=== PATIENT | female | born 1945 | race Caucasian/White ===

== ENCOUNTER → 2017-01-08 | Outpatient (CLI) | payer BC ==
--- NOTE | 2017-01-08 15:13 | MAMMOGRAPHY REPORT ---
BILATERAL DIGITAL SCREENING MAMMOGRAM WITH CAD: 01/08/2017 CLINICAL HISTORY: Routine screening. Patient has no complaints. TECHNIQUE: Bilateral CC and MLO views were obtained. Current study was also evaluated with a Compute r Aided Detection (CAD) system. COMPARISON: Comparison is made to exams dated: 01/04/2016 mammogram, 12/31/2014 mammogram, 4 mammogram, 12/27/2012 mammogram, 12/27/2011 mammogram, and 12/21/2010 mammogram - [facility]. BREAST COMPOSITION: The tissue of both breasts is heterogeneously dense, which may obscure small mas ses. FINDINGS: Linear dense, markers overlie each breast, denoting areas of prior surgery. There are marbella gn vascular calcifications in both breasts. There are diffuse bilateral benign rim calcifications an d scattered and grouped punctate benign-appearing microcalcifications. No obvious new mass, webmethods architect ural distortion or cluster of new, suspicious microcalcifications is seen. IMPRESSION: ACR BI-RADS CATEGORY 2: BENIGN There is no mammographic evidence of malignancy. A 1 year screening mammogram is recommended. The pa tient will receive written notification of the results. Approximately 10% of breast cancers are not detected with mammography. A negative mammographic report should not delay biopsy if a clinically suggestive mass is present. Eri Wiley M.D. ay/:01/08/2017 11:02:33 Director Of Student Financial Services: Mirian BULLARDR, M, [facility] letter sent: Normal 1/2 BI-RADS Code: ACR BI-RADS Category 2: Benign
== END | disposition home or self-care (01) ==
LOC: C.MAMM 10:35
PROVIDERS: ATTEND Family Medicine
DX: Z12.31 Encounter for screening mammogram for malignant neoplasm of breast (principal)

== ENCOUNTER → 2017-06-13 | Outpatient (CLI) | payer BC ==
--- NOTE | 2017-06-13 11:12 | DIAGNOSTIC IMAGING REPORT ---
ABDOMEN LIMITED (US) CLINICAL HISTORY: 71 years-old Female presenting with ELEVATED LFT'S. TECHNIQUE: Real-time grayscale and limited color Doppler ultrasound imaging of the abdomen limited to the right upper quadrant was performed. COMPARISON: None. FINDINGS: Pancreas: Visualized portions of the pancreatic head and body normal. Liver: Moderately hyperechogenic parenchyma with partial obscuration of the right hemidiaphragm, likely indicating moderate steatosis. The liver measures 16 cm in maximal sagittal dimension. No sonographic evidence of hepatic mass. Main portal vein patent with normal directional flow. Biliary: No intrahepatic biliary ductal dilatation. Common bile duct measures up to 4 mm in diameter. Gallbladder: Gallstones without evidence of gallbladder distention, wall thickening, or pericholecystic fluid or inflammatory change. Right kidney: Multiple simple cysts evident, the largest at the upper pole measuring 2.7 cm. No hydronephrosis. Ascites: None. Other: None. IMPRESSION: 1. Cholelithiasis. No evidence of cholecystitis or biliary ductal dilatation. 2. Hepatic steatosis. Correlate with liver function tests to exclude steatohepatitis as a cause for abdominal pain. Electronically signed by: Ayo Kimball M.D. 06/13/2017 11:10 AM Dictated Date/Time: 06/13/2017 11:09 AM
== END | disposition home or self-care (01) ==
LOC: C.ULTR 09:26
PROVIDERS: ATTEND Family Medicine
DX: R79.89 Other specified abnormal findings of blood chemistry (principal); Z88.2 Allergy status to sulfonamides; Z88.8 Allergy status to other drugs, medicaments and biological substances; K80.20 Calculus of gallbladder without cholecystitis without obstruction; K76.0 Fatty (change of) liver, not elsewhere classified

== ENCOUNTER 2019-07-08 14:04 | Inpatient (IN) ==
[2019-07-08] MEDS ORDERED: SODIUM CHLORIDE 0.9% 1000ML 1,000 ML IV SCH (14:45)
[2019-07-08] MEDS ORDERED: SODIUM CHLORIDE 0.9% 1000ML 2,000 ML IV ONE (15:02)
--- NOTE | 2019-07-08 15:02 | Emergency Department Note ---
Impression & Plan Weakness, Breast cancer, Abnormal ECG, Diarrhea ED Provider Note NAME: BRENDA GONSAELS AGE: 73 SEX: F : 1945 ARRIVES VIA: Ambulance INFORMANT: Patient ED PROVIDER(S): Rocael Barragan DO CHIEF COMPLAINT: weakness HPI: Patient is a 73-year-old female that presents the ER for weakness. She notes that she was going to get IV fluids from the cancer center and she has needed this throughout her entire treatment of chemo. When she was walking down she became extremely weak. She was lowered to the ground. She did not pass out. This occurred just prior to arrival. She was brought in by EMS. She has history of breast cancer which is metastatic. Last dose of chemo was 3 weeks ago. She denies any dizziness, lightheadedness, chest pain shortness of breath or vomiting. She admits to 4-5 episodes of diarrhea which she has been having throughout her chemotherapy per day. She has also been having persistent nausea as well. No other exacerbating or remitting factors. She notes she has been having bowel incontinence. No focal weakness or numbness in her arms or legs. ROS: See above HPI for pertinent positives & negatives. A total of 10 systems reviewed and were otherwise negative. PAST MEDICAL HISTORY:See Below PAST SURGICAL HISTORY:See Below FAMILY HISTORY:See Below SOCIAL HISTORY:See Below HOME MEDICATIONS:See Below ALLERGIES:See Below VITALS:See Below PHYSICAL EXAMINATION: GENERAL: Sitting up in bed, alert, well appearing, well nourished, no distress, non-toxic EYE EXAM: normal conjunctiva. OROPHARYNX: no exudate, no erythema, lips, buccal mucosa, and tongue normal and mucous membranes are moist NECK: supple, no nuchal rigidity, no adenopathy, non-tender CHEST: Port in right chest LUNGS: Clear to auscultation. Normal chest wall mechanics HEART: no murmurs, S1 normal and S2 normal ABDOMEN: abdomen soft, non-tender, normo-active bowel sounds, no masses, no rebound or guarding. BACK: Back is symmetrical on inspection and there is no deformity, no midline tenderness, no CVA tenderness. SKIN: no rashes and no bruising UPPER EXTREMITIES: upper extremities are grossly normal. LOWER EXTREMITIES: No pitting edema. Calves are equal bilateral NEURO EXAM: Normal sensorium, cranial nerves II-XII grossly intact, normal spe ech, no gross weakness of arms, no gross weakness of legs. MEDICAL DECISION MAKING: Patient is a 73-year-old female with a past medical history of metastatic breast cancer that presents the ER for diffuse weakness loss of bowel function. She was brought in by EMS. IV was established blood work was obtained. Labs show no significant leukocytosis or anemia. INR was unremarkable. D-dimer was elevated. BMP with mild hypokalemia. Creatinine slightly elevated at 1.4 off of baseline of 1. Potassium was repleted. Magnesium was slightly low at 1.7. Mild transaminitis. Troponin was negative. Lipase unremarkable. TSH was elevated but free T4 was normal. Chest x-ray was unremarkable. CTA was performed of the chest due to the positive d-dimer and abnormal EKG with ST depressions and T WI in the inferior and lateral leads which are new. CTA was negative. Patient was updated bedside. She was given 2 L IV fluids. Discussed with hospitalist for observation due to the weakness and questionable dizziness associate with an abnormal EKG. Triage Nursing notes reviewed. Prior medical records reviewed Vital Signs: reviewed and remarkable for no significant abnormalities Differential diagnosis: Infection, dehydration, metabolic abnormality, hypo/hyperglycemia, electrolyte disturbance, anemia, hypoxia, cardiac sources, intracerebral event, toxicologic, neurologic, as well as other pathologies. ER treatment provided: See below Diagnostics interpreted by me: ECG: Sinus rhythm rate of [address] depressions in the inferior anterior and lateral with T wave inversion which is new from old EKG This is new from 03/06/2019 Cardiac Monitoring: An order was placed for continuous cardiac monitoring. The monitor shows a rate of 71 with sinus rhythm. Laboratory studies: As stated above and show below. Imaging studies: Portable AP upright 1 view of the chest shows no focal infiltrate CT Radha of the chest shows no PEs. Consultation(s): Discussed with Gio Shah for further evaluation. ED COURSE: Procedures: none Critical Care: None Past Med/Surg History Medical History (Updated 07/08/19 @ 17:24 by Rocael Barragan DO) Breast cancer, left Constipation Fatty liver High blood pressure High cholesterol Hypothyroidism Lichen sclerosus Rosacea Surgical History (Updated 03/24/19 @ 12:07 by Shira Salinas RN) H/O tooth extraction History of colonoscopy Port-A-Cath in place (03/24/19) Port placement. Dr. Bowling 03/24/19 Social History (Updated 02/28/19 @ 09:43 by Citlalli Bedolla RN) Preferred Language: Faroese Communication Ability: Effective Cloth Stretcher Required: No Beliefs That Will Affect Care: None marital status: Single Current Living Situation: Spouse current occupational status: retired Feels Safe at Home: Yes Smoking Status: Never smoker Hx Alcohol Use: No Hx Substance Use: No Allergies Allergies Allergy/AdvReac Type Severity Reaction Status Date / Time Sulfa (Sulfonamide Allergy Unknown Rash Verified 07/08/19 15:40 Antibiotics) Dxtcrog-Slk-Tbm Reductase AdvReac Unknown Muscle Pain Verified 07/08/19 15:40 Inhibitor Home Meds Home Medications Medication Instructions Recorded Confirmed [id number] 1 drp OPHTHALMIC (EYE) UD PRN 07/08/19 07/08/19 [Refresh Optive Advanced] diphenoxylate-atropine [Lomotil] 1 tab PO UD PRN 07/08/19 07/08/19 levothyroxine 50 mcg PO DAILY 07/08/19 07/08/19 loratadine [Claritin] 10 mg PO DAILY PRN 07/08/19 07/08/19 lorazepam [Ativan] 1 mg PO BID 07/08/19 07/08/19 ondansetron HCl [Zofran] 4 mg PO UD PRN 07/08/19 07/08/19 scopolamine base [Transderm-Scop] 1 patch TRANSDERMAL .Q3DAYS 07/08/19 07/08/19 Results & Data (ED) Vital Signs Vital Signs - 24 hr 07/08/19 14:10 07/08/19 14:42 07/08/19 16:00 Temperature 36.7 C Temperature Source Oral Pulse Rate 92 H 67 Pulse Rate from SpO2 Sensor 68 Pulse Rhythm Regular Pulse Strength Normal Respiratory Rate 20 23 Respiratory Effort / Characteristics Non-Labored Spontaneous Respiratory Depth Normal Respiratory Pattern Regular Blood Pressure 142/67 H Blood Pressure Mean 92 Blood Pressure Position Lying Pulse Oximetry 96 95 100 Oxygen Delivery Method Room Air Room Air Sepsis Recent Fever Within 48 Hours No Sepsis New/Unexplained Change in Mental Status No Sepsis Action Taken by Nursing No Action Required 07/08/19 16:44 Temperature Temperature Source Pulse Rate 75 Pulse Rate from SpO2 Sensor 75 Pulse Rhythm Pulse Strength Respiratory Rate 22 Respiratory Effort / Characteristics Respiratory Depth Respiratory Pattern Blood Pressure 149/58 H Blood Pressure Mean 76 Blood Pressure Position Pulse Oximetry 100 Oxygen Delivery Method Sepsis Recent Fever Within 48 Hours Sepsis New/Unexplained Change in Mental Status Sepsis Action Taken by Nursing Laboratory Data Result diagrams: 07/08/19 15:25 07/08/19 15:25 Lab Results 07/08/19 07/08/19 07/08/19 Range/Units 15:25 15:25 15:25 WBC 10.75 (4.8-10.8) K/uL RBC 4.05 L (4.2-5.4) M/uL Hgb 12.2 (12.0-16.0) g/dL Hct 36.5 L (37-47) % MCV 90.1 (80-100) fL MCH 30.1 (25-34) pg MCHC 33.4 (32-36) g/dL RDW Std Deviation 49.7 H (36.4-46.3) fL RDW Coeff of Rafael 15.0 H (11.5-14.5) % Plt Count 194 (130-400) K/uL MPV 10.3 (7.4-10.4) fL Immature Gran % (Auto) 1.7 % Neut % (Auto) 70.8 % Lymph % (Auto) 15.8 % [place] % (Auto) 11.5 % Eos % (Auto) 0.1 % Baso % (Auto) 0.1 % Immature Gran # (Auto) 0.18 H (0.00-0.02) K/uL Neut # (Auto) 7.61 H (1.4-6.5) K/uL Lymph # (Auto) 1.70 (1.2-3.4) K/uL [place] # (Auto) 1.24 H (0.11-0.59) K/uL Eos # (Auto) 0.01 (0-0.5) K/uL Baso # (Auto) 0.01 (0-0.2) K/uL Toxic Granulation 1+ Dohle Bodies 1+ PT 11.3 (9.0-12.0) Seconds INR 1.1 (0.9-1.1) APTT 24.2 (21.0-31.0) Seconds PTT Ratio 0.9 D-Dimer 1270 H* (0-500) ug/L FEU Sodium 135 L (136-145) mmol/L Potassium 3.1 L (3.5-5.1) mmol/L Chloride 101 (98-107) mmol/L Carbon Dioxide 22 (21-32) mmol/L Anion Gap 12.0 H (3-11) BUN 43 H (7-18) mg/dl Creatinine 1.46 H (0.6-1.2) mg/dl Est Cr Clr Drug Dosing 32.6 ml/min Est GFR ( Amer) 41.2 Est GFR (Non-Af Amer) 35.6 BUN/Creatinine Ratio 29.5 H (10-20) Glucose 140 H (70-99) mg/dl Calcium 9.4 (8.5-10.1) mg/dl Magnesium 1.7 L (1.8-2.4) mg/dl Total Bilirubin 0.8 (0.2-1) mg/dl AST 46 H (15-37) U/L ALT 94 H (12-78) U/L Alkaline Phosphatase 92 (45-117) U/L Total Creatine Kinase 31 (26-192) U/L Troponin I < 0.015 (0-0.045) ng/ml Total Protein 6.9 (6.4-8.2) gm/dl Albumin 3.5 (3.4-5.0) gm/dl Globulin 3.4 (2.5-4.0) gm/dl Albumin/Globulin Ratio 1.0 (0.9-2) Lipase 349 (73-393) U/L TSH 6.610 H (0.300-4.500) uIu/ml Free T4 1.53 (0.8-1.6) ng/dl Administered Medications Ioversol (Optiray 320 125ml) 119 ml IV ONCE PRN PRN Reason: Interaction Checking Stop: 07/12/19 16:28 Last Admin: 07/08/19 16:29 Dose: 119 ml Documented by: [id number] Discontinued Medications Sodium Chloride (Nss 1000ml) 1,000 mls @ 999 mls/hr IV .Q1H1M LISSETTE Stop: 07/08/19 15:45 Last Infusion: 07/08/19 16:25 Dose: 0 mls/hr Documented by: [id number] Admin: 07/08/19 15:30 Dose: 999 mls/hr Documented by: [id number] Sodium Chloride (Nss 1000ml) 2,000 mls @ 999 mls/hr IV .Q2H1M ONE Stop: 07/08/19 17:02 Last Admin: 07/08/19 16:25 Dose: 999 mls/hr Documented by: [id number] Discharge Plan Visit Data Chief Complaint: Syncope (Near Syncope) ED Provider: Rocael Barragan Discharge Problem: Weakness, Breast cancer, Abnormal ECG, Diarrhea Forms Stand Alone Forms: [facility] xaitment Prescriptions Prescriptions: No Action ondansetron HCl [Zofran] 8 mg tablet 4 mg PO UD PRN (Reason: Nausea) RF: 0 diphenoxylate-atropine [Lomotil] 2.5-0.025 mg tablet 1 tab PO UD PRN (Reason: Diarrhea) RF: 0 levothyroxine 50 mcg tablet 50 mcg PO DAILY RF: 0 lorazepam [Ativan] 1 mg tablet 1 mg PO BID RF: 0 scopolamine base [Transderm-Scop] 1 mg over 3 days patch 3 day 1 patch transdermal .Q3DAYS RF: 0 loratadine [Claritin] 10 mg Tablet 10 mg PO DAILY PRN (Reason: ALLERGIES) RF: 0 Refresh Optive Advanced 0.5-1-0.5 % Drops 1 drp OPHTHALMIC (EYE) UD PRN (Reason: Dry Eyes) RF: 0 Discharge Problem: Breast cancer Qualifiers: Breast location: unspecified site of breast Estrogen receptor status: unspecified Patient sex: female Laterality: unspecified laterality Qualified Code(s): C50.919 - Malignant neoplasm of unspecified site of unspecified female breast Diarrhea Qualifiers: Diarrhea type: unspecified type Qualified Code(s): R19.7 - Diarrhea, unspecified
--- NOTE | 2019-07-08 15:09 | XRay Report ---
XR chest 1V portable HISTORY: syncope COMPARISON: None. FINDINGS: Mild elevation of the right hemidiaphragm, unchanged. The lungs are clear. No pleural effus ions. No pneumothorax. The heart is normal in size. Right subclavian Port-A-Cath terminates at the pr oximal SVC. IMPRESSION: No acute process. ACT 112: Negative or not required by law. Electronically signed by: James Hollingsworth M.D. 07/08/2019 3:07 PM
[2019-07-08 15:35] LABS: Hematocrit (blood only) 36.5 % (37-47); Hemoglobin 12.2 g/dL (12.0-16.0); Mean Corpuscular Hemoglobin 30.1 pg (25-34); Mean Corpuscular Hgb Conc 33.4 g/dL (32-36); Mean Corpuscular Volume 90.1 fL (80-100); Mean Platelet Volume 10.3 fL (7.4-10.4); Platelet Count 194 K/uL (130-400); RDW Standard Deviation 49.7 fL (36.4-46.3); Red Blood Count 4.05 M/uL (4.2-5.4); White Blood Count 10.75 K/uL (4.8-10.8)
[2019-07-08 16:03] LABS: Alanine Aminotransferase 94 U/L (12-78); Albumin Level 3.5 gm/dl (3.4-5.0); Aspartate Aminotransferase 46 U/L (15-37); BUN Creatinine Ratio 29.5 (10-20); Blood Urea Nitrogen 43 mg/dl (7-18); Calcium 9.4 mg/dl (8.5-10.1); Carbon Dioxide 22 mmol/L (21-32); Chloride 101 mmol/L (98-107); Creatinine Clr Calc Pharmacy 32.6 ml/min; Est GFR (African American) 41.2; Est GFR (Non-African American) 35.6; Glucose 140 mg/dl (70-99); Lipase 349 U/L (73-393); Magnesium 1.7 mg/dl (1.8-2.4); Potassium 3.1 mmol/L (3.5-5.1); Sodium 135 mmol/L (136-145)
[2019-07-08 16:04] LABS: INR 1.1 (0.9-1.1); Partial Thromboplastin Ratio 0.9; Partial Thromboplastin Time 24.2 Seconds (21.0-31.0); Prothrombin Time 11.3 Seconds (9.0-12.0)
[2019-07-08 16:09] LABS: D Dimer 1270 ug/L FEU (0-500)
[2019-07-08 16:13] LABS: Alkaline Phosphatase 92 U/L (45-117); Bilirubin,Total 0.8 mg/dl (0.2-1); Creatine Kinase 31 U/L (26-192); Globulin 3.4 gm/dl (2.5-4.0); Total Protein 6.9 gm/dl (6.4-8.2); Troponin I < 0.015 ng/ml (0-0.045)
--- NOTE | 2019-07-08 16:14 | Electrocardiogram Report ---
Test Reason : Blood Pressure : / mmHG Vent. Rate : 093 BPM Atrial Rate : 093 BPM P-R Int : 140 ms QRS Dur : 090 ms QT Int : 352 ms P-R-T Axes : 030 041 -84 degrees QTc Int : 437 ms Poor data quality, interpretation may be adversely affected Normal sinus rhythm Abnormal ECG When compared with ECG of 06-MAR-2019 11:15, Vent. rate has increased BY 34 BPM T wave inversion now evident in Inferior leads T wave inversion now evident in Anterolateral leads Confirmed by Rishi Bautista ([id number]) on 07/08/2019 4:14:33 PM Referred By: Confirmed By:Rishi Bautista
[2019-07-08 16:25] LABS: T4 Free Thyroxine 1.53 ng/dl (0.8-1.6)
[2019-07-08 16:29] LABS: Basophils # (auto) 0.01 K/uL (0-0.2); Basophils % (auto) 0.1 %; Dohle Bodies 1+; Eosinophils # (auto) 0.01 K/uL (0-0.5); Eosinophils % (auto) 0.1 %; Immature Granulocytes # (auto) 0.18 K/uL (0.00-0.02); Immature Granulocytes % (auto) 1.7 %; Lymphocytes % (auto) 15.8 %; Monocytes # (auto) 1.24 K/uL (0.11-0.59); Monocytes % (auto) 11.5 %; Neutrophils # (auto) 7.61 K/uL (1.4-6.5); Neutrophils % (auto) 70.8 %; Toxic Granulation 1+
[2019-07-08] MEDS ORDERED: OPTIRAY 320 125ml IV PRN (16:29)
--- NOTE | 2019-07-08 16:38 | CT Scan Report ---
CT angio chest PE protocol CT DOSE: 541.45 mGy.cm HISTORY: Chest pain. Dyspnea. PE TECHNIQUE: Multiaxial CT images of the chest were performed following the intravenous administration of contrast to evaluate the pulmonary arteries. Maximal intensity projection images were also obtaine d. A dose lowering technique was utilized adhering to the principles of ALARA. COMPARISON STUDY: None. FINDINGS: There is a normal caliber thoracic aorta with no evidence for dissection. There is no evide nce for pulmonary embolus. No pleural effusions. No pneumothorax. The liver and spleen are unremarkab le. No mediastinal or hilar lymphadenopathy. The central airways are patent. The lungs are clear. IMPRESSION: No evidence for pulmonary embolus. The lungs are considered clear. ACT 112: Negative or not required by law. The above report was generated using voice recognition software. It may contain grammatical, syntax or spelling errors. Electronically signed by: Sachin Ko M.D. 07/08/2019 4:37 PM
[2019-07-08] MEDS ORDERED: MAGNESIUM SULFATE / D5W 1 GM/100 ML BAG IV STA (17:37)
--- NOTE | 2019-07-08 18:11 | History & Physical Report ---
Date of Service July 08, 2019 Assessment & Plan (1) Weakness: Generalized suspected secondary to severe protein-calorie malnutrition and dehydration from diarrhea. Dietary consult PT eval (2) Abnormal ECG: ST changes without chest pain or shortness of breath. Will repeat troponin in AM but suspect demand-ischemia related to dehydration. Patient to be observed on telemetry for this reason (3) Diarrhea: Continue to monitor. Unlikely c. diff as related to chemotherapy but if watery will need to test for this. (4) Anisocoria: Left mydriasis suspect secondary to scopolamine patch Monitor for improvement off of patch. Lack of other focal neurological findings therefore do not feel CT head required at this stage. (5) Breast cancer, left: taking a break from chemotherapy due to reduced weight and malnourished state (6) Severe protein-calorie malnutrition: Boost ordered Dietary consult (7) Nausea: Suspect related to chemotherapy, no longer on this therefore will continue ondansetron PRN but will discontinue scopolamine patch due to anisocoria as above and in case contributing towards her drowsiness. (8) DVT prophylaxis: Heparin 5000 units BID Admission and Anticipated Discharge Date Admission Date: 07/08/2019 History of Present Illness Chief Complaint: Generalized weakness Primary Care Provider: Josemanuel Lee MD Ciarra Barrios is a 73 year old female who presents to the ER after being unable to walk into the [facility] center for her IV fluid treatment for ongoing diarrhea secondary to chemotherapy. She notes her chemotherapy is currently on hold due to this side effect and her weight loss. Today while trying to walk up the stops she sudden felt very weak in her legs and was unable to get any further so sat down and her friend alerted the [facility] center who advised her to call for an ambulance. On prior documentation it was noted she was presyncopal however the patient denies this to me and just reports generalized weakness. She has not been out of the bed since then but feels improved since coming to the ER. With regards to her EKG changes she denies any shortness of breath or chest pain. No claudication, presyncope, syncope or palpitations. Allergies Allergy/AdvReac Type Severity Reaction Status Date / Time Sulfa (Sulfonamide Allergy Unknown Rash Verified 07/08/19 15:40 Antibiotics) Ropwfmy-Vzw-Mkv Reductase AdvReac Unknown Muscle Pain Verified 07/08/19 15:40 Inhibitor Home Medications Home Medications Medication Instructions Recorded Confirmed Type [id number] 1 drp OPHTHALMIC (EYE) UD PRN 07/08/19 07/08/19 History [Refresh Optive Advanced] diphenoxylate-atropine [Lomotil] 1 tab PO BID PRN 07/08/19 07/08/19 History levothyroxine 50 mcg PO DAILY 07/08/19 07/08/19 History loratadine [Claritin] 10 mg PO DAILY PRN 07/08/19 07/08/19 History lorazepam [Ativan] 1 mg PO BID 07/08/19 07/08/19 History ondansetron HCl [Zofran] 4 mg PO UD PRN 07/08/19 07/08/19 History scopolamine base [Transderm-Scop] 1 patch TRANSDERMAL .Q3DAYS 07/08/19 07/08/19 History Past Med/Surg History Medical History (Updated 07/08/19 @ 22:01 by Gio Shah MD) Breast cancer, left Constipation Fatty liver High blood pressure High cholesterol Hypothyroidism Lichen sclerosus Rosacea Surgical History (Updated 03/24/19 @ 12:07 by Shira Salinas RN) H/O tooth extraction History of colonoscopy Port-A-Cath in place (03/24/19) Port placement. Dr. Bowling 03/24/19 Social History (Updated 02/28/19 @ 09:43 by Citlalli Bedolla, RN) Preferred Language: Mauritian Communication Ability: Effective Buggy Runner Required: No Beliefs That Will Affect Care: Hinduism Hinduism Beliefs: Jainism marital status: Single Current Living Situation: Alone current occupational status: retired Other Information That Helps Us Care for You: No Feels Safe at Home: No Is there a partner from a previous relationship who is making you feel unsafe now?: No Any Concerns about Your Family Situation: No Would You Like to Speak to Someone About Your Situation: No Safety Concerns: Feels Safe At This Time Smoking Status: Never smoker Hx Alcohol Use: No Hx Substance Use: No Review of Systems Review of Systems: All systems reviewed & are unremarkable except as noted in HPI & below Physical Exam Constitutional: well developed and + cachectic; + not well nourished and no acute distress Eyes: + anicteric sclerae and + anisocoria (mydriasis left eye) ENMT: external ear and nose normal, oropharynx normal Neck: trachea midline, no thyromegaly Respiratory: normal respiratory effort, lungs clear to auscultation Cardiovascular: RRR, no murmur, no edema Gastrointestinal (Abdomen): normal bowel sounds, soft, nontender, no hepatosplenomegaly Musculoskeletal: no cyanosis or clubbing, extremities motor strength 5/5 Skin: no rashes, warm and dry Neurologic: moves all extremities and awake; no focal motor deficits (LE stren gth 5/5 b/l equal) and not confused Speech / Cognition: normal speech Motor/Sensory: no tremor, no pronator drift and no sensory deficit Psychiatric: A+Ox3, euthymic affect Results & Data Results & Data ([facility]) Vital Signs (Past 12 Hours) Vital Signs Temp Pulse Resp BP Pulse Ox 07/08/19 17:30 68 22 156/56 H 100 07/08/19 17:01 68 18 122/65 98 07/08/19 16:44 75 22 149/58 H 100 07/08/19 16:00 67 23 100 07/08/19 14:42 95 07/08/19 14:10 36.7 C 92 H 20 142/67 H 96 Diagnostic Findings XR chest 1V portable IMPRESSION: No acute process. CT angio chest PE protocol IMPRESSION: No evidence for pulmonary embolus. The lungs are considered clear. ECG Indication: weakness Rate (beats per minute): 93 Rhythm: normal sinus Findings: + T-wave inversion (anterlateral, inferior) Comparison ECG Date: from (03/06/2019) Change: the following changes noted (TWI are new) Code Status & VTE Plan Code Status DNR/DNI as per patient wishes VTE Prophylaxis Plan VTE Prophylaxis will be ordered: Yes PG Care Time/CCT Total # of Minutes Spent Total Time Spent with Patient: Total time spent is greater than 50% in coordination of care (as documented) at patient's floor/unit and/or counseling patient: Coding Level of Care Code 40603 OBS Care - Level 3 Diagnoses Weakness R53.1 Abnormal ECG R94.31 Diarrhea R19.7 Diarrhea type: unspecified type Anisocoria H57.02 Breast cancer, left C50.912 Severe protein-calorie malnutrition E43 Nausea R11.0 DVT prophylaxis Z29.9 (1) Diarrhea Diarrhea type: unspecified type Qualified Code(s): R19.7 - Diarrhea, unspecified
[2019-07-08] MEDS ORDERED: ONDANSETRON INJ 2 MG/ML 2 ML VIAL ONE (19:37)
[2019-07-08] MEDS ORDERED: DIPHENOXYLATE/ATROPINE 2.5/0.025MG TAB PO PRN ×2 (19:55→21:53)
[2019-07-08] MEDS ORDERED: LORATADINE 10 MG TAB PO PRN (19:55)
[2019-07-08] MEDS ORDERED: ARTIFICIAL TEARS OP PRN (20:00)
[2019-07-08] MEDS: HEPARIN SOD 5,000 UNIT/0.5 ML VIAL SQ SCH (20:48)
[2019-07-08] MEDS: POTASSIUM CHLORIDE 40 MEQ in SODIUM CHLORIDE 0.9% 1000ML 1,000 ML IV SCH (20:48)
[2019-07-08] MEDS ORDERED: ACETAMINOPHEN 325 MG TAB PO PRN (21:02)
[2019-07-08] MEDS ORDERED: ONDANSETRON INJ 2 MG/ML 2 ML VIAL IV PRN (21:02)
[2019-07-08] MEDS ORDERED: LORazepam 0.5 MG TAB PO PRN (21:23)
[2019-07-09] MEDS ORDERED: ONDANSETRON INJ 2 MG/ML 2 ML VIAL IV STA (00:11)
[2019-07-09] MEDS: LEVOTHYROXINE SODIUM 50 MCG TABLET PO SCH (05:32)
[2019-07-09] MEDS: HEPARIN SOD 5,000 UNIT/0.5 ML VIAL SQ SCH ×2 (07:47→20:35)
[2019-07-09] MEDS: POTASSIUM CHLORIDE 40 MEQ in SODIUM CHLORIDE 0.9% 1000ML 1,000 ML IV SCH ×2 (07:47→19:10)
[2019-07-09 08:40] LABS: Albumin Level 2.6 gm/dl (3.4-5.0); BUN Creatinine Ratio 30.4 (10-20); Calcium 8.3 mg/dl (8.5-10.1); Creatinine Clr Calc Pharmacy 50.1 ml/min; Est GFR (African American) 69.4; Est GFR (Non-African American) 59.8; Potassium 3.3 mmol/L (3.5-5.1)
[2019-07-09 08:47] LABS: Albumin Globulin Ratio 0.9 (0.9-2); Bilirubin,Total 0.6 mg/dl (0.2-1); Globulin 2.9 gm/dl (2.5-4.0); Phosphorus 2.6 mg/dl (2.5-4.9); Total Protein 5.5 gm/dl (6.4-8.2); Troponin I 0.017 ng/ml (0-0.045)
[2019-07-09] MEDS: METOCLOPRAMIDE HCL INJ 5 MG/ML 2 ML VIAL IV SCH ×2 (13:37→19:10)
--- NOTE | 2019-07-09 16:07 | Hospitalist Progress Note ---
Date of Service July 09, 2019 Assessment & Plan (1) Weakness: Generalized suspected secondary to severe protein-calorie malnutrition and dehydration from diarrhea. participating in therapy start Reglan to try to help with nausea/vomiting, dietary consult placed CM making referral to [facility] for rehab (2) Abnormal ECG: ST changes without chest pain or shortness of breath no elevation in troponin no further work up at this time (3) Diarrhea: C diff negative (4) Anisocoria: Left mydriasis suspect secondary to scopolamine patch improved (5) Breast cancer, left: taking a break from chemotherapy due to reduced weight and malnourished state (6) Severe protein-calorie malnutrition: Boost ordered Dietary consult (7) Nausea: Suspect related to chemotherapy, no longer on this therefore will continue ondansetron PRN but will discontinue scopolamine patch due to anisocoria as above and in case contributing towards her drowsiness start on Reglan 10mg IV q6, see if she has improvement over next 48 hours (8) DVT prophylaxis: Heparin 5000 units BID (9) Hypokalemia: improving with IV fluids, continue 40mEq in fluids, repeat BMP tomorrow (10) Dehydration: resolving with IV fluids, continue another 24 hours as PO intake is sub optimal Admission and Anticipated Discharge Date Admission Date: July 08, 2019 Subjective patient with difficult time eating, she vomits anything she tries to eat says she has tried numerous anti-emetics stopped chemo in May but still with poor oral intake, vomiting, diarrhea, getting weaker participating in therapy d/w CM, made referral to [facility], patient agrees will try some Reglan for her nausea/vomiting no chest pain, no dyspnea, no fever/chills Review of Systems Review of Systems: All systems reviewed & are unremarkable except as noted in HPI & below Constitutional: + fatigue and + weakness; no fever Respiratory: no cough and no dyspnea Cardiovascular: no chest pain and no edema Gastrointestinal: + nausea and + vomiting; no abdominal pain, no constipation and no diarrhea/loose stools Physical Exam Constitutional: well developed and + thin; no acute distress Eyes: PERRL, conjunctivae normal, anicteric sclerae ENMT: external ear and nose normal, oropharynx normal Neck: trachea midline, no thyromegaly Respiratory: normal respiratory effort, lungs clear to auscultation Cardiovascular: RRR, no murmur, no edema Gastrointestinal (Abdomen): normal bowel sounds, soft, nontender, no hepatosplenomegaly Musculoskeletal: no cyanosis or clubbing, extremities motor strength 5/5 Skin: no rashes, warm and dry Neurologic: patellar DTR's 2+ bilat, sensation intact and PERRL, EOMI, accommodation nl, no face palsy, no dysarthria Psychiatric: A+Ox3, euthymic affect Lymphatic: no cervical or axillary lymphadenopathy Results & Data Results & Data ([facility]) Vital Signs (Past 12 Hours) Vital Signs Temp Pulse Pulse Resp BP Pulse Ox 07/09/19 15:17 36.6 C 73 18 151/70 H 92 07/09/19 14:49 75 07/09/19 11:13 36.7 C 80 18 157/67 H 96 07/09/19 07:44 36.9 C 61 20 147/85 H 97 07/09/19 07:15 67 Laboratory Results Laboratory Results - last 24 hr 07/08/19 07/08/19 07/08/19 15:25 15:25 15:25 Immature Gran % (Auto) 1.7 Neut % (Auto) 70.8 Lymph % (Auto) 15.8 [place] % (Auto) 11.5 Eos % (Auto) 0.1 Baso % (Auto) 0.1 Immature Gran # (Auto) 0.18 H Neut # (Auto) 7.61 H Lymph # (Auto) 1.70 [place] # (Auto) 1.24 H Eos # (Auto) 0.01 Baso # (Auto) 0.01 Toxic Granulation 1+ Dohle Bodies 1+ PT 11.3 INR 1.1 APTT 24.2 PTT Ratio 0.9 D-Dimer 1270 H* Sodium Potassium Chloride Carbon Dioxide Anion Gap BUN Creatinine Est Cr Clr Drug Dosing Est GFR ( Amer) Est GFR (Non-Af Amer) BUN/Creatinine Ratio Glucose POC Glucose Calcium Phosphorus Magnesium Total Bilirubin 0.8 AST ALT Alkaline Phosphatase 92 Total Creatine Kinase 31 Troponin I < 0.015 Total Protein 6.9 Albumin Globulin 3.4 Albumin/Globulin Ratio 1.0 TSH 6.610 H Free T4 1.53 07/09/19 07/09/19 07:26 07:33 Immature Gran % (Auto) Neut % (Auto) Lymph % (Auto) [place] % (Auto) Eos % (Auto) Baso % (Auto) Immature Gran # (Auto) Neut # (Auto) Lymph # (Auto) [place] # (Auto) Eos # (Auto) Baso # (Auto) Toxic Granulation Dohle Bodies PT INR APTT PTT Ratio D-Dimer Sodium 141 Potassium 3.3 L Chloride 111 H Carbon Dioxide 22 Anion Gap 8.0 BUN 29 H Creatinine 0.95 D Est Cr Clr Drug Dosing 50.1 Est GFR ( Amer) 69.4 Est GFR (Non-Af Amer) 59.8 BUN/Creatinine Ratio 30.4 H Glucose 91 POC Glucose 87 Calcium 8.3 L Phosphorus 2.6 Magnesium 2.0 Total Bilirubin 0.6 AST 29 ALT 63 Alkaline Phosphatase 70 Total Creatine Kinase Troponin I 0.017 Total Protein 5.5 L D Albumin 2.6 L Globulin 2.9 Albumin/Globulin Ratio 0.9 TSH Free T4 Medications Administered Current Inpatient Medications Acetaminophen (Tylenol) 650 mg PO Q4H PRN PRN Reason: Pain or Fever Stop: 08/07/19 21:01 Artificial Tears (Artificial Tears) 1 drops OP PRN PRN PRN Reason: DRY EYES Stop: 08/07/19 19:59 Diphenoxylate HCl/Atropine (Lomotil) 1 tab PO Q6H PRN PRN Reason: Diarrhea Stop: 08/07/19 19:54 Heparin Sodium (Porcine) (Heparin Sodium (Porcine)) 5,000 units SQ Q12 [facility] Stop: 08/07/19 20:59 Last Admin: 07/09/19 07:47 Dose: 5,000 units Documented by: Potassium Chloride 40 meq/ (Sodium Chloride) 1,020 mls @ 100 mls/hr IV .[id number] [facility] Stop: 08/07/19 20:14 Last Admin: 07/09/19 07:47 Dose: 100 mls/hr Documented by: Levothyroxine Sodium (Synthroid) 50 mcg PO DAILYBB [facility] Stop: 08/08/19 06:29 Last Admin: 07/09/19 05:32 Dose: Not Given Documented by: Loratadine (Claritin) 10 mg PO DAILY PRN PRN Reason: ALLERGIES Stop: 08/07/19 19:54 Lorazepam (Ativan) 0.5 mg PO Q12H PRN PRN Reason: Anxiety Stop: 08/07/19 21:22 Metoclopramide HCl (Reglan) 10 mg IV Q6H [facility] Stop: 08/08/19 12:59 Last Admin: 07/09/19 13:37 Dose: 10 mg Documented by: Ondansetron HCl (Zofran) 4 mg IV Q6H PRN PRN Reason: Nausea Stop: 08/07/19 21:01 PG Care Time/CCT Total # of Minutes Spent Total Time Spent with Patient: Total time spent is greater than 50% in coordination of care (as documented) at patient's floor/unit and/or counseling patient: Coding Level of Care Code 16017 Subseq Hosp Care Lvl 3 Diagnoses Weakness R53.1 Abnormal ECG R94.31 Diarrhea R19.7 Diarrhea type: unspecified type Anisocoria H57.02 Breast cancer, left C50.912 Severe protein-calorie malnutrition E43 Nausea R11.0 DVT prophylaxis Z29.9 Hypokalemia E87.6 Dehydration E86.0 (1) Diarrhea Diarrhea type: unspecified type Qualified Code(s): R19.7 - Diarrhea, unspecified
[2019-07-10] MEDS: METOCLOPRAMIDE HCL INJ 5 MG/ML 2 ML VIAL IV SCH ×4 (00:07→19:33)
[2019-07-10] MEDS: POTASSIUM CHLORIDE 40 MEQ in SODIUM CHLORIDE 0.9% 1000ML 1,000 ML IV SCH ×2 (05:17→15:52)
[2019-07-10] MEDS: LEVOTHYROXINE SODIUM 50 MCG TABLET PO SCH (05:17)
[2019-07-10] MEDS: HEPARIN SOD 5,000 UNIT/0.5 ML VIAL SQ SCH ×2 (08:36→21:21)
[2019-07-10] MEDS ORDERED: ONDANSETRON INJ 2 MG/ML 2 ML VIAL IV PRN (10:39)
[2019-07-10] MEDS ORDERED: DEXAMETHASONE SOD PHOSPHATE 6 MG in SYRINGE 0 ML IV SCH (11:00)
[2019-07-10] MEDS: HEPARIN 100 UNIT/ML 5ML FLUSH FLUSH PRN (12:19)
--- NOTE | 2019-07-10 13:00 | Magnetic Resonance Report ---
MR brain wo con HISTORY: 73 years-old Female Intractable vomiting, breast CA, r/o brain mets acute vomiting. History of breast cancer. COMPARISON: PET CT 02/24/2019 TECHNIQUE: Planar multisequence MRI of the brain was obtained without the use of IV contrast. FINDINGS: Steno Pool Supervisor localizer images demonstrate no gross extracranial abnormality. There is no restricted diffusio n to suggest acute or subacute infarct. Midline structures including the corpus callosum, brainstem, optic chiasm, pituitary and pineal glands appear unremarkable on the sagittal T1 series. There is no cerebellar tonsillar herniation. Note is made of hyperostosis frontalis interna. Degenerative changes are seen involving the imaged cervical spine. There is no acute intracranial hemorrhage, midline shift, abnormal extra axial collection, hydrocepha lana or intracranial mass. Age-related involutional changes. Extensive T2/FLAIR hyperintensities about the white matter are suggestive of chronic microvascular ischemic disease. Evaluation for metastatic disease is limited without the use of IV contrast. Major vascular flow voids are unremarkable. Masto id air cells are clear. Mild mucosal thickening of the ethmoid air cells and nasal turbinates. The sk ull, orbits and soft tissues are otherwise unremarkable. IMPRESSION: 1. No acute intracranial abnormality. 2. Age-related involutional changes with T2/FLAIR hyperintensities throughout the white matter sugges tive of probable chronic microvascular ischemic disease. 3. Limited evaluation for metastatic disease without the use of IV contrast. ACT 112: Negative or not required by law. The above report was generated using voice recognition software. It may contain grammatical, syntax o r spelling errors. Electronically signed by: Tomas Valdes M.D. 07/10/2019 12:59 PM
--- NOTE | 2019-07-10 17:33 | Hospitalist Progress Note ---
Date of Service July 10, 2019 Assessment & Plan (1) Weakness: Generalized suspected secondary to severe protein-calorie malnutrition and dehydration from diarrhea. participating in therapy start Reglan to try to help with nausea/vomiting -- no improvement today CM making referral to [facility] for rehab not medically stable, will make a full admission (2) Abnormal ECG: ST changes without chest pain or shortness of breath no elevation in troponin no further work up at this time (3) Diarrhea: C diff negative can use Lomotil PRN but not keeping anything down (4) Anisocoria: Left mydriasis suspect secondary to scopolamine patch improved (5) Breast cancer, left: taking a break from chemotherapy due to reduced weight and malnourished state patient says she wants quality of life over quantity right now she has no quality with her nausea discussed palliative care consult, will wait for time being, confirms she is DNR, DNI (6) Severe protein-calorie malnutrition: Boost ordered Dietary consult (7) Nausea: Suspect related to chemotherapy but no longer on it since May start on Reglan 10mg IV q6 - no improvement consider gall bladder imaging tomorrow, but no pain in RUQ, dyskinesis? (8) DVT prophylaxis: Heparin 5000 units BID (9) Hypokalemia: resolved with IV fluids, continue 40mEq in fluids, repeat BMP tomorrow (10) Dehydration: resolving with IV fluids, continue another 24 hours, reduce rate Admission and Anticipated Discharge Date Admission Date: July 10, 2019 Subjective ongoing nausea and vomiting, cannot keep anything down no improvement with Zofran and Reglan sent for MRI brain -- no evidence of brain mets patient frustrated, cannot keep anything down she does not feel well enough to go to rehab today, I agree no labs today Review of Systems Review of Systems: All systems reviewed & are unremarkable except as noted in HPI & below Gastrointestinal: + nausea, + vomiting and + diarrhea/loose stools; no abdominal pain and no constipation Physical Exam Constitutional: well developed and + thin; no acute distress Eyes: PERRL, conjunctivae normal, anicteric sclerae ENMT: external ear and nose normal, oropharynx normal Neck: trachea midline, no thyromegaly Respiratory: normal respiratory effort, lungs clear to auscultation Cardiovascular: RRR, no murmur, no edema Gastrointestinal (Abdomen): normal bowel sounds, soft, nontender, no hepatosplenomegaly Musculoskeletal: no cyanosis or clubbing, extremities motor strength 5/5 Skin: no rashes, warm and dry Neurologic: patellar DTR's 2+ bilat, sensation intact and PERRL, EOMI, accommodation nl, no face palsy, no dysarthria Psychiatric: A+Ox3, euthymic affect Lymphatic: no cervical or axillary lymphadenopathy Results & Data Results & Data ([facility]) Vital Signs (Past 12 Hours) Vital Signs Temp Pulse Pulse Resp BP Pulse Ox 07/10/19 16:06 62 07/10/19 15:03 37.1 C 72 20 125/64 92 07/10/19 11:10 36.7 C 59 L 20 144/64 H 98 07/10/19 07:46 36.7 C 62 20 138/74 98 07/10/19 07:24 74 Diagnostic Findings MR brain wo con HISTORY: 73 years-old Female Intractable vomiting, breast CA, r/o brain mets acute vomiting. History of breast cancer. COMPARISON: PET CT 02/24/2019 TECHNIQUE: Planar multisequence MRI of the brain was obtained without the use of IV contrast. FINDINGS: Desk Pen Set Assembler localizer images demonstrate no gross extracranial abnormality. There is no restricted diffusion to suggest acute or subacute infarct. Midline structures including the corpus callosum, brainstem, optic chiasm, pituitary and pineal glands appear unremarkable on the sagittal T1 series. There is no cerebellar tonsillar herniation. Note is made of hyperostosis frontalis interna. Degenerative changes are seen involving the imaged cervical spine. There is no acute intracranial hemorrhage, midline shift, abnormal extra axial collection, hydrocephalus or intracranial mass. Age-related involutional changes. Extensive T2/FLAIR hyperintensities about the white matter are suggestive of chronic microvascular ischemic disease. Evaluation for metastatic disease is limited without the use of IV contrast. Major vascular flow voids are unremarkable. Mastoid air cells are clear. Mild mucosal thickening of the ethmoid air cells and nasal turbinates. The skull, orbits and soft tissues are otherwise unremarkable. IMPRESSION: 1. No acute intracranial abnormality. 2. Age-related involutional changes with T2/FLAIR hyperintensities throughout the white matter suggestive of probable chronic microvascular ischemic disease. 3. Limited evaluation for metastatic disease without the use of IV contrast. Medications Administered Current Inpatient Medications Acetaminophen (Tylenol) 650 mg PO Q4H PRN PRN Reason: Pain or Fever Stop: 08/07/19 21:01 Artificial Tears (Artificial Tears) 1 drops OP PRN PRN PRN Reason: DRY EYES Stop: 08/07/19 19:59 Diphenoxylate HCl/Atropine (Lomotil) 1 tab PO Q6H PRN PRN Reason: Diarrhea Stop: 08/07/19 19:54 Heparin Sodium (Porcine) (Heparin Sodium (Porcine)) 5,000 units SQ Q12 [facility] Stop: 08/07/19 20:59 Last Admin: 07/10/19 08:36 Dose: 5,000 units Documented by: Heparin Sodium (Porcine) (Heparin Sod 100 Unit/Ml Flush) 5 ml FLUSH PRN PRN PRN Reason: Flush Stop: 08/08/19 23:44 Last Admin: 07/10/19 12:19 Dose: 5 ml Documented by: Potassium Chloride 40 meq/ (Sodium Chloride) 1,020 mls @ 100 mls/hr IV .[id number] [facility] Stop: 08/07/19 20:14 Last Admin: 07/10/19 15:52 Dose: 100 mls/hr Documented by: Ondansetron HCl 8 mg/ Dextrose 54 mls @ 216 mls/hr IV Q6H PRN PRN Reason: Nausea Stop: 08/09/19 10:46 Levothyroxine Sodium (Synthroid) 50 mcg PO DAILYBB [facility] Stop: 08/08/19 06:29 Last Admin: 07/10/19 05:17 Dose: 50 mcg Documented by: Loratadine (Claritin) 10 mg PO DAILY PRN PRN Reason: ALLERGIES Stop: 08/07/19 19:54 Lorazepam (Ativan) 0.5 mg PO Q12H PRN PRN Reason: Anxiety Stop: 08/07/19 21:22 Metoclopramide HCl (Reglan) 10 mg IV Q6H [facility] Stop: 08/08/19 12:59 Last Admin: 07/10/19 13:22 Dose: 10 mg Documented by: PG Care Time/CCT Total # of Minutes Spent Total Time Spent with Patient: Total time spent is greater than 50% in coordination of care (as documented) at patient's floor/unit and/or counseling patient: Coding Level of Care Code 53566 Subseq Hosp Care Lvl 3 Diagnoses Weakness R53.1 Abnormal ECG R94.31 Diarrhea R19.7 Diarrhea type: unspecified type Anisocoria H57.02 Breast cancer, left C50.912 Severe protein-calorie malnutrition E43 Nausea R11.0 DVT prophylaxis Z29.9 Hypokalemia E87.6 Dehydration E86.0 (1) Diarrhea Diarrhea type: unspecified type Qualified Code(s): R19.7 - Diarrhea, unspecified
[2019-07-10] MEDS: ondansetron HCL 8 MG in DEXTROSE 5% 50 ML IV PRN (21:55)
[2019-07-10] MEDS ORDERED: MoRPHine SULFATE 2 MG/ML CARP IV STA ×2 (22:47→23:56)
[2019-07-10] MEDS ORDERED: IOVERSOL 100ml IV PRN (23:12)
[2019-07-10] MEDS ORDERED: PIPERACILL/TAZOBAC CONSULT ACTIVE PRN (23:57)
[2019-07-11] MEDS ORDERED: PIPERACILLIN/TAZOBACTAM 3.375 GM in DEXTROSE 5% 100 ML IV ONE (00:15)
[2019-07-11] MEDS ORDERED: SODIUM CHLORIDE 0.9% 1000ML 1,000 ML IV SCH (00:30)
[2019-07-11] MEDS ORDERED: MoRPHine SULFATE 2 MG/ML CARP IV STA ×2 (00:31→00:48)
[2019-07-11] MEDS: PANTOprazole 40 MG in SYRINGE 0 ML IV SCH ×3 (00:35→21:58)
--- NOTE | 2019-07-11 00:49 | Surgery Consultation ---
Date of Consultation July 11, 2019 Assessment & Plan (1) Duodenal ulcer perforation: pt is a 73 year-old female who was admitted to hospital for dehydration, last evening pt started have abdominal pain, CT scan - duodenal ulcer perforation, IMP: Duodenal ulcer perforation, Plan, I recommend to do emergent exploratory laparotomy, repair duodenal perforation, D/W benefits, risks and alternatives of the surgery, the risks - infection, bleeding, sepsis, Mi, DVT, , pt understood, she agrees with the surgery, I answered all questions, pre-op antibiotic History of Present Illness Attending Physician: Willam Farias DO History of Present Illness Chief Complaint: Generalized weakness Primary Care Provider: Josemanuel Lee MD Ciarra Barrios is a 73 year old female who presents to the ER after being unable to walk into the [facility] center for her IV fluid treatment for ongoing diarrhea secondary to chemotherapy. She notes her chemotherapy is currently on hold due to this side effect and her weight loss. Today while trying to walk up the stops she sudden felt very weak in her legs and was unable to get any further so sat down and her friend alerted the [facility] center who advised her to call for an ambulance. On prior documentation it was noted she was presyncopal however the patient denies this to me and just reports generalized weakness. She has not been out of the bed since then but feels improved since coming to the ER. With regards to her EKG changes she denies any shortness of breath or chest pain. No claudication, presyncope, syncope or palpitations. I ( Thompson Bains MD ) got a call consult duodenal ulcer perforation, free air in abdomen, I reviewed pt's H/P , labs, CT scan with pt, pt started have abdominal pain this evening. the pain is 7/10, with nausea, no vomiting, pt denies chest pain, no fever. pt had CT scan this evening showed- duodenal ulcer perforation with free air. Allergies Allergy/AdvReac Type Severity Reaction Status Date / Time Sulfa (Sulfonamide Allergy Unknown Rash Verified 07/08/19 15:40 Antibiotics) Hrnmzjq-Kci-Jnc Reductase AdvReac Unknown Muscle Pain Verified 07/08/19 15:40 Inhibitor Home Medications Home Medications Medication Instructions Recorded Confirmed Type [id number] 1 drp OPHTHALMIC (EYE) UD PRN 07/08/19 07/08/19 History [Refresh [employer]] diphenoxylate-atropine [Lomotil] 1 tab PO BID PRN 07/08/19 07/08/19 History levothyroxine 50 mcg PO DAILY 07/08/19 07/08/19 History loratadine [Claritin] 10 mg PO DAILY PRN 07/08/19 07/08/19 History lorazepam [Ativan] 1 mg PO BID 07/08/19 07/08/19 History ondansetron HCl [Zofran] 4 mg PO UD PRN 07/08/19 07/08/19 History scopolamine base [Transderm-Scop] 1 patch TRANSDERMAL .Q3DAYS 07/08/19 07/08/19 History Past Med/Surg History Medical History (Updated 07/08/19 @ 22:01 by Gio Shah MD) Breast cancer, left Constipation Fatty liver High blood pressure High cholesterol Hypothyroidism Lichen sclerosus Rosacea Surgical History (Updated 03/24/19 @ 12:07 by Shira Salinas RN) H/O tooth extraction History of colonoscopy Port-A-Cath in place (03/24/19) Port placement. Dr. Bowling 03/24/19 Social History (Updated 02/28/19 @ 09:43 by Citlalli Bedolla RN) Preferred Language: Barbadian Communication Ability: Effective Financial Investment Manager Required: No Beliefs That Will Affect Care: Rastafarian Rastafarian Beliefs: Baptist marital status: Single Current Living Situation: Alone current occupational status: retired Other Information That Helps Us Care for You: No Feels Safe at Home: No Is there a partner from a previous relationship who is making you feel unsafe now?: No Any Concerns about Your Family Situation: No Would You Like to Speak to Someone About Your Situation: No Safety Concerns: Feels Safe At This Time Smoking Status: Never smoker Hx Alcohol Use: No Hx Substance Use: No Review of Systems Review of Systems: All systems reviewed & are unremarkable except as noted in HPI & below Allergies Allergy/AdvReac Type Severity Reaction Status Date / Time Sulfa (Sulfonamide Allergy Unknown Rash Verified 07/08/19 15:40 Antibiotics) Fqexhwl-Tbk-Ajc Reductase AdvReac Unknown Muscle Pain Verified 07/08/19 15:40 Inhibitor Home Medications Home Medications Medication Instructions Recorded Confirmed Type [id number] 1 drp OPHTHALMIC (EYE) UD PRN 07/08/19 07/08/19 History [Refresh [employer]] diphenoxylate-atropine [Lomotil] 1 tab PO BID PRN 07/08/19 07/08/19 History levothyroxine 50 mcg PO DAILY 07/08/19 07/08/19 History loratadine [Claritin] 10 mg PO DAILY PRN 07/08/19 07/08/19 History lorazepam [Ativan] 1 mg PO BID 07/08/19 07/08/19 History ondansetron HCl [Zofran] 4 mg PO UD PRN 07/08/19 07/08/19 History scopolamine base [Transderm-Scop] 1 patch TRANSDERMAL .Q3DAYS 07/08/19 07/08/19 History Patient History Medical History (Updated 07/11/19 @ 00:51 by Thompson Bains MD) Breast cancer, left Constipation Fatty liver High blood pressure High cholesterol Hypothyroidism Lichen sclerosus Rosacea Surgical History (Updated 03/24/19 @ 12:07 by Shira Salinas RN) H/O tooth extraction History of colonoscopy Port-A-Cath in place (03/24/19) Port placement. Dr. Bowling 03/24/19 Social History (Updated 02/28/19 @ 09:43 by Citlalli Bedolla RN) Preferred Language: Barbadian Communication Ability: Effective Financial Investment Manager Required: No Beliefs That Will Affect Care: Rastafarian Rastafarian Beliefs: Baptist marital status: Single Current Living Situation: Alone current occupational status: retired Other Information That Helps Us Care for You: No Feels Safe at Home: No Is there a partner from a previous relationship who is making you feel unsafe now?: No Any Concerns about Your Family Situation: No Would You Like to Speak to Someone About Your Situation: No Safety Concerns: Feels Safe At This Time Smoking Status: Never smoker Hx Alcohol Use: No Hx Substance Use: No Review of Systems Review of Systems: All systems reviewed & are unremarkable except as noted in HPI & below Constitutional: as per Subjective / HPI Eyes: as per Subjective / HPI Ear, Nose, Mouth, Throat: as per Subjective / HPI Respiratory: as per Subjective / HPI Cardiovascular: as per Subjective / HPI Additional Comments: HTN Gastrointestinal: as per Subjective / HPI diarrhea Genitourinary: as per Subjective / HPI breast cancer, port insertion Musculoskeletal: as per Subjective / HPI Integumentary: as per Subjective / HPI Neurologic: as per Subjective / HPI Psychiatric: as per Subjective / HPI Endocrine: as per Subjective / HPI Hematologic / Lymphatic: as per Subjective / HPI Physical Exam Constitutional: WD/WN, vitals as above + acute distress and + ill appearing Eyes: PERRL, conjunctivae normal, anicteric sclerae ENMT: external ear and nose normal, oropharynx normal Neck: trachea midline, no thyromegaly Respiratory: normal respiratory effort, lungs clear to auscultation Cardiovascular: RRR, no murmur, no edema Rate/Rhythm: regular rate and regular rhythm Heart Sounds: normal S1 and normal S2 Gastrointestinal (Abdomen): Percussion/Palpation: + abdomen tender, + guarding and + abdomen rigid tenderness at whole abdomen, with rebound pain, BS - Musculoskeletal: no cyanosis or clubbing, extremities motor strength 5/5 Skin: no rashes, warm and dry Neurologic: patellar DTR's 2+ bilat, sensation intact Psychiatric: Orientation: alert and oriented x 3 Results & Data Vital Signs (Past 12 Hours) Vital Signs Temp Pulse Pulse Resp BP Pulse Ox 07/10/19 23:00 36.7 C 79 18 152/67 H 99 07/10/19 22:43 36.4 C L 07/10/19 20:00 36.4 C L 65 19 165/76 H 100 07/10/19 16:06 62 07/10/19 15:03 37.1 C 72 20 125/64 92 Laboratory Results Abnormal Labs 07/08/19 07/08/19 07/08/19 15:25 15:25 15:25 RBC 4.05 L Hct 36.5 L RDW Std Deviation 49.7 H RDW Coeff of Rafael 15.0 H Immature Gran # (Auto) 0.18 H Neut # (Auto) 7.61 H [place] # (Auto) 1.24 H D-Dimer 1270 H* Sodium 135 L Potassium 3.1 L Chloride Anion Gap 12.0 H BUN 43 H Creatinine 1.46 H BUN/Creatinine Ratio 29.5 H Glucose 140 H Calcium Magnesium 1.7 L AST 46 H ALT 94 H Total Protein Albumin TSH 6.610 H 07/09/19 07:33 RBC Hct RDW Std Deviation RDW Coeff of Rafael Immature Gran # (Auto) Neut # (Auto) [place] # (Auto) D-Dimer Sodium Potassium 3.3 L Chloride 111 H Anion Gap BUN 29 H Creatinine BUN/Creatinine Ratio 30.4 H Glucose Calcium 8.3 L Magnesium AST ALT Total Protein 5.5 L D Albumin 2.6 L TSH Diagnostic Findings CT scan- duodenal ulcer perforation with free air
--- NOTE | 2019-07-11 00:56 | History & Physical Bridge Note ---
Date of Service July 11, 2019 History & Physical Bridge Note I have examined the patient, reviewed the History & Physical and in the interval since the performance of the History & Physical I have noted the following changes of clinical significance: no changes noted
[2019-07-11] MEDS ORDERED: BACITRACIN OINT 15 GM TUBE ONE (01:10)
[2019-07-11] MEDS ORDERED: BUPIVACAINE 0.5 % 5 MG/1 ML MPF 30ML VIAL ONE (01:10)
[2019-07-11] MEDS ORDERED: LIDOCAINE HCL 1% 20 ML VIAL ONE (01:10)
[2019-07-11] MEDS ORDERED: PROPOFOL IV EMULSION 10 MG/ML 20 ML VIAL IV ONE (01:11)
[2019-07-11] MEDS ORDERED: fentaNYL citrate 100 MCG/2 ML VIAL ONE (01:12)
[2019-07-11] MEDS ORDERED: ROCURONIUM BROMID 50MG/5ML SYR ONE (01:12)
[2019-07-11] MEDS ORDERED: SUCCINYLCHOLINE 100MG/5ML SYR IV ONE (01:15)
--- NOTE | 2019-07-11 01:27 | Anesthesiology Consultation ---
Date of Service July 11, 2019 Assessment & Plan ASA [id number] Proposed Anesthesia Anesthesia Type: General Risk / Benefits Reviewed With: PT / POA / Parent / Guardian, Accepts Plan and Informed Consent Obtained History Surgery Operation Date: 07/11/19 01:15 Proposed Procedures p Exploratory Laparotomy - Thompson Bains MD Height/Weight Height: 5 ft 6 in Weight: 63 kg Allergies Allergy/AdvReac Type Severity Reaction Status Date / Time Sulfa (Sulfonamide Allergy Unknown Rash Verified 07/08/19 15:40 Antibiotics) Tjfdkby-Rht-Csc Reductase AdvReac Unknown Muscle Pain Verified 07/08/19 15:40 Inhibitor Medications Home Medications Medication Instructions Recorded Confirmed Last Taken niyxqaxzxamxamf-[id number] 1 drp OPHTHALMIC (EYE) UD PRN 07/08/19 07/08/19 Unknown [Refresh Optive Advanced] diphenoxylate-atropine [Lomotil] 1 tab PO BID PRN 07/08/19 07/08/19 Unknown levothyroxine 50 mcg PO DAILY 07/08/19 07/08/19 Unknown loratadine [Claritin] 10 mg PO DAILY PRN 07/08/19 07/08/19 Unknown lorazepam [Ativan] 1 mg PO BID 07/08/19 07/08/19 Unknown ondansetron HCl [Zofran] 4 mg PO UD PRN 07/08/19 07/08/19 Unknown scopolamine base [Transderm-Scop] 1 patch TRANSDERMAL .Q3DAYS 07/08/19 07/08/19 Unknown Active Medications Generic Name Dose Route Start Last Admin Trade Name Freq PRN Reason Stop Dose Admin Heparin Sodium (Porcine) 5,000 units 07/08/19 21:00 07/10/19 21:21 Heparin Sodium (Porcine) SQ 08/07/19 20:59 5,000 units Q12 LISSETTE Administration Heparin Sodium (Porcine) 5 ml 07/09/19 23:57 07/10/19 12:19 Heparin Sod 100 Unit/Ml Flush FLUSH 08/08/19 23:44 5 ml PRN PRN Administration Flush Potassium Chloride 40 meq/ 1,020 mls @ 150 mls/hr 07/08/19 20:15 07/11/19 00:57 Sodium Chloride IV 08/07/19 20:14 150 mls/hr .Q6H48M LISSETTE Infusion Ondansetron HCl 8 mg/ Dextrose 54 mls @ 216 mls/hr 07/10/19 10:47 07/10/19 22:31 IV 08/09/19 10:46 Infused Q6H PRN Infusion Nausea Pantoprazole Sodium 40 mg/ 10 mls @ 5 mls/min 07/11/19 00:15 07/11/19 00:35 Syringe IV 08/10/19 00:14 5 mls/min BID LISSETTE Administration Ioversol 100 ml 07/10/19 23:12 07/10/19 23:13 Optiray 320 100ml IV 07/14/19 23:11 94 ml ONCE PRN Administration Interaction Checking Levothyroxine Sodium 50 mcg 07/09/19 06:30 07/10/19 05:17 Synthroid PO 08/08/19 06:29 50 mcg DAILYBB LISSETTE Administration Metoclopramide HCl 10 mg 07/09/19 13:00 07/10/19 19:33 Reglan IV 08/08/19 12:59 10 mg Q6H LISSETTE Administration NPO Date Last Intake of Fluids: 07/10/19 Time Last Intake of Fluids: 11:30 Last Intake of Fluids Comment: sips Date Last Intake of Solids: 07/10/19 Time Last Intake of Solids: 11:30 Last Intake of Solids Comment: a few bites Past Medical History Medical History Breast cancer, left Constipation Fatty liver High blood pressure High cholesterol Hypothyroidism Lichen sclerosus Rosacea Exercise / Class Metabolic Activity II 4-5 Yardwork/Stairs/Walk up hill Past Family History Family History Grandmother Diabetes Mother Cancer Past Surgical History Surgical History H/O tooth extraction History of colonoscopy Port-A-Cath in place (03/24/19) Port placement. Dr. Bowling 03/24/19 Past Anesthesia History No Hx of Anesthesia Complications and No Family Hx of Anesthesia Complications History of PONV No Hx of PONV and No Hx of Motion Sickness Social History Smoking Status: Never smoker Hx Alcohol Use: No Hx Substance Use: No substance use type: does not use Review of Systems denies fever/cough/ colds/ chest pain/ SOB/ DEVIN Constitutional: no fever and no chills Respiratory: no cough and no dyspnea denies DEVIN Cardiovascular: no chest pain and no dyspnea on exertion Physical Exam Vital Signs Last Vital Signs Temp 36.7 C 07/10/19 23:00 Pulse 79 07/10/19 23:00 Resp 18 07/10/19 23:00 BP 152/67 H 07/10/19 23:00 Pulse Ox 99 07/10/19 23:00 ENMT Mouth: + dentition abnormality and + chipped teeth; no TMJ abnormality Thyromental Distance: > or= 3.5 Finger Breadths Mallampati Class: III Neck neck extension not limited Respiratory normal respiratory effort; no respiratory distress Auscultation: lungs clear to auscultation bilaterally Cardiovascular Rate/Rhythm: regular rate and regular rhythm Neurologic moves all extremities Psychiatric Orientation: alert and oriented x 3 Testing Laboratory Results 07/08/19 15:25 07/09/19 07:33 PT 11.3 Seconds (9.0-12.0) 07/08/19 15: INR 1.1 (0.9-1.1) 07/08/19 15:25 APTT 24.2 Seconds (21.0-31.0) 07/08/19 15:25
[2019-07-11 01:34] LABS: Hematocrit (blood only) 35.5 % (37-47); Hemoglobin 11.3 g/dL (12.0-16.0); Mean Corpuscular Hemoglobin 29.9 pg (25-34); Mean Corpuscular Hgb Conc 31.8 g/dL (32-36); Mean Corpuscular Volume 93.9 fL (80-100); Mean Platelet Volume 9.1 fL (7.4-10.4); Nucleated RBC # (auto) 0.02 K/uL (0-0); Nucleated RBC % (auto) 0.1 %; Platelet Count 228 K/uL (130-400); RDW Coefficient of Variation 16.2 % (11.5-14.5); RDW Standard Deviation 55.4 fL (36.4-46.3); Red Blood Count 3.78 M/uL (4.2-5.4); White Blood Count 32.56 K/uL (4.8-10.8)
[2019-07-11] MEDS ORDERED: HYDROmorphone INJ 2 MG/ML SYR/VIAL IV PRN (01:44)
[2019-07-11] MEDS ORDERED: ATROPINE SULFATE 0.1 MG/ML 10ML SYR IV PRN (01:44)
[2019-07-11] MEDS ORDERED: fentaNYL citrate 100 MCG/2 ML VIAL IV PRN (01:44)
[2019-07-11] MEDS ORDERED: ePHEDrine sulfate 50 MG/ML AMP IV PRN (01:44)
[2019-07-11] MEDS ORDERED: ONDANSETRON INJ 2 MG/ML 2 ML VIAL IV PRN (01:44)
[2019-07-11] MEDS: METOCLOPRAMIDE HCL INJ 5 MG/ML 2 ML VIAL IV SCH (01:46)
[2019-07-11 01:49] LABS: ALC (manual) 4.53 K/uL (1.2-3.4); ANC (manual) 27.48 K/uL (1.4-6.5); Dohle Bodies 1+; Echinocytes 1+; Lymphocytes # (manual) 4.53 K/uL (1.2-3.4); Lymphocytes % (manual) 13.9 %; Monocytes # (manual) 0.55 K/uL (0.11-0.59); Monocytes % (manual) 1.7 %; Neutrophils # (manual) 27.48 K/uL (1.4-6.5); Neutrophils % (manual) 84.4 %; Toxic Granulation 1+
[2019-07-11] MEDS ORDERED: HYDROmorphone INJ 2 MG/ML SYR/VIAL ONE (02:22)
[2019-07-11] MEDS ORDERED: MIDAZOLAM HCL 1 MG/ML 2ML VIAL ONE (02:59)
--- NOTE | 2019-07-11 03:23 | Post Operative Brief Note ---
Immediate Post Op Note v1 Date of Surgery July 11, 2019 Pre & Post Diagnosis Operation Date: 07/11/19 01:15 Pre-Op Diagnosis: Duodenal ulcer perforation Post-Op Diagnosis: Duodenal ulcer perforation I identified the patient and participated in the time-out.: Yes Procedure Operation Date: 07/11/19 01:15 Actual Procedures p Emergent Exploratory Laparotomy, Repair of perforated duodenal ulcer(Not Applicable) - Thompson Bains MD Surgeon Thompson Bains MD Cancellation Clerk surgical assistant certified Estimated Blood Loss 10 Findings Consistent with Post-Op Diagnosis duodenal ulcer perforation Fluids 1500ml Specimens none Drains Ivy Catheter (16 fr ivy catheter inserted by staff without issues and draining clear yellow urine) and Nirav-Melchor Drain (10 fr flat) Anesthesia Type General Complications none Disposition Accompanied Patient To Recovery: Yes Disposition: Surgical ICU Overlapping Procedure I was immediately available: during the entire case.
--- NOTE | 2019-07-11 04:09 | Anesthesiology Progress Note ---
Date of Service July 11, 2019 Anesthesia Post Procedure Vital Signs Vital Signs: Temp Pulse Pulse Resp BP Pulse Ox 07/10/19 23:30 68 07/10/19 23:00 36.7 C 79 18 152/67 H 99 07/10/19 22:43 36.4 C L 07/10/19 20:00 36.4 C L 65 19 165/76 H 100 07/10/19 16:06 62 07/10/19 15:03 37.1 C 72 20 125/64 92 07/10/19 11:10 36.7 C 59 L 20 144/64 H 98 07/10/19 07:46 36.7 C 62 20 138/74 98 07/10/19 07:24 74 Transfer of Care Handoff Completed per policy Notes Mental Status: see notes below (pt sedated) Patient Amnestic to Procedure: Yes Nausea / Vomiting: adequately controlled Pain: adequately controlled Airway Patency, RR, SpO2: see Notes below (on ventilator) BP & HR: stable & adequate Hydration State: stable & adequate Anesthetic Complications: no major complications apparent and Pt Satisfied with anesthetic care
[2019-07-11] MEDS ORDERED: HYDROmorphone INJ 1 MG/ML SYRINGE IV PRN (04:28)
[2019-07-11] MEDS ORDERED: MIDAZOLAM HCL 1 MG/ML 2ML VIAL IV PRN (04:31)
[2019-07-11] MEDS ORDERED: FENTANYL BOLUS FROM BAG IV PRN (04:31)
[2019-07-11] MEDS ORDERED: STAT IV Infusion **Titration per Protocol STA (04:31)
[2019-07-11] MEDS ORDERED: ICU PROTOCOL FOR HYPERGLYCEMIA PRN (04:31)
[2019-07-11 04:35] LABS: iSTAT Allen Test Pass; iSTAT Arterial Blood Gas HCO3 17 meg/L (19-24); iSTAT Arterial Blood Gas pCO2 38 mmHg (35-46); iSTAT Arterial Blood Gas pH 7.25 (7.35-7.45); iSTAT Arterial Blood Gas pO2 168 mmHg (80-95); iSTAT Carbon Dioxide 18 mmol/L (24-31); iSTAT FiO2 50 %; iSTAT Site R Radial
--- NOTE | 2019-07-11 04:35 | Critical Care Consultation ---
Date of Consultation July 11, 2019 Assessment & Plan (1) Admitted to intensive care unit: Reason Critically Ill: 73-year-old female with perforated duodenal ulcer status post exploratory laparotomy requiring close hemodynamic monitoring and ventilatory support status post extensive surgical intervention. NEURO - * CAM ICU: Unable to assess secondary to level sedation. * Pain medication: Fentanyl drip * Sedation: PRN Versed CARDIAC/VASCULAR - * Abnormal EKG: * Patient with inferior/lateral ST depressions on presentation. * No apparent complaints of chest pain. * Negative troponins to this point. * EKG: NSR@93bpm. ST depressions in inferior/lateral leads * Monitor on telemetry. RESPIRATORY - * Respiratory failure: * Likely in the setting of anesthesia secondary to significant surgical intervention. * Minimal ventilator settings at this point. * Check ABG and wean settings as tolerated. * Plan for early extubation. GI/NUTRITION - * Perforated duodenal ulcer status post exploratory laparotomy: * Continue with twice daily PPI. * NG tube to low intermittent suction. * Appreciate general surgery recommendations. * Continue to cover with broad-spectrum antibiotics * Prophylaxis: Protonix twice daily RENAL/LYTES - * Hypokalemia: * Repeat electrolytes. Replace as needed. * Dehydration: * Clinically dehydrated in the setting of profound vomiting and recent intense surgical intervention. * IVF: D5W & 1/2NSS with 20 mEq potassium chloride at 100 mL's per hour. - * Acosta in place - Strict I&Os. ENDO - * No h/o DM * BSGs per unit protocol. ISS --> gtt per unit policy. * Hypothyroidism: * Continue home dosing of levothyroxine. * Consider starting w/ IV dosing if she is to be NPO for an extended period of time. HEME - * Breast Cancer: * Recently receiving chemotherapy. * Stopped 2/2 side effects. * Leukocytosis: * Multifactorial in the setting of perforated duodenal ulcer, metabolic stresses, and intense vomiting. * Stable H&H: * Will trend H&H s/p surgical intervention. ID - * Perforated Duodenal Ulcer: * Agree with broad-spectrum coverage. * Zosyn alone for now. * Check PCT/Lactate. * Consider Blood Cx's if febrile. LINES/IV ACCESS - * PIVs x1 * A-port * Acosta * ET Tube DVT PROPHYLAXIS - * Heparin sq * SCDs I have personally spent 45 minutes of critical care time in the direct management of this patient. This is a life/limb threatening event. This includes time spent evaluating patient, direct bedside care, chart review, placing orders, interpretation of diagnostic studies, discussion with consultants, patient, and family members, as well as other required patient management activities. This time is exclusive of all separately billable procedures, and teaching time and separate from and in addition to any other critical care service time. Thank you for allowing us to participate in the care of this patient. Please refer to my attending physician's documentation for any further recommendations. (2) S/P exploratory laparotomy: (3) Duodenal ulcer perforation: (4) Dehydration: (5) Hypokalemia: (6) Nausea: (7) Severe protein-calorie malnutrition: (8) Weakness: (9) Breast cancer, left: (10) Hypothyroidism: (11) High cholesterol: (12) High blood pressure: (13) Breast cancer: History of Present Illness Attending Physician: Willam Farias DO History of Present Illness Patient is a 73-year-old female with a significant past medical history of hypertension, hyperlipidemia, hypothyroidism, and recent diagnosis of breast cancer. She was recently undergoing chemotherapy treatments, however they were discontinued as the patient was becoming increasingly protein calorie malnourished. She was admitted this facility with dehydration and intense vomiting. Last evening, the patient developed intense abdominal pain. CT of the abdomen pelvis demonstrated perforated duodenal ulcer. Decision was made to take the patient to the operating suite for exploratory laparotomy with surgical intervention. Patient had an otherwise uneventful operative course, however she failed initial weaning trial. She was brought to the ICU for ongoing ventilatory management. Patient unable to contribute to history of present illness secondary to current state of sedation with intubation. Allergies Allergy/AdvReac Type Severity Reaction Status Date / Time Sulfa (Sulfonamide Allergy Unknown Rash Verified 07/08/19 15:40 Antibiotics) Kchbthn-Dvd-Fhh Reductase AdvReac Unknown Muscle Pain Verified 07/08/19 15:40 Inhibitor Home Medications Home Medications Medication Instructions Recorded Confirmed Type adqzcjzyrfwqwlg-[id number] 1 drp OPHTHALMIC (EYE) UD PRN 07/08/19 07/08/19 History [Refresh Optive Advanced] diphenoxylate-atropine [Lomotil] 1 tab PO BID PRN 07/08/19 07/08/19 History levothyroxine 50 mcg PO DAILY 07/08/19 07/08/19 History loratadine [Claritin] 10 mg PO DAILY PRN 07/08/19 07/08/19 History lorazepam [Ativan] 1 mg PO BID 07/08/19 07/08/19 History ondansetron HCl [Zofran] 4 mg PO UD PRN 07/08/19 07/08/19 History scopolamine base [Transderm-Scop] 1 patch TRANSDERMAL .Q3DAYS 07/08/19 07/08/19 History Patient History Medical History Breast cancer, left Constipation Fatty liver High blood pressure High cholesterol Hypothyroidism Lichen sclerosus Rosacea Surgical History H/O tooth extraction History of colonoscopy Port-A-Cath in place (03/24/19) Port placement. Dr. Bowling 03/24/19 Family History Grandmother Diabetes Mother Cancer Social History Preferred Language: Togolese Communication Ability: Effective Solderer Required: No Beliefs That Will Affect Care: Mu-Ism Mu-Ism Beliefs: Holiness marital status: Single Current Living Situation: Alone current occupational status: retired Other Information That Helps Us Care for You: No Feels Safe at Home: No Is there a partner from a previous relationship who is making you feel unsafe now?: No Any Concerns about Your Family Situation: No Would You Like to Speak to Someone About Your Situation: No Safety Concerns: Feels Safe At This Time Smoking Status: Never smoker Hx Alcohol Use: No Hx Substance Use: No Review of Systems Review of Systems: Unobtainable due to endotracheal tube Physical Exam Physical Exam: VITAL SIGNS - Vital signs and nursing notes were reviewed. GENERAL - 73-year-old female appearing her stated age who is in no acute distress. Intubated and sedated. SKIN - Without rashes. HEAD - NC/AT. EYES - PERRL with EOMI bilaterally. Sclera anicteric. EARS - No deformities of external structures noted on gross examination bilaterally. NOSE - Midline and without cyanosis. No epistaxis or purulent drainage noted. MOUTH/OROPHARYNX - ET Tube in place. Without perioral cyanosis. Buccal mucosa pink and moist and without leukoplakia. NECK - Neck with FROM. Supple to palpation. No nuchal rigidity. LUNGS - Chest wall symmetric without accessory muscle use, intercostals retractions, or central cyanosis. Normal vesicular breath sounds CTA B/L. No wheezes, rales, or rhonchi appreciated. CARDIAC - RRR with S1/S2. No murmur, rubs, or gallops appreciated. ABDOMEN - postoperative incision site clean, dry, and intact. ANDREW drain with pinkish serosanguineous discharge. Abdominal contour flat without pulsations or visible masses. BS hypoactive all four quadrants. EXTREMITIES - No clubbing or peripheral cyanosis. No pretibial edema present. +3/5 radial and dorsalis pedis pulses palpated throughout. NEUROLOGIC - Cranial nerves II through XII grossly intact. Moves all 4 extremities independently. Results & Data Results & Data ([facility]) Vital Signs (Past 12 Hours) Vital Signs Temp Pulse Pulse Resp BP BP Pulse Ox 07/11/19 04:00 99 H 12 188/117 H 100 07/11/19 03:56 91 H 17 178/89 H 100 07/11/19 03:55 94 H 18 100 07/11/19 03:50 93 H 16 177/87 H 99 07/11/19 03:45 90 16 142/75 H 07/11/19 03:44 100 07/10/19 23:30 68 07/10/19 23:00 36.7 C 79 18 152/67 H 99 07/10/19 22:43 36.4 C L 07/10/19 20:00 36.4 C L 65 19 165/76 H 100 Coding Level of Care Code Critical Care 1st 30-74 mins Diagnoses Admitted to intensive care unit Z78.9 S/P exploratory laparotomy Z98.890 Duodenal ulcer perforation K26.5 Dehydration E86.0 Hypokalemia E87.6 Nausea R11.0 Severe protein-calorie malnutrition E43 Weakness R53.1 Breast cancer, left C50.912 Hypothyroidism E03.9 High cholesterol E78.00 High blood pressure I10 Breast cancer C50.919 Breast location: unspecified site of breast Estrogen receptor status: unspecified Laterality: unspecified laterality Patient sex: female Time Spent (min) 45 (1) Breast cancer Breast location: unspecified site of breast Estrogen receptor status: unspecified Laterality: unspecified laterality Patient sex: female Qualified Code(s): C50.919 - Malignant neoplasm of unspecified site of unspecified female breast
[2019-07-11] MEDS ORDERED: fentaNYL DRIP 1,250 MCG/250 ML BAG IV SCH (04:45)
--- NOTE | 2019-07-11 04:52 | Operative Report (OR) ---
DATE OF OPERATION: 07/11/2019 PREOPERATIVE DIAGNOSIS: Duodenal ulcer perforation, sepsis. POSTOPERATIVE DIAGNOSIS: Duodenal ulcer perforation, sepsis. OPERATION: Emergency exploratory laparotomy, repair of duodenal ulcer perforation. SURGEON: Thompson Bains MD. ANESTHESIA: General. ESTIMATED BLOOD LOSS: About 10 mL. FINDINGS: Duodenal ulcer perforation, peritonitis. COMPLICATIONS: None. INDICATIONS FOR THE PROCEDURE: This is a 73-year-old female who was admitted to hospital for dehydration; however, last night, the patient developed acute abdominal pain. The patient had a CT scan diagnosis of perforated duodenal ulcer, free air. So I recommended to do emergency exploratory laparotomy, repair of duodenal ulcer perforation. I did talk to the patient about the benefits, the risks, alternate procedures. I indicated the risks may include but not limited such as bleeding, infection, sepsis, myocardial infarction, DVT, stroke, even . The patient understands. She signed informed consent and I answered all questions. DETAILS OF THE PROCEDURE: We brought in the patient to the OR, put the patient in the supine position. The patient received SCDs on bilateral legs to prevent DVT. Also, the patient received 3.375 grams of Zosyn IV for prophylactic antibiotic. The patient received general anesthesia without difficulty. Then patient received Acosta catheter insertion. The abdomen was prepped and draped in routine sterile fashion. After timeout, I made an upper midline incision about 15 cm long and got into the abdomen without difficulty. There was some yellow flow around the stomach, duodenal area, we suctioned it out. Then we also found the patient had a duodenal ulcer perforation, the perforation size about 0.5 x 0.5 cm. Once we suctioned all the flow and we checked the liver; liver shows normal finding, no mass on the liver. Then I used 2-0 Vicryl to close the duodenal ulcer perforation interruptedly with omental fat pad. Rechecked, no leak. Then we used normal saline and flushed the whole abdomen and suctioned normal saline out. Then we put one 10 mm ANDREW drainage, using 3-0 nylon fixed the ANDREW on the skin. Hemostasis was obtained. Then I closed the fascial layer incision by using #1 PDS continuous running, closed subcutaneous layer by using 2-0 Vicryl continuous running, closed skin by using staple. Then we put the dressing on. The patient tolerated the procedure well. All the instrument, needle, and sponge counts were correct x2 at the end of the case. The patient transferred to ICU in stable condition. I attest to the content of the Intraoperative Record and any orders documented therein. Any exception s are noted below.
[2019-07-11] MEDS: PIPERACILLIN/TAZOBACTAM 3.375 GM in DEXTROSE 5% 100 ML IV SCH ×3 (04:57→21:58)
[2019-07-11] MEDS: D5W AND 1/2NSS + 20MEQ KCL 20 MEQ/1,000 ML BAG IV SCH ×2 (04:57→15:33)
[2019-07-11] MEDS: LEVOTHYROXINE SODIUM 50 MCG TABLET PO SCH (04:57)
[2019-07-11] MEDS ORDERED: ONDANSETRON 4 MG OD TAB PO PRN (04:58)
[2019-07-11] MEDS ORDERED: SCOPOLAMINE 1.5 MG TDSY TD SCH (05:00)
[2019-07-11 05:13] LABS: Hematocrit (blood only) 35.5 % (37-47); Hemoglobin 11.4 g/dL (12.0-16.0); Mean Corpuscular Hemoglobin 30.1 pg (25-34); Mean Corpuscular Hgb Conc 32.1 g/dL (32-36); Mean Corpuscular Volume 93.7 fL (80-100); Mean Platelet Volume 9.5 fL (7.4-10.4); Platelet Count 218 K/uL (130-400); RDW Coefficient of Variation 16.2 % (11.5-14.5); RDW Standard Deviation 55.6 fL (36.4-46.3); Red Blood Count 3.79 M/uL (4.2-5.4); White Blood Count 29.66 K/uL (4.8-10.8)
[2019-07-11 05:42] LABS: Albumin Globulin Ratio 0.9 (0.9-2); Albumin Level 2.5 gm/dl (3.4-5.0); BUN Creatinine Ratio 19.8 (10-20); Bilirubin,Total 0.6 mg/dl (0.2-1); Est GFR (African American) 100.8; Globulin 2.8 gm/dl (2.5-4.0); Magnesium 1.2 mg/dl (1.8-2.4); Phosphorus 3.8 mg/dl (2.5-4.9); Potassium 4.3 mmol/L (3.5-5.1); Total Protein 5.3 gm/dl (6.4-8.2); Troponin I 0.085 ng/ml (0-0.045)
[2019-07-11 06:03] LABS: ALC (manual) 1.81 K/uL (1.2-3.4); ANC (manual) 26.81 K/uL (1.4-6.5); Dohle Bodies 2+; Echinocytes 1+; Lymphocytes # (manual) 1.81 K/uL (1.2-3.4); Lymphocytes % (manual) 6.1 %; Monocytes # (manual) 0.77 K/uL (0.11-0.59); Monocytes % (manual) 2.6 %; Myelocytes # (manual) 0.27 K/uL (0-0); Myelocytes % (manual) 0.9 %; Neutrophils # (manual) 26.81 K/uL (1.4-6.5); Neutrophils % (manual) 90.4 %; Toxic Granulation 1+
[2019-07-11] MEDS: MAGNESIUM SULFATE / D5W 1 GM/100 ML BAG IV SCH ×2 (06:12→08:06)
[2019-07-11] MEDS: POTASSIUM CHLORIDE 40 MEQ in SODIUM CHLORIDE 0.9% 1000ML 1,000 ML IV SCH (06:49)
--- NOTE | 2019-07-11 07:08 | CT Scan Report ---
CT OF THE ABDOMEN AND PELVIS WITH CONTRAST CLINICAL HISTORY: Worsening abdominal pain and diffuse tenderness. COMPARISON STUDY: Right upper quadrant ultrasound June 13, 2017. PET/CT February 24, 2019. TECHNIQUE: Following IV administration of 94 mL of Optiray-320, axial images of the abdomen and pelvi s were obtained from the lung bases to the proximal femurs. Images were reviewed in the axial, sagitt al, and coronal planes. IV contrast was administered without complication. Automated exposure contro l was utilized for the study. A dose lowering technique was utilized adhering to the principles of A JOANNE. CT DOSE: 360.77 mGy.cm FINDINGS: Moderate pneumoperitoneum is noted. Ascites is also present. Duodenal wall thickening with adjacent infiltration is noted. Suspected duodenal ulcer is present. There is wall thickening of the gallbladder. Gallbladder is mildly distended. The spleen, adrenal glands and pancreas are unremarkabl e. Innumerable bilateral renal lesions are noted. The majority of these measure water attenuation ref lect cysts. Many are too small to characterize. A few hyperdense lesions likely reflect hyperdense cy sts within correlating with PET/CT of February 24, 2019. There is no hydronephrosis. There is no evide nce for a bowel obstruction. Colon is mildly fluid-filled. The appendix is normal. Trace fluid within the pelvis is noted. There are no suspicious osseous lesions.] Diverticulosis is noted without evide nce for acute diverticulitis. No abdominal or pelvic lymphadenopathy is present. IMPRESSION: 1. Moderate pneumoperitoneum. Duodenal wall thickening with suspected duodenal ulcer. The findings rivera ggest a perforated duodenal ulcer. 2. Moderate gallbladder wall thickening. Although nonspecific, this is probably reactive. 3. Mildly fluid-filled colon. No bowel obstruction. ACT 112: Negative or not required by law. Electronically signed by: Juan Olguin M.D. 07/11/2019 7:06 AM
[2019-07-11 07:52] LABS: Appearance Urine Clear (Clear); Bacteria Urine Automated Negative (Negative); Bilirubin Urine Negative (Negative); Blood Urine Trace (Negative); Color Urine Yellow; Glucose Urine UA Trace (Negative); Ketones Urine 1+ (Negative); Leukocyte Esterase Urine Negative (Negative); Nitrite Urine Negative (Negative); Protein Urine Negative (Negative); RBC Urine Automated 0-4 /hpf (0-4); Specific Gravity Urine > 1.045 (1.000-1.030); Urobilinogen Urine Negative (Negative)
[2019-07-11] MEDS ORDERED: CHECK SCOPOLAMINE PATCH PLACEMENT SCH (08:00)
[2019-07-11] MEDS ORDERED: LORazepam 1 MG TAB PO SCH (09:00)
--- NOTE | 2019-07-11 10:51 | Communication Note ---
Date of Service: July 11, 2019 Was called by nurse due to some pain in her upper right quadrant of her abdomen after a particularly violent episode of emesis. Pain was mild at that time and she felt like it might be improving. Called back about thirty minutes later and abdomen appeared more rigid and globally tender. Obtained CT abdomen Pelvis that revealed free air and a likely perforated duodenal ulcer. Stat consulted General Surgery Dr. Bains who came to assess the patient. Decision was made to take patient to surgery tonight to repair perforation. Have started patient on zosyn, Fluids at 150 mls/hour, protonix IV 40 mg. Patient hemodynamically stable at present morphine for pain.
--- NOTE | 2019-07-11 11:27 | Surgery Progress Note ---
Date of Service F/U S/P repair duodenal ulcer perforation, POD 1, pt is doing better, less abdominal pain, no nausea, no vomiting, ANDREW 160ml, July 11, 2019 Assessment & Plan (1) Duodenal ulcer perforation: pt is a 73 year-old female who was admitted to hospital for dehydration, last evening pt started have abdominal pain, CT scan - duodenal ulcer perforation, IMP: Duodenal ulcer perforation, Plan, I recommend to do emergent exploratory laparotomy, repair duodenal perforation, D/W benefits, risks and alternatives of the surgery, the risks - infection, bleeding, sepsis, Mi, DVT, , pt understood, she agrees with the surgery, I answered all questions, pre-op antibiotic 07/11/2019 11:30AM POD 1, S/P repair duodenal ulcer perforation, continue treatment, update or finding, pt understood, I answered all questions, cardiology nurse practitioner surgeon cover the weekend, thanks, Subjective ongoing nausea and vomiting, cannot keep anything down no improvement with Zofran and Reglan sent for MRI brain -- no evidence of brain mets patient frustrated, cannot keep anything down she does not feel well enough to go to rehab today, I agree no labs today Review of Systems Constitutional: as per Subjective / HPI Eyes: as per Subjective / HPI Ear, Nose, Mouth, Throat: as per Subjective / HPI Respiratory: as per Subjective / HPI Cardiovascular: as per Subjective / HPI Additional Comments: HTN Gastrointestinal: as per Subjective / HPI diarrhea Genitourinary: as per Subjective / HPI breast cancer, port insertion Musculoskeletal: as per Subjective / HPI Integumentary: as per Subjective / HPI Neurologic: as per Subjective / HPI Psychiatric: as per Subjective / HPI Endocrine: as per Subjective / HPI Hematologic / Lymphatic: as per Subjective / HPI Physical Exam Constitutional: WD/WN, vitals as above Eyes: PERRL, conjunctivae normal, anicteric sclerae ENMT: external ear and nose normal, oropharynx normal Neck: trachea midline, no thyromegaly Respiratory: normal respiratory effort, lungs clear to auscultation Cardiovascular: RRR, no murmur, no edema Rate/Rhythm: regular rate and regular rhythm Heart Sounds: normal S1 and normal S2 Gastrointestinal (Abdomen): Percussion/Palpation: + abdomen tender soft, mild tenderness at incision site, BS +no distend, incision intact, Musculoskeletal: no cyanosis or clubbing, extremities motor strength 5/5 Skin: no rashes, warm and dry Neurologic: patellar DTR's 2+ bilat, sensation intact Psychiatric: Orientation: alert and oriented x 3 Results & Data Vital Signs (Past 12 Hours) Vital Signs Temp Pulse Resp BP Pulse Ox Pulse Ox 07/11/19 10:16 72 132/61 100 07/11/19 09:16 71 117/63 99 07/11/19 08:16 71 116/55 L 100 07/11/19 08:00 75 07/11/19 07:22 74 17 100 07/11/19 07:16 37.2 C 71 118/59 L 100 07/11/19 06:00 75 129/67 99 07/11/19 05:30 80 148/88 H 99 07/11/19 05:00 79 132/61 99 07/11/19 04:31 99 07/11/19 04:30 81 146/72 H 98 07/11/19 04:15 83 174/82 H 99 07/11/19 04:06 36.4 C L 90 168/107 H 99 07/11/19 04:02 86 20 99 07/11/19 04:00 99 H 12 188/117 H 100 07/11/19 03:56 91 H 17 178/89 H 100 07/11/19 03:55 94 H 18 100 07/11/19 03:50 93 H 16 177/87 H 99 07/11/19 03:45 90 16 142/75 H 07/11/19 03:44 100 07/10/19 23:30 68 Laboratory Results Abnormal lab results 07/11/19 07/11/19 07/11/19 Range/Units 01:11 04:12 04:25 WBC 32.56 H* (4.8-10.8) K/uL RBC 3.78 L (4.2-5.4) M/uL Hgb 11.3 L (12.0-16.0) g/dL Hct 35.5 L (37-47) % MCHC 31.8 L (32-36) g/dL RDW Std Deviation 55.4 H (36.4-46.3) fL RDW Coeff of Rafael 16.2 H (11.5-14.5) % Absolute Nucleated RBC 0.02 H (0-0) K/uL Neutrophils # (Manual) 27.48 H (1.4-6.5) K/uL Total Absolute Neuts 27.48 H (1.4-6.5) K/uL Lymphocytes # (Manual) 4.53 H (1.2-3.4) K/uL Total Abs Lymphocytes 4.53 H (1.2-3.4) K/uL Monocytes # (Manual) (0.11-0.59) K/uL Myelocytes # (Manual) (0-0) K/uL POC pH 7.25 L (7.35-7.45) POC pO2 168 H (80-95) mmHg POC HCO3 17 L (19-24) esdras/L POC Total CO2 18 L (24-31) mmol/L POC Base Excess -11.0 L (-9-1.8) esdras/L POC ABG O2 Sat 99.0 H (90-95) % Chloride (98-107) mmol/L Carbon Dioxide (21-32) mmol/L Glucose (70-99) mg/dl POC Glucose 116 H (70-99) mg/dl Calcium (8.5-10.1) mg/dl Magnesium (1.8-2.4) mg/dl Troponin I (0-0.045) ng/ml Total Protein (6.4-8.2) gm/dl Albumin (3.4-5.0) gm/dl Procalcitonin (0-0.5) ng/ml Ur Specific [place] (1.000-1.030) Urine Glucose (UA) (Negative) Urine Ketones (Negative) Urine Blood (Negative) U Epithel Cells (Auto) (0-5) /lpf 07/11/19 07/11/19 07/11/19 Range/Units 05:02 05:02 05:02 WBC 29.66 H (4.8-10.8) K/uL RBC 3.79 L (4.2-5.4) M/uL Hgb 11.4 L (12.0-16.0) g/dL Hct 35.5 L (37-47) % MCHC (32-36) g/dL RDW Std Deviation 55.6 H (36.4-46.3) fL RDW Coeff of Rafael 16.2 H (11.5-14.5) % Absolute Nucleated RBC (0-0) K/uL Neutrophils # (Manual) 26.81 H (1.4-6.5) K/uL Total Absolute Neuts 26.81 H (1.4-6.5) K/uL Lymphocytes # (Manual) (1.2-3.4) K/uL Total Abs Lymphocytes (1.2-3.4) K/uL Monocytes # (Manual) 0.77 H (0.11-0.59) K/uL Myelocytes # (Manual) 0.27 H (0-0) K/uL POC pH (7.35-7.45) POC pO2 (80-95) mmHg POC HCO3 (19-24) esdras/L POC Total CO2 (24-31) mmol/L POC Base Excess (-9-1.8) esdras/L POC ABG O2 Sat (90-95) % Chloride 114 H (98-107) mmol/L Carbon Dioxide 19 L (21-32) mmol/L Glucose 136 H (70-99) mg/dl POC Glucose (70-99) mg/dl Calcium 8.0 L (8.5-10.1) mg/dl Magnesium 1.2 L (1.8-2.4) mg/dl Troponin I 0.085 H* (0-0.045) ng/ml Total Protein 5.3 L (6.4-8.2) gm/dl Albumin 2.5 L (3.4-5.0) gm/dl Procalcitonin 0.53 H (0-0.5) ng/ml Ur Specific [place] (1.000-1.030) Urine Glucose (UA) (Negative) Urine Ketones (Negative) Urine Blood (Negative) U Epithel Cells (Auto) (0-5) /lpf 07/11/19 07/11/19 Range/Units 07:15 09:57 WBC (4.8-10.8) K/uL RBC (4.2-5.4) M/uL Hgb (12.0-16.0) g/dL Hct (37-47) % MCHC (32-36) g/dL RDW Std Deviation (36.4-46.3) fL RDW Coeff of Rafael (11.5-14.5) % Absolute Nucleated RBC (0-0) K/uL Neutrophils # (Manual) (1.4-6.5) K/uL Total Absolute Neuts (1.4-6.5) K/uL Lymphocytes # (Manual) (1.2-3.4) K/uL Total Abs Lymphocytes (1.2-3.4) K/uL Monocytes # (Manual) (0.11-0.59) K/uL Myelocytes # (Manual) (0-0) K/uL POC pH (7.35-7.45) POC pO2 (80-95) mmHg POC HCO3 (19-24) esdras/L POC Total CO2 (24-31) mmol/L POC Base Excess (-9-1.8) esdras/L POC ABG O2 Sat (90-95) % Chloride (98-107) mmol/L Carbon Dioxide (21-32) mmol/L Glucose (70-99) mg/dl POC Glucose (70-99) mg/dl Calcium (8.5-10.1) mg/dl Magnesium (1.8-2.4) mg/dl Troponin I 0.078 H* (0-0.045) ng/ml Total Protein (6.4-8.2) gm/dl Albumin (3.4-5.0) gm/dl Procalcitonin (0-0.5) ng/ml Ur Specific [place] > 1.045 H (1.000-1.030) Urine Glucose (UA) Trace H (Negative) Urine Ketones 1+ H (Negative) Urine Blood Trace H (Negative) U Epithel Cells (Auto) 10-20 H (0-5) /lpf
--- NOTE | 2019-07-11 14:57 | Hospitalist Progress Note ---
Date of Service July 11, 2019 Assessment & Plan (1) Duodenal ulcer perforation: emergent exploratory lap with duodenal ulcer oversew NG tube in place, low intermittent suction NPO per surgery incision C/D/I, drain in place Zosyn IV, Protonix 40mg IV BID likely had an ulcer for some time, causing her ongoing nausea and vomiting will transfer to surgical floor, post op management per Dr. Bains (2) Weakness: Generalized suspected secondary to severe protein-calorie malnutrition and dehydration from diarrhea. participating in therapy start Reglan to try to help with nausea/vomiting -- no improvement CM making referral to [facility] for rehab will now be here until next week recovering from surgery plan for rehab once medically stable (3) Hypomagnesemia: replace IV (4) JODI (acute kidney injury): Cr elevated at time of admission, due to dehydration resolved with IV fluids, electrolytes stable (5) Abnormal ECG: ST changes without chest pain or shortness of breath no elevation in troponin no further work up at this time (6) Diarrhea: C diff negative can use Lomotil PRN but not keeping anything down watch for return of bowel function once she is eating (7) Anisocoria: Left mydriasis suspect secondary to scopolamine patch improved (8) Breast cancer, left: taking a break from chemotherapy due to reduced weight and malnourished state patient says she wants quality of life over quantity right now she has no quality with her nausea discussed palliative care consult, will wait for time being, confirms she is DNR, DNI (9) Severe protein-calorie malnutrition: Boost ordered Dietary consult now NPO after surgery (10) Nausea: Suspect related to chemotherapy but no longer on it since May now suspect it could have been due to duodenal ulcer (11) Hypokalemia: resolved with IV fluids (12) Dehydration: resolving with IV fluids, continue another 24 hours, reduce rate (13) DVT prophylaxis: Heparin 5000 units BID Admission and Anticipated Discharge Date Admission Date: July 10, 2019 Subjective patient developed severe epigastric pain in the middle of the night, WBC up to 30k sent for CT of the abdomen/pelvis, showed free air, perforated duodenal ulcer general surgery consulted, took patient for exploratory lap, oversew of the ulcer tolerated surgery well, remained intubated in the ICU until this morning, successful spontaneous breathing trial and extubated saw patient this morning, admits to some mild epigastric pain but overall much better breathing well, no fever/chills reviewed labs, WBC 29k, Hb 11, HCO3 19, Cr 0.69, magnesium 1.[address] Crespo, will move to surgical floor d/w Dr. Bains, appreciate his recommendations Review of Systems Review of Systems: All systems reviewed & are unremarkable except as noted in HPI & below Respiratory: no cough and no dyspnea Cardiovascular: no chest pain and no edema Gastrointestinal: + abdominal pain (mild, epigastric); no nausea, no vomiting, no constipation and no diarrhea/loose stools Physical Exam Constitutional: well developed and + thin; no acute distress Eyes: PERRL, conjunctivae normal, anicteric sclerae ENMT: external ear and nose normal, oropharynx normal (NG tube in place) Neck: trachea midline, no thyromegaly Respiratory: normal respiratory effort, lungs clear to auscultation Cardiovascular: RRR, no murmur, no edema Gastrointestinal (Abdomen): Inspection/Auscultation: + abdominal surgical incision, + abdominal surgical drain present and + hypoactive bowel sounds; abdomen not distended Percussion/Palpation: + abdomen tender and abdomen soft Musculoskeletal: no cyanosis or clubbing, extremities motor strength 5/5 Skin: no rashes, warm and dry Neurologic: patellar DTR's 2+ bilat, sensation intact and PERRL, EOMI, accommodation nl, no face palsy, no dysarthria Psychiatric: A+Ox3, euthymic affect Lymphatic: no cervical or axillary lymphadenopathy Results & Data Results & Data ([facility]) Vital Signs (Past 12 Hours) Vital Signs Temp Pulse Pulse Resp BP BP Pulse Ox 07/11/19 14:23 36.4 C L 73 16 131/76 98 07/11/19 12:16 36.6 C 74 125/61 99 07/11/19 12:00 81 07/11/19 11:16 71 124/65 99 07/11/19 10:16 72 132/61 100 07/11/19 09:16 71 117/63 99 07/11/19 08:16 71 116/55 L 100 07/11/19 08:00 75 07/11/19 07:22 74 17 100 07/11/19 07:16 37.2 C 71 118/59 L 100 07/11/19 06:00 75 129/67 99 07/11/19 05:30 80 148/88 H 99 07/11/19 05:00 79 132/61 99 07/11/19 04:31 07/11/19 04:30 81 146/72 H 98 07/11/19 04:15 83 174/82 H 99 07/11/19 04:06 36.4 C L 90 168/107 H 99 07/11/19 04:02 86 20 99 07/11/19 04:00 99 H 12 188/117 H 100 07/11/19 03:56 91 H 17 178/89 H 100 07/11/19 03:55 94 H 18 100 07/11/19 03:50 93 H 16 177/87 H 99 07/11/19 03:45 90 16 142/75 H 07/11/19 03:44 100 Pulse Ox 07/11/19 14:23 07/11/19 12:16 07/11/19 12:00 07/11/19 11:16 07/11/19 10:16 07/11/19 09:16 07/11/19 08:16 07/11/19 08:00 07/11/19 07:22 07/11/19 07:16 07/11/19 06:00 07/11/19 05:30 07/11/19 05:00 07/11/19 04:31 99 07/11/19 04:30 07/11/19 04:15 07/11/19 04:06 07/11/19 04:02 07/11/19 04:00 07/11/19 03:56 07/11/19 03:55 07/11/19 03:50 07/11/19 03:45 07/11/19 03:44 Laboratory Results Laboratory Results - last 24 hr 07/11/19 07/11/19 07/11/19 01:11 01:11 04:12 WBC 32.56 H* RBC 3.78 L Hgb 11.3 L Hct 35.5 L MCV 93.9 MCH 29.9 MCHC 31.8 L RDW Std Deviation 55.4 H RDW Coeff of Rafael 16.2 H Plt Count 228 MPV 9.1 Absolute Nucleated RBC 0.02 H Nucleated RBC % (auto) 0.1 Neutrophils % (Manual) 84.4 Lymphocytes % (Manual) 13.9 Monocytes % (Manual) 1.7 Myelocytes % (Man) Neutrophils # (Manual) 27.48 H Total Absolute Neuts 27.48 H Lymphocytes # (Manual) 4.53 H Total Abs Lymphocytes 4.53 H Monocytes # (Manual) 0.55 Myelocytes # (Manual) Toxic Granulation 1+ Dohle Bodies 1+ Echinocytes 1+ Sample Site R Radial POC pH 7.25 L POC pCO2 38 POC pO2 168 H POC HCO3 17 L POC Total CO2 18 L POC Base Excess -11.0 L POC ABG O2 Sat 99.0 H Archie Test Pass O2 Delivery Device Ventilator POC O2 Rate 16 POC FiO2 50 Tidal Volume 350 PEEP 5 Sodium Potassium Chloride Carbon Dioxide Anion Gap BUN Creatinine Est Cr Clr Drug Dosing Est GFR ( Amer) Est GFR (Non-Af Amer) BUN/Creatinine Ratio Glucose POC Glucose Lactate Calcium Phosphorus Magnesium Total Bilirubin AST ALT Alkaline Phosphatase Troponin I Total Protein Albumin Globulin Albumin/Globulin Ratio Procalcitonin Random Cortisol Urine Color Urine Appearance Urine pH Ur Specific [place] Urine Protein Urine Glucose (UA) Urine Ketones Urine Blood Urine Nitrite Urine Bilirubin Urine Urobilinogen Ur Leukocyte Esterase Urine WBC (Auto) Urine RBC (Auto) U Hyaline Cast (Auto) U Epithel Cells (Auto) Urine Bacteria (Auto) Nasal Screen MRSA (PCR) Blood Type A Positive Antibody Screen NEGATIVE 07/11/19 07/11/19 07/11/19 04:25 05:02 05:02 WBC 29.66 H RBC 3.79 L Hgb 11.4 L Hct 35.5 L MCV 93.7 MCH 30.1 MCHC 32.1 RDW Std Deviation 55.6 H RDW Coeff of Rafael 16.2 H Plt Count 218 MPV 9.5 Absolute Nucleated RBC Nucleated RBC % (auto) Neutrophils % (Manual) 90.4 Lymphocytes % (Manual) 6.1 Monocytes % (Manual) 2.6 Myelocytes % (Man) 0.9 Neutrophils # (Manual) 26.81 H Total Absolute Neuts 26.81 H Lymphocytes # (Manual) 1.81 Total Abs Lymphocytes 1.81 Monocytes # (Manual) 0.77 H Myelocytes # (Manual) 0.27 H Toxic Granulation 1+ Dohle Bodies 2+ Echinocytes 1+ Sample Site POC pH POC pCO2 POC pO2 POC HCO3 POC Total CO2 POC Base Excess POC ABG O2 Sat Archie Test O2 Delivery Device POC O2 Rate POC FiO2 Tidal Volume PEEP Sodium 141 Potassium 4.3 D Chloride 114 H Carbon Dioxide 19 L Anion Gap 8.0 BUN 14 D Creatinine 0.69 Est Cr Clr Drug Dosing 69.0 Est GFR ( Amer) 100.8 Est GFR (Non-Af Amer) 87.0 BUN/Creatinine Ratio 19.8 Glucose 136 H POC Glucose 116 H Lactate Calcium 8.0 L Phosphorus 3.8 D Magnesium 1.2 L Total Bilirubin 0.6 AST 21 ALT 50 Alkaline Phosphatase 117 Troponin I 0.085 H* Total Protein 5.3 L Albumin 2.5 L Globulin 2.8 Albumin/Globulin Ratio 0.9 Procalcitonin Random Cortisol Urine Color Urine Appearance Urine pH Ur Specific [place] Urine Protein Urine Glucose (UA) Urine Ketones Urine Blood Urine Nitrite Urine Bilirubin Urine Urobilinogen Ur Leukocyte Esterase Urine WBC (Auto) Urine RBC (Auto) U Hyaline Cast (Auto) U Epithel Cells (Auto) Urine Bacteria (Auto) Nasal Screen MRSA (PCR) Blood Type Antibody Screen 07/11/19 07/11/19 07/11/19 05:02 05:02 05:02 WBC RBC Hgb Hct MCV MCH MCHC RDW Std Deviation RDW Coeff of Rafael Plt Count MPV Absolute Nucleated RBC Nucleated RBC % (auto) Neutrophils % (Manual) Lymphocytes % (Manual) Monocytes % (Manual) Myelocytes % (Man) Neutrophils # (Manual) Total Absolute Neuts Lymphocytes # (Manual) Total Abs Lymphocytes Monocytes # (Manual) Myelocytes # (Manual) Toxic Granulation Dohle Bodies Echinocytes Sample Site POC pH POC pCO2 POC pO2 POC HCO3 POC Total CO2 POC Base Excess POC ABG O2 Sat Archie Test O2 Delivery Device POC O2 Rate POC FiO2 Tidal Volume PEEP Sodium Potassium Chloride Carbon Dioxide Anion Gap BUN Creatinine Est Cr Clr Drug Dosing Est GFR ( Amer) Est GFR (Non-Af Amer) BUN/Creatinine Ratio Glucose POC Glucose Lactate 1.0 Calcium Phosphorus Magnesium Total Bilirubin AST ALT Alkaline Phosphatase Troponin I Total Protein Albumin Globulin Albumin/Globulin Ratio Procalcitonin 0.53 H Random Cortisol 30.09 Urine Color Urine Appearance Urine pH Ur Specific [place] Urine Protein Urine Glucose (UA) Urine Ketones Urine Blood Urine Nitrite Urine Bilirubin Urine Urobilinogen Ur Leukocyte Esterase Urine WBC (Auto) Urine RBC (Auto) U Hyaline Cast (Auto) U Epithel Cells (Auto) Urine Bacteria (Auto) Nasal Screen MRSA (PCR) Blood Type Antibody Screen 07/11/19 07/11/19 07/11/19 05:30 07:15 09:57 WBC RBC Hgb Hct MCV MCH MCHC RDW Std Deviation RDW Coeff of Rafael Plt Count MPV Absolute Nucleated RBC Nucleated RBC % (auto) Neutrophils % (Manual) Lymphocytes % (Manual) Monocytes % (Manual) Myelocytes % (Man) Neutrophils # (Manual) Total Absolute Neuts Lymphocytes # (Manual) Total Abs Lymphocytes Monocytes # (Manual) Myelocytes # (Manual) Toxic Granulation Dohle Bodies Echinocytes Sample Site POC pH POC pCO2 POC pO2 POC HCO3 POC Total CO2 POC Base Excess POC ABG O2 Sat Archie Test O2 Delivery Device POC O2 Rate POC FiO2 Tidal Volume PEEP Sodium Potassium Chloride Carbon Dioxide Anion Gap BUN Creatinine Est Cr Clr Drug Dosing Est GFR ( Amer) Est GFR (Non-Af Amer) BUN/Creatinine Ratio Glucose POC Glucose Lactate Calcium Phosphorus Magnesium Total Bilirubin AST ALT Alkaline Phosphatase Troponin I 0.078 H* Total Protein Albumin Globulin Albumin/Globulin Ratio Procalcitonin Random Cortisol Urine Color Yellow Urine Appearance Clear Urine pH 5.0 Ur Specific [place] > 1.045 H Urine Protein Negative Urine Glucose (UA) Trace H Urine Ketones 1+ H Urine Blood Trace H Urine Nitrite Negative Urine Bilirubin Negative Urine Urobilinogen Negative Ur Leukocyte Esterase Negative Urine WBC (Auto) 1-5 Urine RBC (Auto) 0-4 U Hyaline Cast (Auto) 1-5 U Epithel Cells (Auto) 10-20 H Urine Bacteria (Auto) Negative Nasal Screen MRSA (PCR) Negative Blood Type Antibody Screen Medications Administered Current Inpatient Medications Acetaminophen (Tylenol) 650 mg PO Q4H PRN PRN Reason: Pain or Fever Stop: 08/07/19 21:01 Artificial Tears (Artificial Tears) 1 drops OP PRN PRN PRN Reason: DRY EYES Stop: 08/07/19 19:59 Diphenoxylate HCl/Atropine (Lomotil) 1 tab PO Q6H PRN PRN Reason: Diarrhea Stop: 08/07/19 19:54 Heparin Sodium (Porcine) (Heparin Sod 100 Unit/Ml Flush) 5 ml FLUSH PRN PRN PRN Reason: Flush Stop: 08/08/19 23:44 Last Admin: 07/10/19 12:19 Dose: 5 ml Documented by: Hydromorphone HCl (Dilaudid) 1 mg IV Q3H PRN PRN Reason: Pain Stop: 07/25/19 04:27 Ondansetron HCl 8 mg/ Dextrose 54 mls @ 216 mls/hr IV Q6H PRN PRN Reason: Nausea Stop: 08/09/19 10:46 Last Infusion: 07/10/19 22:31 Dose: Infused Documented by: Piperacillin Sod/Tazobactam (Sod 3.375 gm/ Dextrose) 115 mls @ 30 mls/hr IV Q8H [facility]; Protocol Stop: 07/21/19 05:59 Last Infusion: 07/11/19 08:49 Dose: Infused Documented by: Pantoprazole Sodium 40 mg/ (Syringe) 10 mls @ 5 mls/min IV BID [place] Stop: 08/10/19 00:14 Last Admin: 07/11/19 10:25 Dose: 5 mls/min Documented by: Potassium Chloride/Dextrose/Sod Cl (D5w And 1/2nss + 20meq Kcl) 20 meq in 1,000 mls @ 100 mls/hr IV .Q10H [place] Stop: 08/10/19 04:27 Last Admin: 07/11/19 04:57 Dose: 100 mls/hr Documented by: Levothyroxine Sodium (Synthroid) 50 mcg PO DAILYBB [facility] Stop: 08/08/19 06:29 Last Admin: 07/11/19 04:57 Dose: Not Given Documented by: Loratadine (Claritin) 10 mg PO DAILY PRN PRN Reason: ALLERGIES Stop: 08/07/19 19:54 Lorazepam (Ativan) 0.5 mg PO Q12H PRN PRN Reason: Anxiety Stop: 08/07/19 21:22 Lorazepam (Ativan) 1 mg PO BID [facility] Stop: 08/10/19 08:59 Last Admin: 07/11/19 10:03 Dose: Not Given Documented by: Miscellaneous Information (Consult) 1 ea N/A UD PRN PRN Reason: Consult Stop: 08/09/19 23:56 Ondansetron HCl (Zofran Odt) 4 mg PO Q6H PRN PRN Reason: Nausea And Vomiting Stop: 08/10/19 04:57 PG Care Time/CCT Total # of Minutes Spent Total Time Spent with Patient: Total time spent is greater than 50% in coordination of care (as documented) at patient's floor/unit and/or counseling patient: Coding Level of Care Code 32896 Subseq Hosp Care Lvl 3 Diagnoses Duodenal ulcer perforation K26.5 Weakness R53.1 Hypomagnesemia E83.42 JODI (acute kidney injury) N17.9 Abnormal ECG R94.31 Diarrhea R19.7 Diarrhea type: unspecified type Anisocoria H57.02 Breast cancer, left C50.912 Severe protein-calorie malnutrition E43 Nausea R11.0 Hypokalemia E87.6 Dehydration E86.0 DVT prophylaxis Z29.9 (1) Diarrhea Diarrhea type: unspecified type Qualified Code(s): R19.7 - Diarrhea, unspecified
[2019-07-11] MEDS ORDERED: ACETAMINOPHEN 1,000 MG/100 ML VIAL IV PRN (15:09)
[2019-07-11] MEDS ORDERED: LORazepam 0.5 MG/1 ML VIAL IV SCH (21:00)
[2019-07-12] MEDS: D5W AND 1/2NSS + 20MEQ KCL 20 MEQ/1,000 ML BAG IV SCH ×3 (01:05→20:56)
[2019-07-12] MEDS: PIPERACILLIN/TAZOBACTAM 3.375 GM in DEXTROSE 5% 100 ML IV SCH ×3 (05:22→22:40)
[2019-07-12] MEDS: LEVOTHYROXINE SODIUM 50 MCG TABLET PO SCH ×2 (05:28→05:31)
[2019-07-12 06:27] LABS: Basophils # (auto) 0.02 K/uL (0-0.2); Basophils % (auto) 0.1 %; Eosinophils # (auto) 0.01 K/uL (0-0.5); Hematocrit (blood only) 29.3 % (37-47); Hemoglobin 9.5 g/dL (12.0-16.0); Immature Granulocytes # (auto) 0.14 K/uL (0.00-0.02); Immature Granulocytes % (auto) 0.7 %; Lymphocytes # (auto) 3.15 K/uL (1.2-3.4); Lymphocytes % (auto) 15.1 %; Mean Corpuscular Hemoglobin 29.7 pg (25-34); Mean Corpuscular Hgb Conc 32.4 g/dL (32-36); Mean Corpuscular Volume 91.6 fL (80-100); Mean Platelet Volume 9.7 fL (7.4-10.4); Monocytes # (auto) 1.01 K/uL (0.11-0.59); Monocytes % (auto) 4.8 %; Neutrophils # (auto) 16.55 K/uL (1.4-6.5); Neutrophils % (auto) 79.3 %; Platelet Count 211 K/uL (130-400); RDW Coefficient of Variation 16.1 % (11.5-14.5); RDW Standard Deviation 54.2 fL (36.4-46.3); White Blood Count 20.88 K/uL (4.8-10.8)
[2019-07-12 07:07] LABS: BUN Creatinine Ratio 12.3 (10-20); Calcium 7.8 mg/dl (8.5-10.1); Creatinine Clr Calc Pharmacy 59.5 ml/min; Est GFR (African American) 85.4; Est GFR (Non-African American) 73.7; Magnesium 1.7 mg/dl (1.8-2.4)
[2019-07-12] MEDS: PANTOprazole 40 MG in SYRINGE 0 ML IV SCH ×2 (08:39→22:36)
--- NOTE | 2019-07-12 10:02 | Surgery Progress Note ---
Date of Service July 12, 2019 Assessment & Plan (1) Duodenal ulcer perforation: pod 2 doing as expected OOB today will await Dr. Bains to decide on UGI sunday or not prior to pulling NGT and starting clears. Subjective pt seen. doing ok. surgical pain improving. Physical Exam Physical Exam: alert. oriented. abd: soft. expected incsional tenderness. wound clean/dry Results & Data Vital Signs (Past 12 Hours) Vital Signs Temp Pulse Resp BP Pulse Ox 07/12/19 07:01 36.6 C 74 16 132/66 97 07/11/19 23:23 36.7 C 76 18 148/80 H 97 PG Care Time/CCT Total # of Minutes Spent Total Time Spent with Patient: Total time spent is greater than 50% in coordination of care (as documented) at patient's floor/unit and/or counseling patient: Coding Level of Care Code None Diagnoses Duodenal ulcer perforation K26.5
[2019-07-12] MEDS: MAGNESIUM SULFATE / D5W 1 GM/100 ML BAG IV SCH ×2 (11:24→13:09)
--- NOTE | 2019-07-12 15:17 | Hospitalist Progress Note ---
Date of Service July 12, 2019 Assessment & Plan (1) Duodenal ulcer perforation: emergent exploratory lap with duodenal ulcer oversew NG tube in place, low intermittent suction NPO per surgery, consider clears on Sunday incision C/D/I, drain in place Zosyn IV, Protonix 40mg IV BID likely had an ulcer for some time, causing her ongoing nausea and vomiting WBC down to 20k from 30k Hb down to 9.5 from 11.4, represents acute blood loss anemia due to surgery repeat labs tomorrow overall doing really well (2) Weakness: Generalized suspected secondary to severe protein-calorie malnutrition and dehydration from diarrhea. participating in therapy CM making referral to [facility] for rehab will now be here until next week recovering from surgery plan for rehab once medically stable (3) Hypomagnesemia: replace IV (4) JODI (acute kidney injury): Cr elevated at time of admission, due to dehydration resolved with IV fluids, electrolytes stable (5) Abnormal ECG: ST changes without chest pain or shortness of breath no elevation in troponin no further work up at this time (6) Diarrhea: C diff negative can use Lomotil PRN but not keeping anything down watch for return of bowel function once she is eating (7) Anisocoria: Left mydriasis suspect secondary to scopolamine patch improved (8) Breast cancer, left: taking a break from chemotherapy due to reduced weight and malnourished state patient says she wants quality of life over quantity right now she has no quality with her nausea discussed palliative care consult, will wait for time being, confirms she is DNR, DNI certainly now that she will be recovering from surgery would not anticipate any chemotherapy (9) Severe protein-calorie malnutrition: Boost ordered Dietary consult now NPO after surgery (10) Nausea: Suspect related to chemotherapy but no longer on it since May now suspect it could have been due to duodenal ulcer, she never c/o pain (11) Hypokalemia: resolved with IV fluids (12) Dehydration: resolved with IV fluids (13) DVT prophylaxis: Heparin 5000 units BID Admission and Anticipated Discharge Date Admission Date: July 10, 2019 Subjective patient sitting up in a chair this morning, doing much better pain is controlled, no nausea, NGT hooked up to suction general surgery plans for NPO this weekend, consider upper GI series Sunday, advance to clears at that time reviewed labs, WBC down to 20k, Hb down to 9.5 from 11.4, BMP stable patient denies chest pain, dyspnea, fever/chills she gets teary eyed thanking me for all the care everyone has given her Review of Systems Review of Systems: All systems reviewed & are unremarkable except as noted in HPI & below Respiratory: no cough and no dyspnea Cardiovascular: no chest pain and no edema Gastrointestinal: + abdominal pain (RUQ, epigastric) and + constipation; no nausea and no vomiting Physical Exam Constitutional: well developed and + thin; no acute distress Eyes: PERRL, conjunctivae normal, anicteric sclerae ENMT: external ear and nose normal, oropharynx normal (NG tube in place) Neck: trachea midline, no thyromegaly Respiratory: normal respiratory effort, lungs clear to auscultation Cardiovascular: RRR, no murmur, no edema Gastrointestinal (Abdomen): normal bowel sounds, soft, nontender, no hepatosplenomegaly Inspection/Auscultation: + abdominal surgical incision, + abdominal surgical drain present and + hypoactive bowel sounds; abdomen not distended Percussion/Palpation: + abdomen tender and abdomen soft Musculoskeletal: no cyanosis or clubbing, extremities motor strength 5/5 Skin: no rashes, warm and dry Neurologic: patellar DTR's 2+ bilat, sensation intact and PERRL, EOMI, acc ommodation nl, no face palsy, no dysarthria Psychiatric: A+Ox3, euthymic affect Lymphatic: no cervical or axillary lymphadenopathy Results & Data Results & Data ([facility]) Vital Signs (Past 12 Hours) Vital Signs Temp Pulse Resp BP Pulse Ox 07/12/19 14:44 36.7 C 74 16 132/97 97 07/12/19 07:01 36.6 C 74 16 132/66 97 Laboratory Results Laboratory Results - last 24 hr 07/12/19 07/12/19 05:19 05:19 WBC 20.88 H RBC 3.20 L Hgb 9.5 L Hct 29.3 L MCV 91.6 MCH 29.7 MCHC 32.4 RDW Std Deviation 54.2 H RDW Coeff of Rafael 16.1 H Plt Count 211 MPV 9.7 Immature Gran % (Auto) 0.7 Neut % (Auto) 79.3 Lymph % (Auto) 15.1 [place] % (Auto) 4.8 Eos % (Auto) 0.0 Baso % (Auto) 0.1 Immature Gran # (Auto) 0.14 H Neut # (Auto) 16.55 H Lymph # (Auto) 3.15 [place] # (Auto) 1.01 H Eos # (Auto) 0.01 Baso # (Auto) 0.02 Sodium 137 Potassium 4.0 Chloride 107 Carbon Dioxide 24 Anion Gap 6.0 BUN 10 Creatinine 0.80 Est Cr Clr Drug Dosing 59.5 Est GFR ( Amer) 85.4 Est GFR (Non-Af Amer) 73.7 BUN/Creatinine Ratio 12.3 Glucose 116 H Calcium 7.8 L Magnesium 1.7 L Medications Administered Current Inpatient Medications Acetaminophen (Tylenol) 650 mg PO Q4H PRN PRN Reason: Pain or Fever Stop: 08/07/19 21:01 Artificial Tears (Artificial Tears) 1 drops OP PRN PRN PRN Reason: DRY EYES Stop: 08/07/19 19:59 Diphenoxylate HCl/Atropine (Lomotil) 1 tab PO Q6H PRN PRN Reason: Diarrhea Stop: 08/07/19 19:54 Heparin Sodium (Porcine) (Heparin Sod 100 Unit/Ml Flush) 5 ml FLUSH PRN PRN PRN Reason: Flush Stop: 08/08/19 23:44 Last Admin: 07/10/19 12:19 Dose: 5 ml Documented by: Hydromorphone HCl (Dilaudid) 1 mg IV Q3H PRN PRN Reason: Pain Stop: 07/25/19 04:27 Last Admin: 07/12/19 03:15 Dose: 1 mg Documented by: Ondansetron HCl 8 mg/ Dextrose 54 mls @ 216 mls/hr IV Q6H PRN PRN Reason: Nausea Stop: 08/09/19 10:46 Last Infusion: 07/10/19 22:31 Dose: Infused Documented by: Piperacillin Sod/Tazobactam (Sod 3.375 gm/ Dextrose) 115 mls @ 30 mls/hr IV Q8H [facility]; Protocol Stop: 07/21/19 05:59 Last Admin: 07/12/19 13:09 Dose: 30 mls/hr Documented by: Pantoprazole Sodium 40 mg/ (Syringe) 10 mls @ 5 mls/min IV BID [facility] Stop: 08/10/19 00:14 Last Admin: 07/12/19 08:39 Dose: 5 mls/min Documented by: Potassium Chloride/Dextrose/Sod Cl (D5w And 1/2nss + 20meq Kcl) 20 meq in 1,000 mls @ 100 mls/hr IV .Q10H [facility] Stop: 08/10/19 04:27 Last Admin: 07/12/19 10:54 Dose: 100 mls/hr Documented by: Acetaminophen (Ofirmev) 1,000 mg in 100 mls @ 400 mls/hr IV Q8H PRN PRN Reason: Pain or Fever Stop: 07/14/19 15:08 Magnesium Sulfate/Dextrose (Magnesium Sulfate / D5w) 1 gm in 100 mls @ 50 mls/hr IV Q2H [facility] Stop: 07/12/19 15:29 Last Admin: 07/12/19 13:09 Dose: 50 mls/hr Documented by: Levothyroxine Sodium (Synthroid) 50 mcg PO DAILYBB [facility] Stop: 08/08/19 06:29 Last Admin: 07/12/19 05:31 Dose: Not Given Documented by: Loratadine (Claritin) 10 mg PO DAILY PRN PRN Reason: ALLERGIES Stop: 08/07/19 19:54 Lorazepam (Ativan) 0.5 mg PO Q12H PRN PRN Reason: Anxiety Stop: 08/07/19 21:22 Lorazepam (Ativan) 1 mg PO BID [facility] Stop: 08/10/19 08:59 Last Admin: 07/11/19 10:03 Dose: Not Given Documented by: Miscellaneous Information (Consult) 1 ea N/A UD PRN PRN Reason: Consult Stop: 08/09/19 23:56 Ondansetron HCl (Zofran Odt) 4 mg PO Q6H PRN PRN Reason: Nausea And Vomiting Stop: 08/10/19 04:57 PG Care Time/CCT Total # of Minutes Spent Total Time Spent with Patient: Total time spent is greater than 50% in coordination of care (as documented) at patient's floor/unit and/or counseling patient: Coding Level of Care Code 62334 Subseq Hosp Care Lvl 2 Diagnoses Duodenal ulcer perforation K26.5 Weakness R53.1 Hypomagnesemia E83.42 JODI (acute kidney injury) N17.9 Abnormal ECG R94.31 Diarrhea R19.7 Diarrhea type: unspecified type Anisocoria H57.02 Breast cancer, left C50.912 Severe protein-calorie malnutrition E43 Nausea R11.0 Hypokalemia E87.6 Dehydration E86.0 DVT prophylaxis Z29.9 (1) Diarrhea Diarrhea type: unspecified type Qualified Code(s): R19.7 - Diarrhea, unspecified
[2019-07-13] MEDS: LEVOTHYROXINE SODIUM 50 MCG TABLET PO SCH (05:01)
[2019-07-13] MEDS: PIPERACILLIN/TAZOBACTAM 3.375 GM in DEXTROSE 5% 100 ML IV SCH ×2 (05:16→13:35)
[2019-07-13] MEDS: D5W AND 1/2NSS + 20MEQ KCL 20 MEQ/1,000 ML BAG IV SCH (05:28)
[2019-07-13 06:08] LABS: Basophils # (auto) 0.02 K/uL (0-0.2); Basophils % (auto) 0.1 %; Eosinophils # (auto) 0.01 K/uL (0-0.5); Eosinophils % (auto) 0.1 %; Hematocrit (blood only) 28.5 % (37-47); Hemoglobin 9.4 g/dL (12.0-16.0); Immature Granulocytes # (auto) 0.12 K/uL (0.00-0.02); Immature Granulocytes % (auto) 0.7 %; Lymphocytes # (auto) 2.28 K/uL (1.2-3.4); Lymphocytes % (auto) 12.8 %; Mean Corpuscular Volume 91.1 fL (80-100); Mean Platelet Volume 9.4 fL (7.4-10.4); Monocytes # (auto) 0.66 K/uL (0.11-0.59); Monocytes % (auto) 3.7 %; Neutrophils % (auto) 82.6 %; Platelet Count 205 K/uL (130-400); RDW Standard Deviation 53.2 fL (36.4-46.3); Red Blood Count 3.13 M/uL (4.2-5.4); White Blood Count 17.79 K/uL (4.8-10.8)
[2019-07-13 06:38] LABS: Calcium 8.1 mg/dl (8.5-10.1); Creatinine Clr Calc Pharmacy 58.8 ml/min; Est GFR (African American) 84.1; Est GFR (Non-African American) 72.6; Magnesium 1.9 mg/dl (1.8-2.4); Potassium 3.8 mmol/L (3.5-5.1)
[2019-07-13] MEDS: PANTOprazole 40 MG in SYRINGE 0 ML IV SCH ×2 (08:22→22:18)
--- NOTE | 2019-07-13 10:15 | Family Medicine Progress Note ---
Date of Service July 13, 2019 Assessment & Plan (1) Duodenal ulcer perforation: Duodenal ulcer perforation: - POD 3 s/p emergent exploratory lap with duodenal ulcer oversew. - NG tube in place, low intermittent suction. - NPO per surgery, consider removing NGT and advancing diet to clears on Sunday. - TPN to initiate today by pharmacy at 4pm for a total of ~1200 calories. - continue Zosyn IV, Protonix 40mg IV BID. - patient reports a long history of vomiting and occasional discomfort which suggests ulcer has been present for quite some time. - WBC continue to downtrend, today 17.8 from 20.9 yesterday. - Hb stable at 9.4, down overall from 11.4, liekly represents acute blood loss anemia due to surgery. Weakness: - Generalized suspected secondary to severe protein-calorie malnutrition and dehydration from diarrhea, as well as recent surgery. - Continues to work with physical therapy and today feels more able to walk with assistance. - For rehab likely following discharge, referral to [facility]. Severe protein-calorie malnutrition: - NPO following surgery. - Once able will continue Boost, dietary consult. - TPN as above until can tolerate PO intake. JODI (acute kidney injury): - Cr elevated at time of admission, likely 2/2 dehydration. - resolved with IV fluids, electrolytes stable. Abnormal ECG: - ST changes without chest pain or shortness of breath on admission. - no elevation in troponin. - no further work up at this time. Hypomagnesemia: - improved after Mg 1 gram IV. - will continue to replete as necessary. Diarrhea: - C diff negative on admission. - no diarrhea at this time, small BM today. - will continue to watch as patient resumes diet. Anisocoria: - left mydriasis noted on admission, suspected to be secondary to scopolamine patch which was discontinued. - resolved, not noted on my exam today. Breast cancer, left: - taking a break from chemotherapy due to reduced weight and malnourished state. - per prior record by Dr. Farias, patient says she wants quality of life over quantity, feels much better after surgery due to no vomiting, improving abdominal pain. Hypokalemia: - resolved with NSS with KCl 20meq. Dehydration: - resolved with IV fluids Code Status: DNR/DNI FEN/GI: NPO, NGT in place, NSS @ 100mL/hr with KCl 20meq; to be replaced with TPN at 4pm DVT ppx: Heparin 5000u SQ q12 Dispo: Med/Surg, for possible NGT tube removal tomorrow (2) S/P exploratory laparotomy: (3) JODI (acute kidney injury): (4) Hypomagnesemia: (5) Dehydration: (6) Hypokalemia: (7) Hypothyroidism: (8) Severe protein-calorie malnutrition: (9) Anisocoria: (10) Breast cancer, left: (11) High blood pressure: (12) High cholesterol: Admission and Anticipated Discharge Date Admission Date: July 10, 2019 Supervising Physician Co-Signing Physician Notes I personally examined the patient and verified all reyes points of history and exam, discussed case, and agree with decision making with Dr Blackwell. feeling good overall pain reasonably controlled. discussed risk/benefits of TPN. vitals noted nad heent nc at mmm breathing unlabored no accessory muscles good effort skin no rashes no pallor or icterus perforated ulcer - stable post op severe protein calorie malnutrition - since not clear how soon she'll be able to eat, and she appears behind nutritionally - and understands risk/benefit - will start TPN until PO intake is able to improve to meeting her needs/close to meeting her needs otherwise as above Subjective Without acute events overnight. Some abdominal pain at incision site, but otherwise no abdominal pain. No nausea or vomiting, no fevers or chills, no diarrhea. Reports passing of gas and a minimal amount of stool this AM. Still with catheter in place. No CP or SOB. Review of Systems Constitutional: no fever, no chills and no malaise Respiratory: no cough, no dyspnea and no wheezing Cardiovascular: no chest pain, no palpitations and no edema Gastrointestinal: + abdominal pain (incisional); no nausea, no vomiting, no constipation and no diarrhea/loose stools Genitourinary: no hematuria has urinary catheter Physical Exam Constitutional: WD/WN, vitals as above Respiratory: normal respiratory effort, lungs clear to auscultation Cardiovascular: RRR, no murmur, no edema Gastrointestinal (Abdomen): normal bowel sounds, soft, nontender, no hepatosplenomegaly incisional site clean, dry, intact Skin: no rashes, warm and dry Psychiatric: A+Ox3, euthymic affect Results & Data ([facility]) Vital Signs (Past 12 Hours) Vital Signs Temp Pulse Resp BP Pulse Ox 07/13/19 07:30 36.8 C 82 18 127/60 96 07/12/19 23:10 36.8 C 75 20 140/64 95 Resident Activity Tracking Resident Involvement: Resident Care Provided Care Provided: Adult Hospital Medicine
--- NOTE | 2019-07-13 10:41 | Surgery Progress Note ---
Date of Service July 13, 2019 Assessment & Plan (1) Duodenal ulcer perforation: continues to do well/improve will defer to Dr. Bains regarding ? UGI prior to pulling NGT and begin feedings pain control adequate Subjective pt seen. doing well pain improving. Physical Exam Physical Exam: alert. nad abd: soft. expected incisional tenderness. wound looks good/dry/no erythema Results & Data Vital Signs (Past 12 Hours) Vital Signs Temp Pulse Resp BP Pulse Ox 07/13/19 07:30 36.8 C 82 18 127/60 96 07/12/19 23:10 36.8 C 75 20 140/64 95 PG Care Time/CCT Total # of Minutes Spent Total Time Spent with Patient: Total time spent is greater than 50% in coordination of care (as documented) at patient's floor/unit and/or counseling patient: Coding Level of Care Code None Diagnoses Duodenal ulcer perforation K26.5
[2019-07-13] MEDS ORDERED: TPN/PPN CONSULT PHARMACY STA (11:30)
[2019-07-13] MEDS ORDERED: DEXTROSE 10% 1,000 ML IV PRN (11:31)
[2019-07-13] MEDS ORDERED: TPN/PPN CONSULT PHARMACY PRN (11:32)
--- NOTE | 2019-07-13 11:54 | Pharmacy Report ---
Pharmacy PN Initial Consult - Date of Service July 13, 2019 - Scope Pharmacy has been consulted to manage parenteral nutrition orders and order appropriate labs. As part of the Nutrition Support Team guidelines, pharmacy will work in conjunction with dietary when determining the patients caloric needs. - Subjective The patient is a 73 year old F admitted on 07/10/19 10:45 for WEAKNESS. Patient is to receive parenteral nutrition for prolonged malnutrition. Pertinent PMH: malnutrition, recent chemotherapy - Objective Height: 5 ft 6 in Weight: 66.1 kg Diet: NPO Vascular Access:: central Intake & Output (Last 24Hrs): Intake & Output 07/11/19 07/12/19 07/13/19 07/14/19 06:59 06:59 06:59 06:59 Intake Total 2213.333 / 2213.333 2483.333 / 2483.333 3365.500 / 3365.500 115 / 115 Output Total 490 / 490 1855 / 1855 3806 / 3806 Balance 1723.333 / 1723.333 628.333 / 628.333 -440.500 / -440.500 95 / 95 Weight 66.1 kg 66.1 kg Laboratory Data (Last 24 Hrs):: 07/13/19 05:22 Sodium 138 Potassium 3.8 Chloride 107 Carbon Dioxide 25 BUN 6 L Creatinine 0.81 Glucose 103 H Calcium 8.1 L Magnesium 1.9 Nutrition Assessment:: Please refer to the Notes section of the EMR for the most recent application designer note. - Assessment Ms Ciarra Barrios is a 73 y/o F with a PMH of breast cancer on chemotherapy. Patient currently has been NPO for several days after a perforated duodenal ulcer s/p repair. - Plan For day 1 of PN administration, the following will be ordered: Macronutrients Amino acids 60 grams/day Dextrose 160 grams/day (previously receiving 120 grams in D51/2NS + 20 KCL @ 100 mL/hr x 2 days) Lipids 50 grams/day Micronutrients Combined electrolytes 40 mL - contains 35 mEq Na, 20 meq K, 4.5 mEq Ca, 5 mEq Mg, 35 mEq Cl, 29.5 mEq acetate per 20 mL Sodium phosphate 0 MMol Sodium chloride 30 mEq Sodium acetate 0 mEq Potassium phosphate 21 mMol Potassium chloride 0 mEq Potassium acetate 0 mEq Magnesium sulfate 0 mEq Calcium gluconate 0 mEq Multivitamins 10 mL Trace Elements 10 mL Additional additives: Total volume 1150 mL to be infused over 24 hrs will provide 1284 kcal/day Labs to be ordered per PN order protocol Pharmacy will follow and adjust parenteral nutrition orders on a daily basis. Thank you.
--- NOTE | 2019-07-13 13:54 | Billing Data ---
Date of Service July 13, 2019 Coding Level of Care Code 41899 Subseq Hosp Care Lvl 3
[2019-07-13] MEDS: CENTRAL PN IV SCH (16:13)
[2019-07-13] MEDS: TPN IV SCH (16:13)
[2019-07-13] MEDS ORDERED: HEPARIN SOD 5,000 UNIT/0.5 ML VIAL SQ SCH (21:00)
[2019-07-14] MEDS: PIPERACILLIN/TAZOBACTAM 3.375 GM in DEXTROSE 5% 100 ML IV SCH ×4 (00:10→22:14)
[2019-07-14] MEDS: LEVOTHYROXINE SODIUM 50 MCG TABLET PO SCH (05:31)
[2019-07-14 05:32] LABS: Basophils # (auto) 0.02 K/uL (0-0.2); Basophils % (auto) 0.2 %; Eosinophils # (auto) 0.01 K/uL (0-0.5); Eosinophils % (auto) 0.1 %; Hematocrit (blood only) 29.2 % (37-47); Hemoglobin 9.7 g/dL (12.0-16.0); Immature Granulocytes # (auto) 0.08 K/uL (0.00-0.02); Immature Granulocytes % (auto) 0.6 %; Lymphocytes # (auto) 1.82 K/uL (1.2-3.4); Lymphocytes % (auto) 14.7 %; Mean Corpuscular Hemoglobin 30.3 pg (25-34); Mean Corpuscular Hgb Conc 33.2 g/dL (32-36); Mean Corpuscular Volume 91.3 fL (80-100); Mean Platelet Volume 8.8 fL (7.4-10.4); Monocytes % (auto) 4.9 %; Neutrophils # (auto) 9.82 K/uL (1.4-6.5); Neutrophils % (auto) 79.5 %; Platelet Count 198 K/uL (130-400); RDW Standard Deviation 53.2 fL (36.4-46.3); White Blood Count 12.35 K/uL (4.8-10.8)
[2019-07-14 05:57] LABS: BUN Creatinine Ratio 13.2 (10-20); Calcium 8.2 mg/dl (8.5-10.1); Creatinine Clr Calc Pharmacy 61.8 ml/min; Est GFR (African American) 89.4; Est GFR (Non-African American) 77.1; Magnesium 1.7 mg/dl (1.8-2.4); Potassium 3.7 mmol/L (3.5-5.1)
[2019-07-14] MEDS: MAGNESIUM SULFATE / D5W 1 GM/100 ML BAG IV SCH ×2 (08:04→10:35)
[2019-07-14] MEDS: PANTOprazole 40 MG in SYRINGE 0 ML IV SCH ×2 (08:47→20:04)
--- NOTE | 2019-07-14 10:37 | Anesthesiology Progress Note ---
Date of Service July 14, 2019 Anesthesia Post Procedure Vital Signs Vital Signs: Temp Pulse Resp BP Pulse Ox 07/14/19 07:11 37.2 C 81 16 149/73 H 95 07/13/19 23:36 36.9 C 90 16 149/85 H 94 07/13/19 14:52 36.9 C 81 18 124/68 95 Pain Intensity Medial Abdomen: Pain Intensity: 4 Notes Mental Status: alert / awake / arousable Patient Amnestic to Procedure: Yes Nausea / Vomiting: adequately controlled Pain: adequately controlled Airway Patency, RR, SpO2: stable & adequate BP & HR: stable & adequate Hydration State: stable & adequate Anesthetic Complications: no major complications apparent and Pt Satisfied with anesthetic care
--- NOTE | 2019-07-14 10:47 | Hospitalist Progress Note ---
Date of Service July 14, 2019 Assessment & Plan (1) Duodenal ulcer perforation: Duodenal Ulcer Perforation: - POD 4 s/p emergent exploratory lap with duodenal ulcer oversew. - NG tube in place, low intermittent suction. - Spoke with Dr. Bains, he will order UGI series to assess for leak and if all looks good will advance to clear liquids today. - If tolerates will d/c NG tube and TPN - continue Zosyn IV, Protonix 40mg IV BID. - WBC continue to downtrend, today 12.35 - Hgb stable at 9.7 Weakness: - Generalized suspected secondary to severe protein-calorie malnutrition and dehydration from vomiting/diarrhea, as well as recent surgery. - Too much pain and weakness, declined PT today - For rehab likely following discharge, referral to [facility] placed. Severe protein-calorie malnutrition: - NPO following surgery. - Once able will continue Boost, dietary consult. - TPN as above until can tolerate PO intake. JODI (acute kidney injury): - Cr elevated at time of admission, likely 2/2 dehydration. - resolved with IV fluids, electrolytes stable. Abnormal ECG: - ST changes without chest pain or shortness of breath on admission. - no elevation in troponin. - no further work up at this time. Hypomagnesemia: - improved after Mg 1 gram IV. - will continue to replete as necessary. Diarrhea: - C diff negative on admission. - Diarrhea started again last night, will recheck c diff and stool cultures Anisocoria: - left mydriasis noted on admission, suspected to be secondary to scopolamine patch which was discontinued. - resolved, not noted on my exam today. Breast cancer, left: - taking a break from chemotherapy due to reduced weight and malnourished state. - per prior record by Dr. Farias, patient says she wants quality of life over quantity, feels much better after surgery due to no vomiting, improving abdominal pain. Hypokalemia: - resolved with NSS with KCl 20meq. Code Status: DNR/DNI FEN/GI: NPO, NGT in place, TPN goal 1200 calories/day DVT ppx: Heparin 5000u SQ q12 Dispo: Med/Surg, for possible NGT tube removal tomorrow (2) S/P exploratory laparotomy: (3) JODI (acute kidney injury): (4) Hypomagnesemia: (5) Dehydration: (6) Hypokalemia: (7) Hypothyroidism: (8) Severe protein-calorie malnutrition: (9) Anisocoria: (10) Breast cancer, left: (11) High blood pressure: (12) High cholesterol: Admission and Anticipated Discharge Date Admission Date: July 10, 2019 Supervising Physician Co-Signing Physician Notes Resident Physician Supervision Note: I independently interviewed and examined the patient and verified the reyes history and physical, reviewed labs and image studies, discussed the case with the resident Dr. Lloyd and agree with the findings and care plan. Subjective Ms. Barrios has been suffering from continuous diarrhea since last night. She says she had this before but it had gotten somewhat better over last few days. She denies any fever, chills, endorses mild abdominal pain at the incision site. She has not been having nausea or vomiting, she is tolerating NG tube and Parenteral nutrition. No shortness of breath, no chest pain. PT OT came to see patient but she did not feel up to working with them. Review of Systems Review of Systems: All systems reviewed & are unremarkable except as noted in HPI & below Physical Exam Physical Exam: Constitutional: WD/WN, vitals as above Respiratory: normal respiratory effort, lungs clear to auscultation Cardiovascular: RRR, no murmur, no edema Gastrointestinal (Abdomen): normal bowel sounds, soft, nontender, no hepatosplenomegaly incisional site clean, dry, intact Skin: no rashes, warm and dry Psychiatric: A+Ox3, euthymic affect Results & Data Results & Data ([facility]) Vital Signs (Past 12 Hours) Vital Signs Temp Pulse Resp BP Pulse Ox 07/14/19 07:11 37.2 C 81 16 149/73 H 95 07/13/19 23:36 36.9 C 90 16 149/85 H 94 Resident Activity Tracking Resident Involvement: Resident Care Provided Care Provided: Adult [facility] Medicine
--- NOTE | 2019-07-14 10:48 | Surgery Progress Note ---
Date of Service F/U S/P repair duodenal ulcer perforation, POD 3. pt is doing fine, less abdominal pain, some diarrhea, no fever, NG 725 ml, ANDREW 70ml, July 14, 2019 Assessment & Plan (1) Duodenal ulcer perforation: pt is a 73 year-old female who was admitted to hospital for dehydration, last evening pt started have abdominal pain, CT scan - duodenal ulcer perforation, IMP: Duodenal ulcer perforation, Plan, I recommend to do emergent exploratory laparotomy, repair duodenal perforation, D/W benefits, risks and alternatives of the surgery, the risks - infection, bleeding, sepsis, Mi, DVT, , pt understood, she agrees with the surgery, I answered all questions, pre-op antibiotic 07/11/2019 11:30AM POD 1, S/P repair duodenal ulcer perforation, continue treatment, update or finding, pt understood, I answered all questions, spinal surgeon surgeon cover the weekend, thanks, 10:47AM doing fine, stomach leak study today, Check C-diff, will F/U Subjective pt seen. doing well pain improving. Review of Systems Constitutional: as per Subjective / HPI Eyes: as per Subjective / HPI Ear, Nose, Mouth, Throat: as per Subjective / HPI Respiratory: as per Subjective / HPI Cardiovascular: as per Subjective / HPI Additional Comments: HTN Gastrointestinal: as per Subjective / HPI diarrhea Genitourinary: as per Subjective / HPI breast cancer, port insertion Musculoskeletal: as per Subjective / HPI Integumentary: as per Subjective / HPI Neurologic: as per Subjective / HPI Psychiatric: as per Subjective / HPI Endocrine: as per Subjective / HPI Hematologic / Lymphatic: as per Subjective / HPI Physical Exam Constitutional: WD/WN, vitals as above + acute distress and + ill appearing Eyes: PERRL, conjunctivae normal, anicteric sclerae ENMT: external ear and nose normal, oropharynx normal Neck: trachea midline, no thyromegaly Respiratory: normal respiratory effort, lungs clear to auscultation Cardiovascular: RRR, no murmur, no edema Rate/Rhythm: regular rate and regular rhythm Heart Sounds: normal S1 and normal S2 Gastrointestinal (Abdomen): Percussion/Palpation: abdomen soft mild tenderness, no rebound pain, BS +, incision intact, no redness, no drainage Musculoskeletal: no cyanosis or clubbing, extremities motor strength 5/5 Skin: no rashes, warm and dry Neurologic: patellar DTR's 2+ bilat, sensation intact Psychiatric: Orientation: alert and oriented x 3 Results & Data Vital Signs (Past 12 Hours) Vital Signs Temp Pulse Resp BP Pulse Ox 07/14/19 07:11 37.2 C 81 16 149/73 H 95 07/13/19 23:36 36.9 C 90 16 149/85 H 94 Laboratory Results Abnormal lab results 07/13/19 07/13/19 07/14/19 Range/Units 17:55 23:48 05:17 WBC 12.35 H (4.8-10.8) K/uL RBC 3.20 L (4.2-5.4) M/uL Hgb 9.7 L (12.0-16.0) g/dL Hct 29.2 L (37-47) % RDW Std Deviation 53.2 H (36.4-46.3) fL RDW Coeff of Rafael 16.0 H (11.5-14.5) % Immature Gran # (Auto) 0.08 H (0.00-0.02) K/uL Neut # (Auto) 9.82 H (1.4-6.5) K/uL Crawford # (Auto) 0.60 H (0.11-0.59) K/uL Chloride (98-107) mmol/L Glucose (70-99) mg/dl POC Glucose 117 H 120 H (70-99) mg/dl Calcium (8.5-10.1) mg/dl Magnesium (1.8-2.4) mg/dl 07/14/19 07/14/19 Range/Units 05:17 05:44 WBC (4.8-10.8) K/uL RBC (4.2-5.4) M/uL Hgb (12.0-16.0) g/dL Hct (37-47) % RDW Std Deviation (36.4-46.3) fL RDW Coeff of Rafael (11.5-14.5) % Immature Gran # (Auto) (0.00-0.02) K/uL Neut # (Auto) (1.4-6.5) K/uL Crawford # (Auto) (0.11-0.59) K/uL Chloride 108 H (98-107) mmol/L Glucose 109 H (70-99) mg/dl POC Glucose 116 H (70-99) mg/dl Calcium 8.2 L (8.5-10.1) mg/dl Magnesium 1.7 L (1.8-2.4) mg/dl
--- NOTE | 2019-07-14 11:30 | Fluoroscopy Report ---
Study: Upper GI HISTORY: Postoperative evaluation. Perforated ulcer. FINDINGS: Study is performed with contrast injection via the patient's nasogastric tube. Configuration of the stomach is grossly unremarkable. Duodenal bulb appears to fill well. There is no evidence for contrast extravasation. There is good flow of contrast to the small bowel with no obstructive characteristics. IMPRESSION: 1. No evidence for extravasation. 2. Contrast flows well to the small bowel with no obstructive change. Electronically signed by: Sachin Ko M.D. 07/14/2019 11:28 AM
--- NOTE | 2019-07-14 11:51 | Pharmacy Report ---
PHA: Parenteral Nutrition Con - Date of Service July 14, 2019 - Scope Pharmacy was consulted on 07/13/19 to manage parenteral nutrition orders for this patient. - Subjective The patient is currently on day 2 of [facility] parenteral nutrition for prolonged malnutrition. - Objective Height: 5 ft 6 in Weight: 61.7 kg Diet: NPO Intake & Output (24hrs):: Intake & Output 07/12/19 07/13/19 07/14/19 07/15/19 06:59 06:59 06:59 06:59 Intake Total 2483.333 / 2483.333 3365.500 / 3365.500 1345 / 1345 215 / 215 Output Total 1855 / 1855 3806 / 3806 1541 / 1541 Balance 628.333 / 628.333 -440.500 / -440.500 -196 / -196 215 / 215 Weight 66.1 kg 61.7 kg Laboratory Data (Last 24 Hr):: 07/14/19 05:17 Sodium 141 Potassium 3.7 Chloride 108 H Carbon Dioxide 27 BUN 10 Creatinine 0.77 Glucose 109 H Calcium 8.2 L Phosphorus 4.0 Magnesium 1.7 L Nutrition Assessment:: Please refer to the Notes section of the EMR for the most recent technical support assistant note. - Assessment * Patient with negative balance of 196 mL * 725 mL output from gastric drainage (right nare) * 140 mL output from abdomen ANDREW drain * Significant diarrhea noted as well * Labs are relatively stable - will decrease chloride content given slightly hig h level of 108. * Will increase magnesium, potassium, and phosphorus given increase in dextrose content and significant GI losses * Received #2 - 1 g IV magnesium riders today * Continues on Zosyn 3.375 g IV q8h for duodenal ulcer perforation - Plan For day 2 of PN administration, the following will be ordered: Macronutrients Amino acids 80 grams/day Dextrose 225 grams/day Lipids 50 grams/day Micronutrients Combined electrolytes 40 mL - contains 35 mEq Na, 20 meq K, 4.5 mEq Ca, 5 mEq Mg, 35 mEq Cl, 29.5 mEq acetate per 20 mL Potassium phosphate 30 mMol Magnesium sulfate 8.12 mEq Multivitamins 10 mL Trace Elements 1 mL Additional additives: folic acid 1 mg, thiamine 100 mg Total volume 1435 mL to be infused over 24 hrs will provide 1585 kcal/day Final osmolarity 1552 mOsm/L (maximum for PPN is 900 mOsm/L) Labs, as indicated, will be ordered per protocol Pharmacy will continue to follow and adjust parenteral nutrition orders on a daily basis. Thank you for allowing us to participate in the care of this patient.
[2019-07-14] MEDS ORDERED: TPN IV SCH (16:00)
[2019-07-14] MEDS ORDERED: CENTRAL PN IV SCH (16:00)
[2019-07-14] MEDS: CENTRAL PN IV SCH (16:59)
[2019-07-14] MEDS: TPN IV SCH (16:59)
[2019-07-15 05:03] LABS: Basophils # (auto) 0.04 K/uL (0-0.2); Basophils % (auto) 0.3 %; Eosinophils # (auto) 0.02 K/uL (0-0.5); Eosinophils % (auto) 0.2 %; Hemoglobin 10.2 g/dL (12.0-16.0); Immature Granulocytes # (auto) 0.08 K/uL (0.00-0.02); Immature Granulocytes % (auto) 0.6 %; Lymphocytes # (auto) 2.08 K/uL (1.2-3.4); Lymphocytes % (auto) 16.8 %; Mean Corpuscular Hemoglobin 30.4 pg (25-34); Mean Corpuscular Hgb Conc 32.9 g/dL (32-36); Mean Corpuscular Volume 92.3 fL (80-100); Mean Platelet Volume 8.7 fL (7.4-10.4); Monocytes # (auto) 0.76 K/uL (0.11-0.59); Monocytes % (auto) 6.1 %; Neutrophils # (auto) 9.42 K/uL (1.4-6.5); Platelet Count 213 K/uL (130-400); RDW Coefficient of Variation 15.9 % (11.5-14.5); RDW Standard Deviation 53.8 fL (36.4-46.3); Red Blood Count 3.36 M/uL (4.2-5.4)
[2019-07-15 05:36] LABS: Albumin Level 2.2 gm/dl (3.4-5.0); BUN Creatinine Ratio 23.6 (10-20); Calcium 8.7 mg/dl (8.5-10.1); Creatinine Clr Calc Pharmacy 61.8 ml/min; Est GFR (African American) 89.4; Est GFR (Non-African American) 77.1; Magnesium 2.2 mg/dl (1.8-2.4); Potassium 3.8 mmol/L (3.5-5.1)
[2019-07-15 05:41] LABS: Albumin Globulin Ratio 0.6 (0.9-2); Bilirubin,Total 0.5 mg/dl (0.2-1); Phosphorus 4.2 mg/dl (2.5-4.9); Total Protein 6.2 gm/dl (6.4-8.2)
[2019-07-15] MEDS: PIPERACILLIN/TAZOBACTAM 3.375 GM in DEXTROSE 5% 100 ML IV SCH (06:34)
[2019-07-15] MEDS: LEVOTHYROXINE SODIUM 50 MCG TABLET PO SCH (06:34)
[2019-07-15] MEDS: PANTOprazole 40 MG in SYRINGE 0 ML IV SCH ×2 (07:49→21:38)
[2019-07-15] MEDS: HEPARIN 100 UNIT/ML 5ML FLUSH FLUSH PRN (09:50)
--- NOTE | 2019-07-15 11:29 | Surgery Progress Note ---
Date of Service UGI study no leak, she tolerated clear diet, no abdominal pain, no fever, ANDREW 70ml, July 15, 2019 Assessment & Plan (1) Duodenal ulcer perforation: pt is a 73 year-old female who was admitted to hospital for dehydration, last evening pt started have abdominal pain, CT scan - duodenal ulcer perforation, IMP: Duodenal ulcer perforation, Plan, I recommend to do emergent exploratory laparotomy, repair duodenal perforation, D/W benefits, risks and alternatives of the surgery, the risks - infection, bleeding, sepsis, Mi, DVT, , pt understood, she agrees with the surgery, I answered all questions, pre-op antibiotic 07/11/2019 11:30AM POD 1, S/P repair duodenal ulcer perforation, continue treatment, update or finding, pt understood, I answered all questions, conveyancer surgeon cover the weekend, thanks, 10:47AM doing fine, stomach leak study today, Check C-diff, will F/U 07/15/2019 11:29AM, doing fine, possible remove ANDREW tomorrow, tolerated diet, possible D/C home in 1-2 days, Subjective Ms. Barrios has been suffering from continuous diarrhea since last night. She says she had this before but it had gotten somewhat better over last few days. She denies any fever, chills, endorses mild abdominal pain at the incision site. She has not been having nausea or vomiting, she is tolerating NG tube and Parenteral nutrition. No shortness of breath, no chest pain. PT OT came to see patient but she did not feel up to working with them. Review of Systems Constitutional: as per Subjective / HPI Eyes: as per Subjective / HPI Ear, Nose, Mouth, Throat: as per Subjective / HPI Respiratory: as per Subjective / HPI Cardiovascular: as per Subjective / HPI Additional Comments: HTN Gastrointestinal: as per Subjective / HPI diarrhea Genitourinary: as per Subjective / HPI breast cancer, port insertion Musculoskeletal: as per Subjective / HPI Integumentary: as per Subjective / HPI Neurologic: as per Subjective / HPI Psychiatric: as per Subjective / HPI Endocrine: as per Subjective / HPI Hematologic / Lymphatic: as per Subjective / HPI Physical Exam Constitutional: WD/WN, vitals as above + acute distress and + ill appearing Eyes: PERRL, conjunctivae normal, anicteric sclerae ENMT: external ear and nose normal, oropharynx normal Neck: trachea midline, no thyromegaly Respiratory: normal respiratory effort, lungs clear to auscultation Cardiovascular: RRR, no murmur, no edema Rate/Rhythm: regular rate and regular rhythm Heart Sounds: normal S1 and normal S2 Gastrointestinal (Abdomen): Percussion/Palpation: abdomen soft incision intact, no redness, no tenderness, no distend, Musculoskeletal: no cyanosis or clubbing, extremities motor strength 5/5 Skin: no rashes, warm and dry Neurologic: patellar DTR's 2+ bilat, sensation intact Psychiatric: Orientation: alert and oriented x 3 Results & Data Vital Signs (Past 12 Hours) Vital Signs Temp Pulse Resp BP Pulse Ox 07/15/19 07:24 37.0 C 78 20 150/78 H 97 07/15/19 00:08 37.6 C H 80 14 155/71 H 96 Laboratory Results Abnormal lab results 07/14/19 07/14/19 07/15/19 Range/Units 13:27 17:52 00:06 WBC (4.8-10.8) K/uL RBC (4.2-5.4) M/uL Hgb (12.0-16.0) g/dL Hct (37-47) % RDW Std Deviation (36.4-46.3) fL RDW Coeff of Rafael (11.5-14.5) % Immature Gran # (Auto) (0.00-0.02) K/uL Neut # (Auto) (1.4-6.5) K/uL Stanly # (Auto) (0.11-0.59) K/uL BUN/Creatinine Ratio (10-20) Glucose (70-99) mg/dl POC Glucose 108 H 122 H 131 H (70-99) mg/dl Alkaline Phosphatase (45-117) U/L Total Protein (6.4-8.2) gm/dl Albumin (3.4-5.0) gm/dl Albumin/Globulin Ratio (0.9-2) Triglycerides (0-150) mg/dl 07/15/19 07/15/19 07/15/19 Range/Units 04:53 04:53 06:13 WBC 12.40 H (4.8-10.8) K/uL RBC 3.36 L (4.2-5.4) M/uL Hgb 10.2 L (12.0-16.0) g/dL Hct 31.0 L (37-47) % RDW Std Deviation 53.8 H (36.4-46.3) fL RDW Coeff of Rafael 15.9 H (11.5-14.5) % Immature Gran # (Auto) 0.08 H (0.00-0.02) K/uL Neut # (Auto) 9.42 H (1.4-6.5) K/uL Stanly # (Auto) 0.76 H (0.11-0.59) K/uL BUN/Creatinine Ratio 23.6 H (10-20) Glucose 113 H (70-99) mg/dl POC Glucose 123 H (70-99) mg/dl Alkaline Phosphatase 156 H (45-117) U/L Total Protein 6.2 L (6.4-8.2) gm/dl Albumin 2.2 L (3.4-5.0) gm/dl Albumin/Globulin Ratio 0.6 L (0.9-2) Triglycerides 221 H (0-150) mg/dl Diagnostic Findings tudy: Upper GI HISTORY: Postoperative evaluation. Perforated ulcer. FINDINGS: Study is performed with contrast injection via the patient's nasogastric tube. Configuration of the stomach is grossly unremarkable. Duodenal bulb appears to fill well. There is no evidence for contrast extravasation. There is good flow of contrast to the small bowel with no obstructive characteristics. IMPRESSION: 1. No evidence for extravasation.
[2019-07-15] MEDS ORDERED: Nursing to Pharmacy Communication ONE (12:13)
--- NOTE | 2019-07-15 14:09 | Hospitalist Progress Note ---
Date of Service July 15, 2019 Assessment & Plan (1) Duodenal ulcer perforation: Duodenal Ulcer Perforation: - POD 5 s/p emergent exploratory lap with duodenal ulcer oversew. - NG tube removed -Tolerating clear liquids well, will advance diet to full liquids - D/C zosyn today - Continuing Protonix 40mg IV BID. - Hgb stable at 10.2 Weakness: - Generalized suspected secondary to severe protein-calorie malnutrition and dehydration from vomiting/diarrhea, as well as recent surgery. - Encouraged working with PT today and she is feeling up to it. - For rehab likely following discharge, referral to [facility]. Severe protein-calorie malnutrition: - Advancing to full liquids - Once able will continue Boost, dietary consult. - Discontinued TPN JODI (acute kidney injury): - Cr elevated at time of admission, likely 2/2 dehydration. - resolved with IV fluids, electrolytes stable. Abnormal ECG: - ST changes without chest pain or shortness of breath on admission. - no elevation in troponin. - no further work up at this time. Hypomagnesemia: - improved after Mg 1 gram IV. - will continue to replete as necessary. Diarrhea: - C diff stool cultures negative - Hopefully discontinuing Abx may be helpful Anisocoria: - left mydriasis noted on admission, suspected to be secondary to scopolamine patch which was discontinued. - resolved, not noted on my exam today. Breast cancer, left: - taking a break from chemotherapy due to reduced weight and malnourished state. - per prior record by Dr. Farias, patient says she wants quality of life over quantity, feels much better after surgery due to no vomiting, improving abdominal pain. Hypokalemia: - resolved with NSS with KCl 20meq. Code Status: DNR/DNI FEN/GI: Full liquid diet DVT ppx: Heparin 5000u SQ q12 Dispo: Med/Surg for likely rehab placement upon discharge. (2) S/P exploratory laparotomy: (3) JODI (acute kidney injury): (4) Hypomagnesemia: (5) Dehydration: (6) Hypokalemia: (7) Hypothyroidism: (8) Severe protein-calorie malnutrition: (9) Anisocoria: (10) Breast cancer, left: (11) High blood pressure: (12) High cholesterol: Admission and Anticipated Discharge Date Admission Date: July 10, 2019 Supervising Physician Co-Signing Physician Notes Resident Physician Supervision Note: I independently interviewed and examined the patient and verified the reyes history and physical, reviewed labs and image studies, discussed the case with the resident Dr. Lloyd and agree with the findings and care plan. Nilda Barrios is feeling much better this morning, tells me she is tolerating her clear liquid diet well, we will advance to full liquid today. Has been fever free and asymptomatic on review of systems other than continued liquid diarrhea. She is feeling stronger and wishes to work with PT/OT today. Review of Systems Review of Systems: All systems reviewed & are unremarkable except as noted in HPI & below Physical Exam Physical Exam: Constitutional: WD/WN, vitals as above Respiratory: normal respiratory effort, lungs clear to auscultation Cardiovascular: RRR, no murmur, no edema Gastrointestinal (Abdomen): normal bowel sounds, soft, nontender, no hepatosplenomegaly incisional site clean, dry, intact Skin: no rashes, warm and dry Psychiatric: A+Ox3, euthymic affect Results & Data Results & Data ([facility]) Vital Signs (Past 12 Hours) Vital Signs Temp Pulse Resp BP Pulse Ox 07/15/19 07:24 37.0 C 78 20 150/78 H 97 Resident Activity Tracking Resident Involvement: Resident Care Provided Care Provided: Adult Hospital Medicine
[2019-07-15] MEDS: ondansetron HCL 8 MG in DEXTROSE 5% 50 ML IV PRN (17:16)
[2019-07-16 06:02] LABS: Basophils # (auto) 0.02 K/uL (0-0.2); Basophils % (auto) 0.2 %; Eosinophils # (auto) 0.01 K/uL (0-0.5); Eosinophils % (auto) 0.1 %; Hematocrit (blood only) 32.7 % (37-47); Hemoglobin 10.5 g/dL (12.0-16.0); Immature Granulocytes # (auto) 0.04 K/uL (0.00-0.02); Immature Granulocytes % (auto) 0.4 %; Lymphocytes # (auto) 2.02 K/uL (1.2-3.4); Lymphocytes % (auto) 21.7 %; Mean Corpuscular Hemoglobin 29.7 pg (25-34); Mean Corpuscular Hgb Conc 32.1 g/dL (32-36); Mean Corpuscular Volume 92.4 fL (80-100); Mean Platelet Volume 8.7 fL (7.4-10.4); Monocytes % (auto) 8.6 %; Neutrophils # (auto) 6.41 K/uL (1.4-6.5); Platelet Count 226 K/uL (130-400); RDW Coefficient of Variation 15.8 % (11.5-14.5); RDW Standard Deviation 53.9 fL (36.4-46.3); Red Blood Count 3.54 M/uL (4.2-5.4)
[2019-07-16] MEDS: LEVOTHYROXINE SODIUM 50 MCG TABLET PO SCH ×2 (06:03→07:41)
[2019-07-16 06:28] LABS: BUN Creatinine Ratio 26.7 (10-20); Calcium 9.1 mg/dl (8.5-10.1); Creatinine Clr Calc Pharmacy 54.1 ml/min; Est GFR (African American) 76.1; Est GFR (Non-African American) 65.6; Potassium 3.9 mmol/L (3.5-5.1)
[2019-07-16 06:41] LABS: Phosphorus 3.6 mg/dl (2.5-4.9)
[2019-07-16] MEDS: PANTOprazole 40 MG in SYRINGE 0 ML IV SCH ×2 (07:41→21:07)
[2019-07-16] MEDS: HEPARIN 100 UNIT/ML 5ML FLUSH FLUSH PRN (09:26)
--- NOTE | 2019-07-16 13:37 | Surgery Progress Note ---
Date of Service doing fine, tolerated diet, no abdominal pain, no fever, ANDREW 30ml, clear color. July 16, 2019 Assessment & Plan (1) Duodenal ulcer perforation: pt is a 73 year-old female who was admitted to hospital for dehydration, last evening pt started have abdominal pain, CT scan - duodenal ulcer perforation, IMP: Duodenal ulcer perforation, Plan, I recommend to do emergent exploratory laparotomy, repair duodenal perforation, D/W benefits, risks and alternatives of the surgery, the risks - infection, bleeding, sepsis, Mi, DVT, , pt understood, she agrees with the surgery, I answered all questions, pre-op antibiotic 07/11/2019 11:30AM POD 1, S/P repair duodenal ulcer perforation, continue treatment, update or finding, pt understood, I answered all questions, registration representative surgeon cover the weekend, thanks, 10:47AM doing fine, stomach leak study today, Check C-diff, will F/U 07/15/2019 11:29AM, doing fine, possible remove ANDREW tomorrow, tolerated diet, possible D/C home in 1-2 days, 07/16/2019 1:34PM doing fine, pulled out ANDREW, soft diet today pt can be discharged tomorrow, sign off today, please call with questions, Follow up me in 2 weeks, she can take a shower on 07/18/2019, , no heavy lifting>25 LBS for 4 weeks, Thanks, Subjective Ciarra Barrios is feeling much better this morning, tells me she is tolerating her clear liquid diet well, we will advance to full liquid today. Has been fever free and asymptomatic on review of systems other than continued liquid diarrhea. She is feeling stronger and wishes to work with PT/OT today. Review of Systems Constitutional: as per Subjective / HPI Eyes: as per Subjective / HPI Ear, Nose, Mouth, Throat: as per Subjective / HPI Respiratory: as per Subjective / HPI Cardiovascular: as per Subjective / HPI Additional Comments: HTN Gastrointestinal: as per Subjective / HPI diarrhea Genitourinary: as per Subjective / HPI breast cancer, port insertion Musculoskeletal: as per Subjective / HPI Integumentary: as per Subjective / HPI Neurologic: as per Subjective / HPI Psychiatric: as per Subjective / HPI Endocrine: as per Subjective / HPI Hematologic / Lymphatic: as per Subjective / HPI Physical Exam Constitutional: WD/WN, vitals as above + acute distress and + ill appearing Eyes: PERRL, conjunctivae normal, anicteric sclerae ENMT: external ear and nose normal, oropharynx normal Neck: trachea midline, no thyromegaly Respiratory: normal respiratory effort, lungs clear to auscultation Cardiovascular: RRR, no murmur, no edema Rate/Rhythm: regular rate and regular rhythm Heart Sounds: normal S1 and normal S2 Gastrointestinal (Abdomen): Percussion/Palpation: abdomen soft NT, ND, incision heals well, no redness, , ANDREW intact, Musculoskeletal: no cyanosis or clubbing, extremities motor strength 5/5 Skin: no rashes, warm and dry Neurologic: patellar DTR's 2+ bilat, sensation intact Psychiatric: Orientation: alert and oriented x 3 Results & Data Vital Signs (Past 12 Hours) Vital Signs Temp Pulse Resp BP Pulse Ox 07/16/19 07:48 36.6 C 79 18 119/76 96
--- NOTE | 2019-07-16 14:02 | Hospitalist Progress Note ---
Date of Service July 16, 2019 Assessment & Plan (1) Duodenal ulcer perforation: Duodenal Ulcer Perforation: - POD 6 s/p emergent exploratory lap with duodenal ulcer oversew. - NG tube removed -Tolerating full liquids today although not BOOST which made her feel like she has to vomit - D/C zosyn - Transitioning to oral protonix - Dr. flores to remove ANDREW drain today Weakness: - Generalized suspected secondary to severe protein-calorie malnutrition and de hydration from vomiting/diarrhea, as well as recent surgery. - Encouraged working with PT today and she is feeling up to it. - For rehab likely following discharge, referral to location in [facility] Severe protein-calorie malnutrition: - Advanced to full diet - Discontinued TPN JODI (acute kidney injury): - Cr elevated at time of admission, likely 2/2 dehydration. - resolved with IV fluids, electrolytes stable. Abnormal ECG: - ST changes without chest pain or shortness of breath on admission. - no elevation in troponin. - no further work up at this time. Hypomagnesemia: - improved after Mg 1 gram IV. - will continue to replete as necessary. Diarrhea: - C diff stool cultures negative - Hopefully discontinuing Abx may be helpful Anisocoria: - left mydriasis noted on admission, suspected to be secondary to scopolamine patch which was discontinued. - resolved, not noted on my exam today. Breast cancer, left: - taking a break from chemotherapy due to reduced weight and malnourished state. - per prior record by Dr. Farias, patient says she wants quality of life over quantity, feels much better after surgery due to no vomiting, improving abdominal pain. - Former patient of Dr. Bryan's says she will need outpatient oncology appointment with new oncologist Hypokalemia: - resolved with NSS with KCl 20meq. Code Status: DNR/DNI FEN/GI: Regular diet DVT ppx: Heparin 5000u SQ q12 Dispo: Med/Surg awaiting drain removal and rehab placement (2) S/P exploratory laparotomy: (3) JODI (acute kidney injury): (4) Hypomagnesemia: (5) Dehydration: (6) Hypokalemia: (7) Hypothyroidism: (8) Severe protein-calorie malnutrition: (9) Anisocoria: (10) Breast cancer, left: (11) High blood pressure: (12) High cholesterol: Admission and Anticipated Discharge Date Admission Date: July 10, 2019 Supervising Physician Co-Signing Physician Notes Resident Physician Supervision Note: I independently interviewed and examined the patient and verified the reyes history and physical, reviewed labs and image studies, discussed the case with the resident Dr. Lloyd and agree with the findings and care plan. Subjective Ms Barrios doing very well this morning, ate well and walked around hospital wing with PT. Feeling much better. Review of Systems Review of Systems: All systems reviewed & are unremarkable except as noted in HPI & below Physical Exam Physical Exam: Constitutional: WD/WN, vitals as above Respiratory: normal respiratory effort, lungs clear to auscultation Cardiovascular: RRR, no murmur, no edema Gastrointestinal (Abdomen): normal bowel sounds, soft, nontender, no hepatosplenomegaly incisional site clean, dry, intact ANDREW drain draining serosanguinous fluid Skin: no rashes, warm and dry Psychiatric: A+Ox3, euthymic affect Results & Data Results & Data ([facility]) Vital Signs (Past 12 Hours) Vital Signs Temp Pulse Resp BP Pulse Ox 07/16/19 07:48 36.6 C 79 18 119/76 96
[2019-07-17] MEDS: LEVOTHYROXINE SODIUM 50 MCG TABLET PO SCH (06:19)
[2019-07-17] MEDS: HEPARIN 100 UNIT/ML 5ML FLUSH FLUSH PRN ×2 (07:29→20:19)
[2019-07-17 07:39] LABS: Basophils # (auto) 0.04 K/uL (0-0.2); Basophils % (auto) 0.4 %; Eosinophils # (auto) 0.01 K/uL (0-0.5); Eosinophils % (auto) 0.1 %; Hematocrit (blood only) 31.3 % (37-47); Immature Granulocytes # (auto) 0.04 K/uL (0.00-0.02); Immature Granulocytes % (auto) 0.4 %; Lymphocytes # (auto) 2.67 K/uL (1.2-3.4); Lymphocytes % (auto) 29.2 %; Mean Corpuscular Hemoglobin 29.8 pg (25-34); Mean Corpuscular Hgb Conc 31.9 g/dL (32-36); Mean Corpuscular Volume 93.2 fL (80-100); Mean Platelet Volume 8.2 fL (7.4-10.4); Monocytes % (auto) 7.7 %; Neutrophils # (auto) 5.69 K/uL (1.4-6.5); Neutrophils % (auto) 62.2 %; Platelet Count 249 K/uL (130-400); RDW Coefficient of Variation 15.6 % (11.5-14.5); RDW Standard Deviation 53.2 fL (36.4-46.3); Red Blood Count 3.36 M/uL (4.2-5.4); White Blood Count 9.15 K/uL (4.8-10.8)
[2019-07-17] MEDS: PANTOprazole 40 MG in SYRINGE 0 ML IV SCH ×2 (08:42→20:19)
--- NOTE | 2019-07-17 14:57 | Hospitalist Progress Note ---
Date of Service July 17, 2019 Assessment & Plan (1) Duodenal ulcer perforation: Duodenal Ulcer Perforation: - POD 7 s/p emergent exploratory lap with duodenal ulcer oversew. - NG tube removed -Tolerating regular diet today no vomiting - Diarrhea has slowed down - D/C zosyn - switched to oral protonix Weakness: - Generalized suspected secondary to severe protein-calorie malnutrition and dehydration from vomiting/diarrhea, as well as recent surgery. - Encouraged working with PT - For rehab awaiting placement at [place] will have bed available tomorrow evening Severe protein-calorie malnutrition: - Advanced to full diet - Discontinued TPN JODI (acute kidney injury): - Cr elevated at time of admission, likely 2/2 dehydration. - resolved with IV fluids, electrolytes stable. Abnormal ECG: - ST changes without chest pain or shortness of breath on admission. - no elevation in troponin. - no further work up at this time. Hypomagnesemia: - improved after Mg 1 gram IV. - will continue to replete as necessary. Diarrhea: - C diff stool cultures negative - Has resolved since d/c abx and advancing diet Anisocoria: - left mydriasis noted on admission, suspected to be secondary to scopolamine patch which was discontinued. - resolved, not noted on my exam today. Breast cancer, left: - taking a break from chemotherapy due to reduced weight and malnourished state. - per prior record by Dr. Farias, patient says she wants quality of life over quantity, feels much better after surgery due to no vomiting, improving abdominal pain. - Former patient of Dr. Bryan's says she will need outpatient oncology appointment with new oncologist - Appointments scheduled with cancer center upon discharge. Hypokalemia: - resolved with NSS with KCl 20meq. Code Status: DNR/DNI FEN/GI: Regular diet DVT ppx: Heparin 5000u SQ q12 Dispo: Med/Surg awaiting rehab bed availability tomorrow night. (2) S/P exploratory laparotomy: (3) JODI (acute kidney injury): (4) Hypomagnesemia: (5) Dehydration: (6) Hypokalemia: (7) Hypothyroidism: (8) Severe protein-calorie malnutrition: (9) Anisocoria: (10) Breast cancer, left: (11) High blood pressure: (12) High cholesterol: Admission and Anticipated Discharge Date Admission Date: July 10, 2019 Supervising Physician Co-Signing Physician Notes Resident Physician Supervision Note: I independently interviewed and examined the patient and verified the reyes history and physical, reviewed labs and image studies, discussed the case with the resident Dr. Lloyd and agree with the findings and care plan. Subjective Ms Barrios continues to do well today, eating peaches this morning, excited to work with physical therapy. Her goal is to be up and walking independently by her birthday. Review of Systems Review of Systems: All systems reviewed & are unremarkable except as noted in HPI & below Physical Exam Physical Exam: Constitutional: WD/WN, vitals as above Respiratory: normal respiratory effort, lungs clear to auscultation Cardiovascular: RRR, no murmur, no edema Gastrointestinal (Abdomen): normal bowel sounds, soft, nontender, no hepatosplenomegaly incisional site clean, dry, intact ANDREW drain now removed Skin: no rashes, warm and dry Psychiatric: A+Ox3, euthymic affect Results & Data Results & Data ([facility]) Vital Signs (Past 12 Hours) Vital Signs Temp Pulse Resp BP Pulse Ox 07/17/19 08:18 36.7 C 76 16 130/76 96 Resident Activity Tracking Resident Involvement: Resident Care Provided Care Provided: Adult Hospital Medicine
[2019-07-18 05:53] LABS: Hematocrit (blood only) 31.7 % (37-47); Hemoglobin 10.3 g/dL (12.0-16.0); Mean Corpuscular Hemoglobin 30.3 pg (25-34); Mean Corpuscular Hgb Conc 32.5 g/dL (32-36); Mean Corpuscular Volume 93.2 fL (80-100); Mean Platelet Volume 8.6 fL (7.4-10.4); Platelet Count 290 K/uL (130-400); RDW Coefficient of Variation 15.5 % (11.5-14.5); RDW Standard Deviation 52.5 fL (36.4-46.3); White Blood Count 9.96 K/uL (4.8-10.8)
[2019-07-18] MEDS: LEVOTHYROXINE SODIUM 50 MCG TABLET PO SCH (06:46)
[2019-07-18 07:21] LABS: Basophils # (auto) 0.07 K/uL (0-0.2); Basophils % (auto) 0.7 %; Dohle Bodies 1+; Eosinophils # (auto) 0.02 K/uL (0-0.5); Eosinophils % (auto) 0.2 %; Immature Granulocytes # (auto) 0.04 K/uL (0.00-0.02); Immature Granulocytes % (auto) 0.4 %; Lymphocytes # (auto) 3.99 K/uL (1.2-3.4); Lymphocytes % (auto) 40.1 %; Monocytes # (auto) 0.76 K/uL (0.11-0.59); Monocytes % (auto) 7.6 %; Neutrophils # (auto) 5.08 K/uL (1.4-6.5); Toxic Granulation 1+
[2019-07-18 07:36] VITALS: BP 145/71; PULSE 73; TEMP 97.9; O2SAT 98
[2019-07-18] MEDS: PANTOprazole 40 MG in SYRINGE 0 ML IV SCH (08:20)
--- NOTE | 2019-07-18 08:25 | Discharge Summary ---
Date of Service July 18, 2019 Admission HPI Per Admitting Provider Ciarra Barrios is a 73 year old female who presents to the ER after being unable to walk into the cancer center for her IV fluid treatment for ongoing diarrhea secondary to chemotherapy. She notes her chemotherapy is currently on hold due to this side effect and her weight loss. Today while trying to walk up the stops she sudden felt very weak in her legs and was unable to get any further so sat down and her friend alerted the [facility] center who advised her to call for an ambulance. On prior documentation it was noted she was presyncopal however the patient denies this to me and just reports generalized weakness. She has not been out of the bed since then but feels improved since coming to the ER. With regards to her EKG changes she denies any shortness of breath or chest pain. No claudication, presyncope, syncope or palpitations. Admission Exam Per Admitting Provider Constitutional: well developed and + cachectic; + not well nourished and no acute distress Eyes: + anicteric sclerae and + anisocoria (mydriasis left eye) ENMT: external ear and nose normal, oropharynx normal Neck: trachea midline, no thyromegaly Respiratory: normal respiratory effort, lungs clear to auscultation Cardiovascular: RRR, no murmur, no edema Gastrointestinal (Abdomen): normal bowel sounds, soft, nontender, no hepatosplenomegaly Musculoskeletal: no cyanosis or clubbing, extremities motor strength 5/5 Skin: no rashes, warm and dry Neurologic: moves all extremities and awake; no focal motor deficits (LE strength 5/5 b/l equal) and not confused Speech / Cognition: normal speech Motor/Sensory: no tremor, no pronator drift and no sensory deficit Psychiatric: A+Ox3, euthymic affect Principal Diagnosis S/p Duodenal ulcer perforation with emergent ex lap and severe weakness and protein calorie malnutrition Discharge Exam Constitutional: WD/WN, vitals as above Respiratory: normal respiratory effort, lungs clear to auscultation Cardiovascular: RRR, no murmur, no edema Gastrointestinal (Abdomen): normal bowel sounds, soft, nontender, no hepatosplenomegaly incisional site clean, dry, intact ANDREW drain now removed Skin: no rashes, warm and dry Psychiatric: A+Ox3, euthymic affect Discharge Data Allergies Allergy/AdvReac Type Severity Reaction Status Date / Time Sulfa (Sulfonamide Allergy Unknown Rash Verified 07/08/19 15:40 Antibiotics) Dkqeobc-Ejj-Fbo Reductase AdvReac Unknown Muscle Pain Verified 07/08/19 15:40 Inhibitor Consultations 07/08/19 17:01 ED Decision to Admit Stat 07/10/19 23:47 Consult General Surgery Stat 07/11/19 04:28 Consult Senior Project Accountant Stat 07/11/19 04:31 Consult Case Management - Discharge Planning Routine Procedures Performed Operation Date: 07/11/19 01:15 Actual Procedures p Emergent Exploratory Laparotomy, Repair of perforated duodenal ulcer(Not Applicable) - Thompson Bains MD Ordered Studies 07/08/19 16:12 CT angio chest PE protocol Stat 07/10/19 10:38 MR brain wo con Routine 07/10/19 22:48 CT abd pelvis IV con only Urgent Hospital Course (1) Duodenal ulcer perforation: Ms. Ciarra Barrios is a wonderful 73 year old woman who presented to the [facility] ER on 07/08/2019 after being unable to walk into the [facility] for her IV fluid treatment for ongoing diarrhea secondary to chemotherapy. She notes her chemotherapy is currently on hold due to this side effect and her weight loss. While trying to walk up the steps she suddenly felt very weak in her legs and was unable to get any further so sat down and her friend alerted the [facility] who advised her to call for an ambulance. On prior documentation it was noted she was presyncopal however the patient denies this to me and just reports generalized weakness. She has not been out of the bed since then but feels improved since coming to the ER. She was initially admitted for her diarrhea/nausea/vomiting and placed on IV fluids and antinausea medication On hospital day 3 in the mold setter patient had worsening abdominal pain and a peritonitic abdomen on exam, CT scan revealed a newly perforated duodenal ulcer and she was taken back for surgery emergently. Duodenal Ulcer Perforation: - POD 8 s/p emergent exploratory lap with duodenal ulcer oversew. - NG tube removed, drains out -Tolerating regular diet today no vomiting - Diarrhea has slowed down - D/C zosyn not on any antibiotics moving forward - switched to oral protonix - she can take a shower on 07/18/2019, , no heavy lifting>25 LBS for 4 weeks, follow up with dr. Bains in two weeks [phone] Weakness: - Generalized weakness suspected secondary to severe protein-calorie malnutrition and dehydration from vomiting/diarrhea, as well as recent surgery. - Encouraged working with PT - For rehab at [facility] Severe protein-calorie malnutrition: - Kept on TPN while NPO. - Advanced to full diet - Could still use a better PO intake JODI (acute kidney injury): - Cr elevated at time of admission, likely 2/2 dehydration. - resolved with IV fluids, electrolytes stable. Abnormal ECG: - ST changes without chest pain or shortness of breath on admission. - no elevation in troponin. - no further work up at this time. Hypomagnesemia: - improved after Mg 1 gram IV. - will continue to replete as necessary. -Recommend checking BMP mag and phos on arrival to rehab facility Diarrhea: - C diff stool cultures negative - Has resolved since d/c abx and advancing diet Anisocoria: - left mydriasis noted on admission, suspected to be secondary to scopolamine patch which was discontinued. - resolved, not noted on my exam today. Breast cancer, left: - taking a break from chemotherapy due to reduced weight and malnourished state. - per prior record by Dr. Farias, patient says she wants quality of life over quantity, feels much better after surgery due to no vomiting, improving abdominal pain. - Former patient of Dr. Bryan's says she will need outpatient oncology appointment with new oncologist - Appointments now scheduled with cancer center upon discharge. Hypokalemia: - resolved with NSS with KCl 20meq. Code Status: DNR/DNI (2) S/P exploratory laparotomy: (3) JODI (acute kidney injury): (4) Hypomagnesemia: (5) Dehydration: (6) Hypokalemia: (7) Hypothyroidism: (8) Severe protein-calorie malnutrition: (9) Anisocoria: (10) Breast cancer, left: (11) High blood pressure: (12) High cholesterol: Total Time Total Time Spent Total Time Spent (In Minutes): 45 Discharge Plan Discharge Items Patient Disposition: Transfer Inpatient Rehab Fac Reason For Visit: WEAKNESS Discharge Diagnosis: Repaired duodenal ulcer, protein/calorie malnutrition secondary to chemotherapy generalized weakness Activity: Per Instructions section Non-emergency contact: Primary Care Provider and Oncologist Call non-emergency contact if: you have any medication questions, your symptoms worsen, your pain is not controlled and your pain is concerning for you Follow-up/Referrals: Josemanuel Lee MD [Primary Care Provider] - Audrey Dunaway CRNP [Nurse Practitioner] - 07/21/19 9:30 am (Please, follow up at [facility] on SundayJuly 20 at 9:30 am for labs to be drawn from your port. Please, follow up at [facility] with Audrey GRIFFITH on SundayJuly 21 at 7:50 am. This appointment will be followed by an infusion. *The office is located in the rear of [facility] so you should park BEHIND the hospital in [address] and enter via the entrance for [facility]. If you need to change the appointments, call the office at [phone].) Diet: Regular and Low Fiber Addtl Attending Provider Instructions: Ms. Ciarra Barrios is a wonderful 73 year old woman who presented to the [facility] ER on 07/08/2019 after being unable to walk into the [facility] for her IV fluid treatment for ongoing diarrhea secondary to chemotherapy. She notes her chemotherapy is currently on hold due to this side effect and her weight loss. While trying to walk up the steps she suddenly felt very weak in her legs and was unable to get any further so sat down and her friend alerted the [facility] who advised her to call for an ambulance. On prior documentation it was noted she was presyncopal however the patient denies this to me and just reports generalized weakness. She has not been out of the bed since then but feels improved since coming to the ER. She was initially admitted for her diarrhea/nausea/vomiting and placed on IV fluids and antinausea medication On hospital day 3 in the mold setter patient had worsening abdominal pain and a peritonitic abdomen on exam, CT scan revealed a newly peforated duodenal ulcer and she was taken back for surgery emergently. Duodenal Ulcer Perforation: - POD 8 s/p emergent exploratory lap with duodenal ulcer oversew. - NG tube removed, drains out -Tolerating regular diet today no vomiting - Diarrhea has slowed down - D/C zosyn not on any antibiotics moving forward - switched to oral protonix - she can take a shower on 07/18/2019, , no heavy lifting>25 LBS for 4 weeks, follow up with dr. Bains in two weeks [phone] Weakness: - Generalized weakness suspected secondary to severe protein-calorie malnutrition and dehydration from vomiting/diarrhea, as well as recent surgery. - Encouraged working with PT - For rehab at [facility] in [place] Severe protein-calorie malnutrition: - Advanced to full diet - Discontinued TPN - Could still use a better PO intake OJDI (acute kidney injury): - Cr elevated at time of admission, likely 2/2 dehydration. - resolved with IV fluids, electrolytes stable. Abnormal ECG: - ST changes without chest pain or shortness of breath on admission. - no elevation in troponin. - no further work up at this time. Hypomagnesemia: - improved after Mg 1 gram IV. - will continue to replete as necessary. -Recommend checking BMP mag and phos on arrival to rehab facility Diarrhea: - C diff stool cultures negative - Has resolved since d/c abx and advancing diet Anisocoria: - left mydriasis noted on admission, suspected to be secondary to scopolamine patch which was discontinued. - resolved, not noted on my exam today. Breast cancer, left: - taking a break from chemotherapy due to reduced weight and malnourished state. - per prior record by Dr. Farias, patient says she wants quality of life over quantity, feels much better after surgery due to no vomiting, improving abdominal pain. - Former patient of Dr. Bryan'shamar says she will need outpatient oncology appointment with new oncologist - Appointments now scheduled with cancer center upon discharge. Anxiety Secondary to cancer diagnosis ativan prn Hypokalemia: - resolved with NSS with KCl 20meq. Code Status: DNR/DNI Addtl Parachute Manufacturing Supervisor Provider Instructions: You have appointments scheduled with GLADIS Ventura at [facility] on July 20 at 9:30am for a port draw and on July 21 at 7:50 for an appt. with Audrey, followed by an infusion. Pending Studies at Discharge: No Stand-Alone Forms: [facility] Skilled Items Patient informed of condition?: Yes DNR: Yes Discharge Level of Care: Acute rehab Communicable Disease: No Discharge Prognosis: Improving Lines: Peripheral IV Urinary Catheter: No Medications and DC Order Prescriptions: New acetaminophen [Mapap (acetaminophen)] 325 mg Tablet 650 mg PO Q4H 30 Days Qty: 30 RF: 0 pantoprazole [Protonix] 40 mg tablet,delayed release (DR/EC) 40 mg PO DAILY 28 Days Qty: 28 RF: 0 Continued ondansetron HCl [Zofran] 8 mg tablet 4 mg PO UD PRN (Reason: Nausea) RF: 0 diphenoxylate-atropine [Lomotil] 2.5-0.025 mg tablet 1 tab PO BID PRN (Reason: Diarrhea) RF: 0 levothyroxine 50 mcg tablet 50 mcg PO DAILY RF: 0 lorazepam [Ativan] 1 mg tablet 1 mg PO BID RF: 0 loratadine [Claritin] 10 mg Tablet 10 mg PO DAILY PRN (Reason: ALLERGIES) RF: 0 Refresh Optive Advanced 0.5-1-0.5 % Drops 1 drp OPHTHALMIC (EYE) UD PRN (Reason: Dry Eyes) RF: 0 Discontinued scopolamine base [Transderm-Scop] 1 mg over 3 days patch 3 day 1 patch transdermal .Q3DAYS RF: 0 Discharge Orders: Discharge Order (Routine); Ordered 07/18/19 Ordered By: Salomón Lloyd Admission Data Admit Date/Time: 07/10/19 10:45 Attending Provider: Sonia Shaffer Admit Provider: Gio Shah Primary Care Provider: Josemanuel Lee Other Providers: [facility] ; Gio Shah ; Thompson Bains ; Parish Quezada ; Willam Farias ; Rocael Wagner Other Interventions: Discharge Summary Assessment (RN) Last Done: 07/18/19 09:24 DC Date/Time DO NOT enter until pt leaves facility: 07/18/19 11:02 Supervising Physician Co-Signing Physician Notes Resident Physician Supervision Note: I independently interviewed and examined the patient and verified the reyes history and physical, reviewed labs and image studies, discussed the case with the resident Dr. Lloyd and agree with the findings and care plan. Resident Activity Tracking Resident Involvement: Resident Care Provided Care Provided: Adult Hospital Medicine
== END 2019-07-18 11:02 | DRG 326 ==
LOC: 2N 14:04 → ED 14:04 → SUATTDRO 17:47 → 2N 19:21 → SUATTDRO 07-10 10:45 → 1E 07-11 04:16 → 3N 07-11 13:43 → 3E 07-14 15:10

== ENCOUNTER 2019-09-08 07:38 | Observation (INO) ==
--- NOTE | 2019-09-02 14:49 | Anesthesiology Consultation ---
Date of Service September 02, 2019 Assessment & Plan (1) Encounter for pre-operative examination: THIS ASSESSMENT IS FOR 09/07 LEFT BREAST LUMPECTOMY. FOR 09/03 ENDOSCOPY, SEE 08/31 ANESTHESIA EVAL BY VEL NG CRNA. COVID Status: As of 08/28 nurse assessment, patient denies travel to endemic area, known exposure/sick contacts, or symptoms of COVID19. Preoperative COVID19 testing completed on 08/31, results pending. S/P ex-lap/bowel resection 07/10/19 for perforated duodenal ulcer -- MAC 3, ETT 7.0. At end of case, patient remained intubated due to "taking poor fast breaths." Tx to ICU post-op. Chart Review Chart Review: Acceptable Risk for Surgery and Patient NOT seen in Pre Admission Testing History Surgery Operation Date: 09/08/19 08:20 Proposed Procedures p Left Breast Lumpectomy with Localization Iman Licsw, with Left Axillary Dissection - John Bowling MD, FACS Height/Weight Height: 5 ft 6 in Weight: 62.142 kg Allergies Allergy/AdvReac Type Severity Reaction Status Date / Time Sulfa (Sulfonamide Allergy Unknown Rash Verified 08/29/19 10:33 Antibiotics) Eywwuic-Oky-Esn Reductase AdvReac Unknown Muscle Pain Verified 08/29/19 10:33 Inhibitor Medications Home Medications Medication Instructions Recorded Confirmed Last Taken levothyroxine 50 mcg PO QAM 07/08/19 08/29/19 Unknown ondansetron HCl [Zofran] 4 mg PO UD PRN 07/08/19 08/29/19 Unknown jydnzllghbyscrjpitmdqi-nestilgl-axzqkclq 1 drp OPHTHALMIC (EYE) DAILY ml 08/14/19 08/29/19 Unknown 80 0.5 %-1 %-0.5 % eye drops pantoprazole [Protonix] 40 mg PO QAM 08/29/19 08/29/19 Unknown Past Medical History Medical History Breast cancer left, TCHP x 4 cycles from 03/25/2019 -> 05/27/2019, Herceptin on hold for breast cancer Fatty liver High cholesterol hx Hypothyroidism Lichen sclerosus Rosacea Past Family History Family History Grandmother (Maternal) , Passed age 93 of old age Breast cancer, Onset Age: 50 Likely not definitive - Had lumpectomy and did well after Mother , Passed age 86 of gallbladder cancer Breast cancer, Onset Age: 63 x 2 rounds Father , Passed age 73 of sepsis complications No problems noted. Brother No problems noted. Brother No problems noted. Sister Alzheimer disease Other Has no children Past Surgical History Surgical History H/O tooth extraction - itooth removed from roof of mouth History of colonoscopy 2016 Port-A-Cath in place (03/24/19) Port placement. Dr. Bowling 03/24/19 S/P exploratory laparotomy (07/11/19) Emergency Exploratory lap repair of duodenal ulcer perforation, Dr. Bains Social History Smoking Status: Never smoker Do You Dip or Chew Tobacco: No Hx Alcohol Use: No Hx Substance Use: No substance use type: does not use Testing Laboratory Results 09/01/19 WBC: 6.94 H/H: 12.0/37.0 PLATELETS: 266 SODIUM: 140 POTASSIUM: 4.0 CHLORIDE: 107 CO2: 27 BUN: 25 CREATININE: 1.05 GLUCOSE: 94 Electrocardiogram Date: 07/08/19 Poor data quality, interpretation may be adversely affected. Normal sinus rhythm ST & T wave abnormality, consider inferior ischemia. ST & T wave abnormality, consider anterolateral ischemia. When compared with ECG of 06-MAR-2019 11:15, Vent. rate has increased BY 34 BPM, T wave inversion now evident in Inferior leads, T wave inversion now evident in Anterolateral leads. *done in ED, patient presented with profound weakness. Troponin negative in ED. No CP or SOB noted per hospitalist notes. Subsequently admitted for perforated duodenal ulcer and underwent surgical intervention. Chest X-Ray Date: 07/08/19 Findings: + NAD Echocardiogram Date: 07/02/19 EF: 55-60% LV Function: normal Valvular Disease: + no significant valvular disease
[~2019-09-08 07:38] MED LIST: CEFAZOLIN 2000MG 2,000 MG/15 ML SYR IV SCH; LACTATED RINGER'S 1,000 ML IV SCH
--- NOTE | 2019-09-08 08:49 | Nuclear Medicine Report ---
LYMPHOSCINTIGRAPHY CLINICAL HISTORY: Left-sided breast cancer. PROCEDURE: Using standard sterile technique, 4 intradermal and one deep injection of 0.496 mCi of Lym phoseek was placed in the left breast. The patient tolerated the procedure well. There were no immedi ate complications. The patient was subsequently transported to the surgical suite. No imaging was obt ained at the referring physician's request. IMPRESSION: Injection of 0.496 mCi of Lymphoseek in the left breast. ACT 112: Negative or not required by law. Electronically signed by: Tomas Valdes M.D. 09/08/2019 8:48 AM
[2019-09-08] MEDS ORDERED: ACETAMINOPHEN 1000 MG/100 ML IV IV ONE (09:35)
--- NOTE | 2019-09-08 09:35 | History & Physical Bridge Note ---
Date of Service September 08, 2019 History & Physical Bridge Note I have examined the patient, reviewed the History & Physical and in the interval since the performance of the History & Physical I have noted the following changes of clinical significance: no changes noted
[2019-09-08] MEDS ORDERED: PROPOFOL IV EMULSION 10 MG/ML 20 ML VIAL IV ONE (09:38)
[2019-09-08] MEDS ORDERED: LIDOCAINE HCL 2% 2 ML VIAL/AMP(20MG/ML) INFIL ONE (09:38)
[2019-09-08] MEDS ORDERED: ONDANSETRON INJ 2 MG/ML 2 ML VIAL ONE (09:38)
[2019-09-08] MEDS ORDERED: fentaNYL citrate 100 MCG/2 ML VIAL ONE ×2 (09:38→10:50)
[2019-09-08] MEDS ORDERED: MIDAZOLAM HCL 1 MG/ML 2ML VIAL ONE (09:40)
[2019-09-08] MEDS ORDERED: BUPIVACAINE 0.5 % 5 MG/1 ML MPF 30ML VIAL ONE (09:42)
[2019-09-08] MEDS ORDERED: METHYLENE BLUE 0.5% 10 ML VIAL ONE (09:43)
--- NOTE | 2019-09-08 09:43 | Anesthesiology Consultation ---
Date of Service September 08, 2019 Assessment & Plan Chart Review Chart Review: Acceptable Risk for Surgery Consults Requested none History Surgery Operation Date: 09/08/19 09:50 Proposed Procedures p Left Breast Lumpectomy with Localization Iman Injection Molding Machine Operator, with Left Axillary Dissection, Sentinal Lymph Node Injection Nuclear Medicine - John Bowling MD, FACS Height/Weight Height: 5 ft 6 in Weight: 61.099 kg Allergies Allergy/AdvReac Type Severity Reaction Status Date / Time Sulfa (Sulfonamide Allergy Unknown Rash Verified 09/08/19 08:42 Antibiotics) Bcebwoh-Tdz-Mdc Reductase AdvReac Unknown Muscle Pain Verified 09/08/19 08:42 Inhibitor Medications Home Medications Medication Instructions Recorded Confirmed Last Taken levothyroxine 50 mcg PO QAM 07/08/19 09/08/19 09/07/19 08:00 ondansetron HCl [Zofran] 4 mg PO UD PRN 07/08/19 09/08/19 08/05/19 xazoumiynxdjfongiuvpne-nfetvckw-wuqevxdt 1 drp OPHTHALMIC (EYE) DAILY ml 08/14/19 09/08/19 08/31/19 80 0.5 %-1 %-0.5 % eye drops pantoprazole [Protonix] 40 mg PO QAM 08/29/19 09/08/19 09/07/19 08:00 Active Medications Generic Name Dose Route Start Last Admin Trade Name Freq PRN Reason Stop Dose Admin Lactated Ringer's 1,000 mls @ 15 mls/hr 09/08/19 06:00 09/08/19 08:59 Lr IV 09/09/19 05:59 15 mls/hr .Q24H LISSETTE Administration NPO Date Last Intake of Fluids: 09/07/19 Time Last Intake of Fluids: 20:30 Date Last Intake of Solids: 09/07/19 Time Last Intake of Solids: 20:30 Past Medical History Medical History Breast cancer left, TCHP x 4 cycles from 03/25/2019 -> 05/27/2019, Herceptin on hold for breast cancer Fatty liver High cholesterol hx Hypothyroidism Lichen sclerosus Rosacea Past Family History Family History Grandmother (Maternal) , Passed age 93 of old age Breast cancer, Onset Age: 50 Likely not definitive - Had lumpectomy and did well after Mother , Passed age 86 of gallbladder cancer Breast cancer, Onset Age: 63 x 2 rounds Father , Passed age 73 of sepsis complications No problems noted. Brother No problems noted. Brother No problems noted. Sister Alzheimer disease Other Has no children Past Surgical History Surgical History H/O tooth extraction - itooth removed from roof of mouth History of colonoscopy 2016 Port-A-Cath in place (03/24/19) Port placement. Dr. Bowling 03/24/19 S/P exploratory laparotomy (07/11/19) Emergency Exploratory lap repair of duodenal ulcer perforation, Dr. Bains Social History Smoking Status: Never smoker Do You Dip or Chew Tobacco: No Hx Alcohol Use: No Hx Substance Use: No substance use type: does not use Physical Exam Vital Signs Last Vital Signs Temp 36.6 C 09/08/19 08:56 Pulse 72 09/08/19 08:56 Resp 16 09/08/19 08:56 BP 137/73 09/08/19 08:56 Pulse Ox 98 09/08/19 08:56
[2019-09-08] MEDS ORDERED: PROMETHAZINE HCL 12.5 MG in SODIUM CHLORIDE 0.9% 50 ML IV PRN ×2 (10:17→13:08)
[2019-09-08] MEDS ORDERED: ONDANSETRON INJ 2 MG/ML 2 ML VIAL IV PRN (10:17)
[2019-09-08] MEDS ORDERED: ATROPINE SULFATE 0.1 MG/ML 10ML SYR IV PRN (10:17)
[2019-09-08] MEDS ORDERED: METOCLOPRAMIDE HCL INJ 5 MG/ML 2 ML VIAL IV PRN (10:17)
[2019-09-08] MEDS ORDERED: ePHEDrine sulfate 50 MG/ML AMP ONE (10:17)
[2019-09-08] MEDS ORDERED: HYDROmorphone INJ 2 MG/ML SYR/VIAL IV PRN (10:17)
[2019-09-08] MEDS ORDERED: ePHEDrine sulfate 50 MG/ML AMP IV PRN (10:17)
--- NOTE | 2019-09-08 11:42 | Fluoroscopy Report ---
FL chest 1V frontal CLINICAL HISTORY: LT BREAST SPONGE COUNT COMPARISON STUDY: None FLUOROSCOPY TIME: 1 second NUMBER OF FLUOROSCOPIC IMAGES: 1 FINDINGS: Soft tissue operative changes left breast. Drainage catheter is in position. No evidence fo r a radiopaque foreign body. IMPRESSION: Expected postoperative soft tissue change. No evidence for residual surgical instrument ACT 112: Negative or not required by law. The above report was generated using voice recognition software. It may contain grammatical, syntax or spelling errors. Electronically signed by: Sachin Ko M.D. 09/08/2019 11:40 AM
[2019-09-08] MEDS ORDERED: PHENYLEPHRINE 100MCG/ML 5ML SYR ONE (11:47)
--- NOTE | 2019-09-08 11:48 | Post Operative Brief Note ---
PG Immediate Post Op with CF Date of Surgery September 08, 2019 Pre & Post Diagnosis Operation Date: 09/08/19 09:50 Pre-Op Diagnosis: Left Breast Cancer with left axillary metastasis Post-Op Diagnosis: Left Breast Cancer with left axillary metastasis I identified the patient and participated in the time-out.: Yes Procedure Operation Date: 09/08/19 09:50 Actual Procedures p Left Breast Lumpectomy with Localization Iman Orthotic And Prosthetic Technician, with Left Axillary Dissection, Sentinal Lymph Node Injection Nuclear Medicine(Left) - John Bowling MD, FACS Surgeon John Bowling MD, FACS Merchandise Planner Alise Teague Estimated Blood Loss 20 Findings Consistent with Post-Op Diagnosis Specimens Specimen Description: A: left Axillary Lymph Node B: Left Axillary Tissue C: Left Breast Tissue; nipple anterior; long silk lateral; short silk medial D: Additional Inferior/Deep tissue; long silk lateral; short silk medial; methylne blue= new margin; plain suture= deep/posterior E: Additional Superior/Deep Tissue; Long silk lateral; short silk medial; methylne blue= newmargin; plain suture= deep/posterior Drains Nirav-Melchor Drain (x2; 15Fr round)
[2019-09-08] MEDS ORDERED: ACETAMINOPHEN 1,000 MG/100 ML VIAL IV ONE (11:49)
[2019-09-08] MEDS: fentaNYL citrate 100 MCG/2 ML VIAL IV PRN ×2 (12:25→12:30)
[2019-09-08] MEDS ORDERED: ACETAMINOPHEN 325 MG TAB PO PRN (13:08)
[2019-09-08] MEDS ORDERED: HYDROCODONE/ACETAMOPHEN 5/325MG TAB PO PRN ×2 (13:08)
[2019-09-08] MEDS: MoRPHine SULFATE 2 MG/ML CARP IV PRN ×2 (13:22→17:32)
--- NOTE | 2019-09-08 13:38 | Anesthesiology Progress Note ---
Date of Service September 08, 2019 Anesthesia Post Procedure Vital Signs Vital Signs: Temp Pulse Pulse Resp BP Pulse Ox 09/08/19 12:40 36.5 C 86 18 154/74 H 94 09/08/19 12:30 84 18 166/74 H 99 09/08/19 12:20 84 18 144/64 H 99 09/08/19 12:10 86 19 158/73 H 100 09/08/19 12:04 36.3 C L 84 20 167/69 H 100 09/08/19 08:56 36.6 C 72 16 137/73 98 Transfer of Care Handoff Completed per policy Notes Mental Status: alert / awake / arousable and participated in evaluation Patient Amnestic to Procedure: Yes Nausea / Vomiting: adequately controlled Pain: adequately controlled Airway Patency, RR, SpO2: stable & adequate BP & HR: stable & adequate Hydration State: stable & adequate Anesthetic Complications: no major complications apparent
--- NOTE | 2019-09-08 13:46 | Operative Report (OR) ---
DATE OF OPERATION: 09/08/2019 NAME OF OPERATION: Iman Utilization Review Rn left lumpectomy with left axillary dissection. PREOPERATIVE DIAGNOSIS: Left breast cancer with left axillary metastatic disease. POSTOPERATIVE DIAGNOSIS: Left breast cancer with left axillary metastatic disease. STAFF SURGEON: John Bowling MD. APARTMENT LOCATOR: Bianca Teague PA-C. ANESTHESIA: General. DESCRIPTION OF PROCEDURE: The patient was brought in the operating room and placed on the operating table in supine position. Her left breast and axilla were prepped and draped in usual fashion. Using the Iman Utilization Review Rn, I was able to localize the marked lymph node in the inferior left axilla. Incision was made carrying dissection deep down into the axilla and then we continued the dissection cephalad to the axillary vein and deep to the thoracodorsal complex. The patient did have lymph nodes posterior to the pectoralis minor muscle, which we did not attempt to excise. The axillary tissue was excised. An additional lymph node was also excised and sent. The site was irrigated and then at the end of the case, in the left axilla, a drain was placed, a 15 round Nirav-Melchor drain, secured using 3-0 nylon suture. Then the deep tissue reapproximated using 2-0 plain suture and then the skin reapproximated using 4-0 nylon suture. The left lumpectomy was performed using the Iman Anjel again to localize the clip, which was inferior near the edge of the areola at approximately 7 o'clock. We made a large elliptical incision around the nipple areola carrying dissection well down around this area using the Iman Utilization Review Rn to localize the chip. We did place this tissue as well as the axillary tissue in the Faxitron and Dr. Wiley was able to see the markers. We felt that the tumor was somewhat close inferiorly. Therefore, we took additional inferior and superior tissue. Prior to that, the left breast tissue was marked with the nipple anterior, long silk suture lateral, short silk suture medial. The additional superior and inferior tissue which also included very deep tissue toward the muscle was also marked with long silk suture lateral, short silk suture medial and then the plain suture was the deep edge with methylene blue as the new margin. At this point, a drain was placed into the left breast wound also, secured to the skin using 3-0 nylon suture. The deep tissue at the breast was reapproximated using 2-0 plain suture and then the skin reapproximated using 4-0 Monocryl subcuticular with Steri-Strips. Dressings were applied and the patient was transferred to recovery room in stable condition. I attest to the content of the Intraoperative Record and any orders documented therein. Any exception s are noted below.
[2019-09-08] MEDS ORDERED: SODIUM CHLORIDE 0.9% 1000ML 1,000 ML IV SCH (14:00)
--- NOTE | 2019-09-08 14:43 | Mammography Report ---
SPECIMEN: 09/08/2019 CLINICAL HISTORY: Biopsy-proven malignancy in the left subareolar breast as well as biopsy-proven lef t axillary jose metastasis status post chemotherapy. Patient presents for surgical treatment. COMPARISON: Comparison is made to exams dated: 08/28/2019 localization, 08/28/2019 mammogram, 0 breast MRI, 02/13/2019 ultrasound biopsy, 02/13/2019 mammogram, and 02/13/2019 ultrasound biopsy - [facility]. FINDINGS: Two specimen radiographs were obtained. The first specimen radiograph was obtained from th e left axillary lymph node sampling. An orb-shaped biopsy marker and Iman Field Crop Farming Supervisor reflector are noted within 1 of the lymph nodes within the tissue specimen. At least 3 other lymph nodes are identified in the tissue specimen. The second specimen obtained from the left breast demonstrates the ribbon-shaped biopsy marker, dense mass and Iman Field Crop Farming Supervisor reflector within the tissue specimen. There are diffuse calcifications. The re flector is near the medial margin and the surgeon reported additional medial tissue was also being ob tained but not imaged. IMPRESSION: SPECIMEN Left axillary and breast tissue specimen radiographs, as above. Eri Wiley M.D. ay/:09/08/2019 12:05:15 Planning Lead: OR Technologist, [facility]
[2019-09-08] MEDS: CEFAZOLIN 1000MG 1,000 MG/7.5 ML SYR IV SCH (17:07)
--- NOTE | 2019-09-08 17:28 | Hospitalist Consultation ---
Date of Consultation September 08, 2019 Assessment & Plan (1) Breast cancer, left: * POD #0 s/p Iman Social Service Coordinator left lumpectomy with left axillary dissection with Dr. Bowling. Pre-op h/h * Cefazolin for prophylaxis * PT/OT/pain management/DVT prophylaxis per primary service * CBC in AM (2) Duodenal ulcer: * Hx of perforated duodenol ulcer end of June 2019 -- surgical repair/oversew with Dr Bains. * Continue protonix 40mg PO daily (3) Hypothyroidism: * Last TSH 6.61, FT4 1.53 on June 2019 * Continue home levothyroxine 50mcg daily * Repeat TFT in AM (4) Anemia: * History of -- hgb down to 10s in setting of perf ulcer as above * --> pre-op h/h stable at * CBC in AM (5) DVT prophylaxis: * Per primary service -- SCDs Dispo: per patient, she is to be in hospital likely until Sunday Thank you for allowing hospitalist service to participate in the care of Ms. Barrios. Medicine will follow along. Supervising Physician Co-Signing Physician Notes PA Supervision Note: I personally saw and examined the patient. I verified all reyes points and agree with GUNNAR Acharya with the following exceptions and/or additions: Patient doing very well when I saw her. Her pain is controlled. She denies chest pain or shortness of breath. Denies any abdominal pains or indigestion. She had some nausea earlier in the day after her surgery but this is now resolved after receiving a dose of Zofran. History and ROS reviewed Vitals reviewed Gen: AAOx3, NAD, alopecia HEENT: Anicteric sclerae, EOMI CV: RRR no mgr nl S1S2, chest with dressing in place not removed Pulm: CTAB no wcr Abd: +BS soft NT ND no masses or hernias Ext: No edema, 2+ DP pulses Skin: No rashes, warm/dry Neuro: Full strength throughout 74-year-old female with history of breast cancer metastatic to the lymph nodes of the axilla, recent duodenal ulcer with perforation, and hypothyroidism, here for left breast lumpectomy. Doing well postoperatively We will follow along Follow CBC and BMP in the morning I addressed her CODE STATUS-she wishes to be a DNR/DNI History of Present Illness Reason for Consultation: Medical Management Requesting Physician: Dr Bowling Attending Physician: John Bowling MD, FACS History of Present Illness 74 year old female with PMHx hypothyroidism, lichen sclerosus, and most recently perforated duodenal ulcer July 2019 requiring emergent surgical repair following treatment with neoadjuvent therapy for breast Ca (follows with Dr. Chao) presented for LEFT breast lumpectomy with lymph node dissection with Dr. Bowling. Patient up in chair with nephew at bedside eating dinner. Patient states tolerable pain although admits she did just receive a dose of morphine. She states she is generally feeling ok, states less anxiety regarding the recent breast cancer in comparison to recent perforated ulcer that required surgical intervention earlier this year. States she has been urinating without difficulty since coming back from the OR but no BM as of yet. She states she has lost approximately 20 pounds since the beginning of the year and did not have much appetite initially thought to be related to neoadj. chemo, but turned out to be the perforated ulcer. She is to be on protonix 40mg daily. One episode of nausea following surgery but has been resolved with administration of zofran. States she lives alone but that she has the ability to stay with a friend who had b/l mastectomy a year ago and had 4 drains placed, so she is familiar with these and able to help some. She states she would like to stay as long as possible/she needs to have extra help. Agreeable for me to speak with CM department to see about possible home health to come and assist with some of these ADLs. Patient agreeable. She denies chest pain, shortness of breath, vomiting, abdominal pain, diarrhea or constipation at this time. Allergies Allergy/AdvReac Type Severity Reaction Status Date / Time Sulfa (Sulfonamide Allergy Unknown Rash Verified 09/08/19 08:42 Antibiotics) Omykxel-Zjc-Xxa Reductase AdvReac Unknown Muscle Pain Verified 09/08/19 08:42 Inhibitor Home Medications Home Medications Medication Instructions Recorded Confirmed Type levothyroxine 50 mcg PO QAM 07/08/19 09/08/19 History ondansetron HCl [Zofran] 4 mg PO UD PRN 07/08/19 09/08/19 History sqptcvhpwbcelwzshxhqnc-ucvhcmwm-qybtjelf 1 drp OPHTHALMIC (EYE) DAILY ml 08/14/19 09/08/19 History 80 0.5 %-1 %-0.5 % eye drops pantoprazole [Protonix] 40 mg PO QAM 08/29/19 09/08/19 History Patient History Medical History Breast cancer left, TCHP x 4 cycles from 03/25/2019 -> 05/27/2019, Herceptin on hold for breast cancer Fatty liver High cholesterol hx Hypothyroidism Lichen sclerosus Rosacea Surgical History H/O tooth extraction - itooth removed from roof of mouth History of colonoscopy 2017 Port-A-Cath in place (03/24/19) Port placement. Dr. Bowling 03/24/19 S/P exploratory laparotomy (07/11/19) Emergency Exploratory lap repair of duodenal ulcer perforation, Dr. Bains Family History Grandmother (Maternal) , Passed age 93 of old age Breast cancer, Onset Age: 50 Likely not definitive - Had lumpectomy and did well after Mother , Passed age 86 of gallbladder cancer Breast cancer, Onset Age: 63 x 2 rounds Father , Passed age 73 of sepsis complications No problems noted. Brother No problems noted. Brother No problems noted. Sister Alzheimer disease Other Has no children Social History Smoking Status: Never smoker Second Hand Exposure: No; Do You Dip or Chew Tobacco: No; Tobacco Cessation Education Requested by Patient: No Hx Alcohol Use: No Hx Substance Use: No Preferred Language: Gabonese Communication Ability: Effective Visual Impairment: Limited Hearing Ability: Normal Services Tech Required: No Beliefs That Will Affect Care: None marital status: Single Current Living Situation: Alone Current Living Situation Comment: Currently lives with friend for extra help current occupational status: retired current occupation: Retired with [employer] Other Information That Helps Us Care for You: No Feels Safe at Home: Yes Safety Concerns: Feels Safe At This Time Childhood Exposure to Second-Hand Smoke: Yes (Father ) caffeine: No during the past year weight has: decreased > 10 lbs Dental Care, Regularly: Yes Review of Systems Review of Systems: All systems reviewed & are unremarkable except as noted in HPI & below Physical Exam Constitutional: + thin and + cachectic; no acute distress Eyes: + anicteric sclerae and PERRL Neck: trachea midline, no thyromegaly Respiratory: normal respiratory effort, lungs clear to auscultation Cardiovascular: RRR, no murmur, no edema Chest (Breasts): Additional Comments: dressing to LEFT chest/axilla -- c/d/i. no evidence of erythema. minimally tender to palpation 2 ANDREW drains patent -- axillary and inferior aspect L breast -- with scant bloody drainage present Gastrointestinal (Abdomen): normal bowel sounds, soft, nontender, no hepatosplenomegaly Musculoskeletal: no cyanosis or clubbing, extremities motor strength 5/5 Skin: no rashes, warm and dry Neurologic: PERRL, EOMI, accommodation nl, no face palsy, no dysarthria Psychiatric: A+Ox3, euthymic affect Lymphatic: no cervical or axillary lymphadenopathy Results & Data Results & Data ([facility]) Vital Signs (Past 12 Hours) Vital Signs Temp Pulse Pulse Pulse Resp BP Pulse Ox 09/08/19 16:03 36.4 C L 70 16 117/67 97 09/08/19 15:08 36.7 C 75 16 127/67 97 09/08/19 14:00 36.5 C 80 16 112/59 L 95 09/08/19 13:30 36.6 C 80 16 143/71 H 97 09/08/19 13:00 36.6 C 83 16 148/77 H 96 09/08/19 12:40 36.5 C 86 18 154/74 H 94 09/08/19 12:30 84 18 166/74 H 99 09/08/19 12:20 84 18 144/64 H 99 09/08/19 12:10 86 19 158/73 H 100 09/08/19 12:04 36.3 C L 84 20 167/69 H 100 09/08/19 08:56 36.6 C 72 16 137/73 98 PG Care Time/CCT Total # of Minutes Spent Total Time Spent with Patient: Total time spent is greater than 50% in coordination of care (as documented) at patient's floor/unit and/or counseling patient: Coding Level of Care Code 60138 Inpt Consult Level 3 Diagnoses Breast cancer, left C50.912 Duodenal ulcer K26.9 Hypothyroidism E03.9 Anemia D64.9 DVT prophylaxis Z29.9
[2019-09-08] MEDS: ONDANSETRON INJ 2 MG/ML 2 ML VIAL IV PRN (17:32)
[2019-09-08] MEDS: HEPARIN 100 UNIT/ML 5ML FLUSH IV PRN (22:45)
[2019-09-09] MEDS: HEPARIN 100 UNIT/ML 5ML FLUSH IV PRN ×4 (02:23→23:57)
[2019-09-09] MEDS: MoRPHine SULFATE 2 MG/ML CARP IV PRN (02:23)
[2019-09-09] MEDS: CEFAZOLIN 1000MG 1,000 MG/7.5 ML SYR IV SCH ×4 (02:24→23:57)
--- NOTE | 2019-09-09 06:12 | Surgery Progress Note ---
Date of Service September 09, 2019 Assessment & Plan (1) H/O lumpectomy: Some pain well controlled Drainage is minimal and expected Dressings in place without significant bleeding or hematoma Continue IV antibiotics and supportive care Possible discharge in 1 to 2 days We will need visiting nurse Results & Data Vital Signs (Past 12 Hours) Vital Signs Temp Pulse Resp BP Pulse Ox 09/09/19 03:06 36.6 C 68 16 145/72 H 97 09/08/19 23:49 36.7 C 70 16 123/68 98 09/08/19 20:27 36.6 C 73 18 128/72 95 PG Care Time/CCT Total # of Minutes Spent Total Time Spent with Patient: Total time spent is greater than 50% in coordination of care (as documented) at patient's floor/unit and/or counseling patient: Coding Level of Care Code None Diagnoses H/O lumpectomy Z98.890
[2019-09-09 06:28] LABS: Eosinophils # (auto) 0.17 K/uL (0-0.5); Eosinophils % (auto) 2.3 %; Hematocrit (blood only) 32.3 % (37-47); Hemoglobin 10.4 g/dL (12.0-16.0); Immature Granulocytes # (auto) 0.01 K/uL (0.00-0.02); Immature Granulocytes % (auto) 0.1 %; Lymphocytes # (auto) 1.84 K/uL (1.2-3.4); Lymphocytes % (auto) 25.2 %; Mean Corpuscular Hemoglobin 29.1 pg (25-34); Mean Corpuscular Hgb Conc 32.2 g/dL (32-36); Mean Corpuscular Volume 90.5 fL (80-100); Mean Platelet Volume 9.1 fL (7.4-10.4); Monocytes # (auto) 0.65 K/uL (0.11-0.59); Monocytes % (auto) 8.9 %; Neutrophils # (auto) 4.64 K/uL (1.4-6.5); Neutrophils % (auto) 63.5 %; Platelet Count 246 K/uL (130-400); RDW Coefficient of Variation 13.1 % (11.5-14.5); RDW Standard Deviation 43.5 fL (36.4-46.3); Red Blood Count 3.57 M/uL (4.2-5.4); White Blood Count 7.31 K/uL (4.8-10.8)
[2019-09-09] MEDS: LEVOTHYROXINE SODIUM 50 MCG TABLET PO SCH (06:28)
[2019-09-09 07:09] LABS: Albumin Level 2.7 gm/dl (3.4-5.0); Calcium 8.9 mg/dl (8.5-10.1); Creatinine Clr Calc Pharmacy 56.5 ml/min; Est GFR (African American) 81.1; Potassium 3.9 mmol/L (3.5-5.1)
[2019-09-09 07:12] LABS: Albumin Globulin Ratio 0.7 (0.9-2); Bilirubin,Total 0.9 mg/dl (0.2-1); Globulin 4.1 gm/dl (2.5-4.0); Phosphorus 4.1 mg/dl (2.5-4.9); Total Protein 6.8 gm/dl (6.4-8.2)
[2019-09-09] MEDS: PANTOprazole 40 MG TAB PO SCH (09:23)
[2019-09-09] MEDS: HEPARIN SOD 5,000 UNIT/0.5 ML VIAL SQ SCH ×2 (09:24→21:50)
--- NOTE | 2019-09-09 11:15 | Hospitalist Progress Note ---
Date of Service September 09, 2019 Assessment & Plan (1) Breast cancer, left: * POD #0 s/p Iman Panel Wirer left lumpectomy with left axillary dissection with Dr. Bowling. Pre-op h/h * Cefazolin for prophylaxis * PT/OT/pain management/DVT prophylaxis per primary service * CBC stable -- 10.4/32.3 -- likely combination of blood loss following surgery/dilutional from fluids (2) Duodenal ulcer: * Hx of perforated duodenol ulcer end of June 2019 -- surgical repa ir/oversew with Dr Bains. * Continue protonix 40mg PO daily (3) Hypothyroidism: * Last TSH 6.61, FT4 1.53 on June 2019 * Continue home levothyroxine 50mcg daily * Repeat TSH 0.869 (4) Anemia: * History of -- hgb down to 10s in setting of perf ulcer as above * --> pre-op h/h stable at * CBC as above * CBC in AM (5) DVT prophylaxis: * Per primary service -- SCDs, Heparin SC BID Dispo: per patient, she is to be in hospital likely until Sunday Thank you for allowing hospitalist service to participate in the care of Ms. Barrios. Medicine will sign off at this time. Please call with any questions/concerns. Admission and Anticipated Discharge Date Admission Date: September 08, 2019 Supervising Physician Co-Signing Physician Notes Attending Attestation - Chart reviewed in detail, care plan d/w GUNNAR Acharya. I agree w/ the reyes components of her documentation. 74yo female - s/p left breast lumpectomy. Medical problems stable. Labs/vitals acceptable. Gio Guerra MD Subjective Patient evaluated. Pain tolerable with medications. She states she has not needed much for pain. Decreased pain to axilla, but did have some numbness/pain earlier today. Minimal output from ANDREW drains. Not much of an appetite, but states she has ordered nutritional supplements that she has been taking at home with 20g protein and has them at her friends house which she will be going to at discharge. Denies fevers, chills, chest pain, shortness of breath, n/v/d at this time. Plans for discharge tomorrow. Does not want any home health/extra people in the home at this time. States friend had double mastectomy in last year and is able to help. CM to see again tomorrow if she changes her mind. Review of Systems Review of Systems: All systems reviewed & are unremarkable except as noted in HPI & below Physical Exam Constitutional: + thin and + cachectic; no acute distress Eyes: + anicteric sclerae and PERRL Neck: trachea midline, no thyromegaly Respiratory: normal respiratory effort, lungs clear to auscultation Cardiovascular: RRR, no murmur, no edema Chest (Breasts): Additional Comments: dressing to LEFT breast, c/d/i [address], scant bloody drainage present nontender to palpation A port present to R chest wall Gastrointestinal (Abdomen): normal bowel sounds, soft, nontender, no hepatosplenomegaly Musculoskeletal: no cyanosis or clubbing, extremities motor strength 5/5 Skin: no rashes, warm and dry Neurologic: PERRL, EOMI, accommodation nl, no face palsy, no dysarthria Psychiatric: A+Ox3, euthymic affect Lymphatic: no cervical or axillary lymphadenopathy Results & Data Results & Data ([facility]) Vital Signs (Past 12 Hours) Vital Signs Temp Pulse Resp BP Pulse Ox 09/09/19 07:25 36.8 C 75 18 126/75 97 09/09/19 07:15 36.8 C 75 18 126/75 97 09/09/19 03:06 36.6 C 68 16 145/72 H 97 09/08/19 23:49 36.7 C 70 16 123/68 98 Laboratory Results 09/09/19 09/09/19 09/09/19 Range/Units 05:45 05:45 05:45 WBC 7.31 (4.8-10.8) K/uL RBC 3.57 L (4.2-5.4) M/uL Hgb 10.4 L (12.0-16.0) g/dL Hct 32.3 L (37-47) % MCV 90.5 (80-100) fL MCH 29.1 (25-34) pg MCHC 32.2 (32-36) g/dL RDW Std Deviation 43.5 (36.4-46.3) fL RDW Coeff of Rafael 13.1 (11.5-14.5) % Plt Count 246 (130-400) K/uL MPV 9.1 (7.4-10.4) fL Immature Gran % (Auto) 0.1 % Neut % (Auto) 63.5 % Lymph % (Auto) 25.2 % [place] % (Auto) 8.9 % Eos % (Auto) 2.3 % Baso % (Auto) 0.0 % Neut # (Auto) 4.64 (1.4-6.5) K/uL Lymph # (Auto) 1.84 (1.2-3.4) K/uL [place] # (Auto) 0.65 H (0.11-0.59) K/uL Eos # (Auto) 0.17 (0-0.5) K/uL Baso # (Auto) 0.00 (0-0.2) K/uL Immature Gran # (Auto) 0.01 (0.00-0.02) K/uL Sodium 140 (136-145) mmol/L Potassium 3.9 (3.5-5.1) mmol/L Chloride 108 H (98-107) mmol/L Carbon Dioxide 26 (21-32) mmol/L Anion Gap 6.0 (3-11) BUN 24 H (7-18) mg/dl Creatinine 0.83 (0.6-1.2) mg/dl Est Cr Clr Drug Dosing 56.5 ml/min Est GFR ( Amer) 81.1 Est GFR (Non-Af Amer) 70.0 BUN/Creatinine Ratio 29.0 H (10-20) Glucose 90 (70-99) mg/dl Calcium 8.9 (8.5-10.1) mg/dl Phosphorus 4.1 (2.5-4.9) mg/dl Total Bilirubin 0.9 (0.2-1) mg/dl AST 66 H (15-37) U/L ALT 89 H (12-78) U/L Alkaline Phosphatase 73 (45-117) U/L Total Protein 6.8 (6.4-8.2) gm/dl Albumin 2.7 L (3.4-5.0) gm/dl Globulin 4.1 H (2.5-4.0) gm/dl Albumin/Globulin Ratio 0.7 L (0.9-2) TSH 0.869 (0.300-4.500) uIu/ml PG Care Time/CCT Total # of Minutes Spent Total Time Spent with Patient: Total time spent is greater than 50% in coordination of care (as documented) at patient's floor/unit and/or counseling patient: Coding Level of Care Code 71976 Subseq Hosp Care Lvl 2 Diagnoses Breast cancer, left C50.912 Duodenal ulcer K26.9 Hypothyroidism E03.9 Anemia D64.9 DVT prophylaxis Z29.9
[2019-09-09] MEDS: ONDANSETRON INJ 2 MG/ML 2 ML VIAL IV PRN (17:38)
[2019-09-10] MEDS: MoRPHine SULFATE 2 MG/ML CARP IV PRN ×2 (00:02→13:26)
[2019-09-10 00:10] VITALS: TEMP 99
[2019-09-10] MEDS: HEPARIN 100 UNIT/ML 5ML FLUSH IV PRN ×2 (05:28→14:20)
[2019-09-10] MEDS: LEVOTHYROXINE SODIUM 50 MCG TABLET PO SCH (05:39)
[2019-09-10 05:59] LABS: Hematocrit (blood only) 35.1 % (37-47); Hemoglobin 11.3 g/dL (12.0-16.0); Mean Corpuscular Hemoglobin 28.9 pg (25-34); Mean Corpuscular Hgb Conc 32.2 g/dL (32-36); Mean Corpuscular Volume 89.8 fL (80-100); Mean Platelet Volume 9.1 fL (7.4-10.4); Platelet Count 268 K/uL (130-400); RDW Coefficient of Variation 13.1 % (11.5-14.5); Red Blood Count 3.91 M/uL (4.2-5.4); White Blood Count 7.75 K/uL (4.8-10.8)
[2019-09-10 07:43] VITALS: BP 128/72; O2SAT 94
[2019-09-10] MEDS: CEFAZOLIN 1000MG 1,000 MG/7.5 ML SYR IV SCH (09:11)
[2019-09-10] MEDS: PANTOprazole 40 MG TAB PO SCH (09:11)
[2019-09-10] MEDS: HEPARIN SOD 5,000 UNIT/0.5 ML VIAL SQ SCH (09:12)
--- NOTE | 2019-09-10 13:20 | Discharge Summary (DS) ---
PRINCIPAL DIAGNOSIS: Left breast cancer. PROCEDURES: The patient underwent left breast lumpectomy with left axillary dissection. HISTORY OF PRESENT ILLNESS: The patient is a 74-year-old female who has known left breast cancer with metastatic disease to the left axilla, brought into the hospital on 09/08/2019 for definitive surgery. She underwent left lumpectomy with left axillary dissection, which she did tolerate well. She has done relatively well here with both diet and activity. She is felt stable for discharge home today with visiting a nurse and one drain in place. She will have 1 drain removed prior to discharge. We will see her in the surgical clinic within 1 week.
[2019-09-10 14:10] VITALS: PULSE 86
== END 2019-09-10 15:19 | disposition home or self-care (01) ==
LOC: ASU 07:38 → INTOOBSV 11:49 → 3E 11:49